=== PATIENT | male | born 1995 | race Caucasian/White ===

== ENCOUNTER 2019-03-11 14:54 | Inpatient (IN) ==
[2019-03-11] MEDS ORDERED: SODIUM CHLORIDE 0.9% 1000ML 1,000 ML IV ONE (15:30)
[2019-03-11] MEDS ORDERED: MoRPHine SULFATE 4 MG/ML 1 ML CARP\\VIAL IV STA (15:31)
[2019-03-11] MEDS ORDERED: VANCOMYCIN HCL 2,000 MG in SODIUM CHLORIDE 0.9% 500 ML IV ONE (15:57)
[2019-03-11] MEDS ORDERED: VANCOMYCIN CONSULT ACTIVE PRN ×2 (15:57→18:01)
--- NOTE | 2019-03-11 16:02 | XRay Report ---
LEFT HAND 3 VIEWS HISTORY: middle finger infection COMPARISON: None. FINDINGS: There is no fracture or dislocation. Soft tissue swelling at the PIP joint of the middle fi nger. No underlying bony destruction to suggest osteomyelitis. No radiopaque foreign bodies. IMPRESSION: Soft tissue swelling at the PIP joint of the middle finger. No underlying bony abnormality. Electronically signed by: Adam James M.D. 03/11/2019 4:01 PM
--- NOTE | 2019-03-11 16:08 | Emergency Department Note ---
ED Provider Note CHIEF COMPLAINT: Finger infection HISTORY OF PRESENTING ILLNESS: This is a 23-year-old male who presents the emergency department with complaint of left middle finger infection that has been ongoing for the past 2 weeks. Patient states that he initially injured the finger while doing cow, states he hit the knuckle and the skin split open. He states at the time he had washed it out and put liquid Band-Aid on the wound. He was seen here on 03/01 with concern for the finger becoming infected. He states that he is allergic to penicillins and sulfa drugs, he was subsequently treated with clindamycin and doxycycline at that time, he states he took his last dose today. He states since yesterday he has been having worsening swelling and pain spreading of the finger and has been having difficulty moving the finger because of this. He also has noted some pus draining from the wound, but denies any foul smell. He denies any streaking and he denies any fevers or chills. He did note that he put honey on the wound today to try to treat the infection. He is right-hand dominant. His tetanus is up-to-date. He denies any headaches, chest pain, shortness of breath, abdominal pain, nausea or vomiting, back pain, urinary complaints, or unusual rash. REVIEW OF SYSTEMS: A complete 10 point review of systems was reviewed with the patient with pertinent positives and negatives as per history of present illness. All else were negative. PAST MEDICAL HISTORY: No significant past medical or surgical history SOCIAL HISTORY: Lives at home, he is a current everyday smoker ALLERGIES: None PHYSICAL EXAM: CONSTITUTIONAL: Pleasant and cooperative. Nontoxic-appearing and in no acute distress. Well appearing and well nourished. HEENT: Normocephalic, atraumatic. PERRL, EOMI. TMs normal. Pharynx normal. NECK: Supple, full active range of motion without discomfort. RESPIRATORY: Clear to auscultation bilaterally with no wheezing, crackles, rhonchi or stridor. Equal expansion bilaterally. CARDIOVASCULAR: Regular rate and rhythm with no murmurs, rubs or gallops. Normal peripheral perfusion. No edema. GASTROINTESTINAL: Soft, nontender, nondistended. Bowel sounds present in all quadrants. MUSCULOSKELETAL: There is moderate swelling of the PIP joint on the proximal portion of the left middle finger. Quickly tender to palpation and with any attempts to flex or extend PIP joint. Erythema is most centralized overlying the PIP joint with a slight open wound and a small amount of purulent drainage from the wound. There is no notable erythema, swelling, or tenderness throughout the rest of the hand. INTEGUMENTARY: No rash or other significant dermatologic conditions noted. NEUROLOGIC: Alert and oriented X 4 with normal affect. ED COURSE AND MEDICAL DECISION MAKING: CC: Patient presenting with complaint of finger infection DIFFERENTIAL DIAGNOSIS: Includes, but not limited to cellulitis, abscess, failed outpatient treatment, tenosynovitis, osteomyelitis, among others. INTERPRETATION OF LABS: Mild leukocytosis, no anemia, normal platelets, no significant electrolyte abnormalities, normal renal function. Coagulation factors within normal limits. ESR normal. CRP mildly elevated. IMAGING: LEFT HAND 3 VIEWS HISTORY: middle finger infection COMPARISON: None. FINDINGS: There is no fracture or dislocation. Soft tissue swelling at the PIP joint of the middle finger. No underlying bony destruction to suggest osteomyelitis. No radiopaque foreign bodies. IMPRESSION: Soft tissue swelling at the PIP joint of the middle finger. No underlying bony abnormality. MEDICATION RECONCILIATION: I attest that I have personally reviewed the patient's current medication list. INITIAL VITAL SIGNS REVIEW: I reviewed the patient's initial vital signs and interpret them as follows: T: Afebrile; BP: Hypertensive; HR: Mildly tachycardic; RR: Within normal limit; Pulse Ox: Within normal limits on room a ir. Blood pressure screening: The patient was found to have an elevated blood pressure and was referred to the inpatient team for further management. MDM SUMMARY: Patient was evaluated at bedside, history and physical exam performed. Patient is alert and oriented, in no acute distress, but appears uncomfortable from pain, resting in the stretcher. The left middle finger is moderately swollen, most significant over the PIP joint and extending into the proximal aspect of the finger, erythematous, and warm to the touch. There is purulent drainage from the wound overlying the PIP joint. Significantly limited range of motion of the finger. Review of the patient's chart noting a wound culture from 10 days ago that showed resistance to clindamycin and doxycycline, the 2 antibiotics he was placed on for his infection. The patient is truly allergic to penicillin and sulfa drugs, his only options for treatment are IV at this point. Orders were placed at bedside for labs, IV placement, IV fluid bolus for hydration, IV morphine for pain, IV vancomycin to cover infection, x-ray of the hand to evaluate for osteomyelitis. Patient discussed with Dr. Cronin, who agrees with my assessment, plan, and disposition. Labs and imaging reviewed as above, mild leukocytosis, otherwise unremarkable labs. No evidence of osteomyelitis on x-ray. I do not feel the patient clinically has a tenosynovitis at this time, but I am concerned he may be developing this as he has had rapid worsening of his symptoms over the past 24 hours with decreased range of motion in the finger. I spoke with Dr. Carlson, orthopedic hand surgeon, who agrees that the patient should be admitted and he will evaluate him for possible surgery for washout tomorrow. I spoke with Patito Wen PA-C with the [facility] service, who agrees to evaluate the patient for admission. Patient reassessed multiple times throughout ED stay, he has remained hemodynamically stable and afebrile, and reports his pain is improved with the IV morphine. The patient was updated on all results and plan for admission, he verbalized understanding and was agreeable to this plan. The patient was stable at time of admission. The chart was completed utilizing [employer] Speech voice recognition software. Grammatical errors, random word insertions, pronoun errors, and incomplete sentences are an occasional consequence of this system due to software limitations, ambient noise, and hardware issues. Any formal questions or concerns about the content, text, or information contained within the body of this dictation should be directly addressed to the nurse practitioner for clarification. 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 Last Used Substance Other:: Last use of meth about 5 years ago Results & Data Vital Signs Vital Signs - 24 hr 03/11/19 14:58 Temperature 36.7 C Temperature Source Oral Sepsis Recent Fever Within 48 Hours No Sepsis New/Unexplained Change in Mental Status No Sepsis Action Taken by Nursing No Action Required Pulse Rate 100 H Respiratory Rate 16 Blood Pressure 142/76 H Blood Pressure Mean 98 Pulse Oximetry 97 Oxygen Delivery Method Room Air Laboratory Data Result diagrams: 03/12/19 07:11 03/12/19 07:11 Lab Results 03/11/19 03/11/19 03/11/19 Range/Units 15:40 15:40 15:44 WBC 11.50 H (4.8-10.8) K/uL RBC 5.39 (4.7-6.1) M/uL Hgb 16.1 (14.0-18.0) g/dL Hct 46.1 (42-52) % MCV 85.5 (80-100) fL MCH 29.9 (25-34) pg MCHC 34.9 (32-36) g/dL RDW Std Deviation 42.6 (36.4-46.3) fL RDW Coeff of Fernando 13.7 (11.5-14.5) % Plt Count 192 (130-400) K/uL MPV 11.1 H (7.4-10.4) fL Immature Gran % (Auto) 0.3 % Neut % (Auto) 69.6 % Lymph % (Auto) 18.9 % Atkinson % (Auto) 10.3 % Eos % (Auto) 0.8 % Baso % (Auto) 0.1 % Immature Gran # (Auto) 0.04 H (0.00-0.02) K/uL Neut # (Auto) 8.01 H (1.4-6.5) K/uL Lymph # (Auto) 2.17 (1.2-3.4) K/uL Atkinson # (Auto) 1.18 H (0.11-0.59) K/uL Eos # (Auto) 0.09 (0-0.5) K/uL Baso # (Auto) 0.01 (0-0.2) K/uL ESR 4 (0-14) mm/hr Sodium 138 (136-145) mmol/L Potassium 3.8 (3.5-5.1) mmol/L Chloride 105 (98-107) mmol/L Carbon Dioxide 30 (21-32) mmol/L Anion Gap 3.0 (3-11) BUN 13 (7-18) mg/dl Creatinine 0.77 (0.6-1.4) mg/dl Est Cr Clr Drug Dosing 161.0 ml/min Est GFR ( Amer) 146.2 Est GFR (Non-Af Amer) 126.1 BUN/Creatinine Ratio 17.4 (10-20) Glucose 87 (70-99) mg/dl Calcium 9.6 (8.5-10.1) mg/dl Total Bilirubin 3.4 H (0.2-1) mg/dl Direct Bilirubin 0.2 (0-0.2) mg/dl AST 28 (15-37) U/L ALT 27 (12-78) U/L Alkaline Phosphatase 82 (45-117) U/L C-Reactive Protein 0.30 H (0-0.29) mg/dl Total Protein 7.9 (6.4-8.2) gm/dl Albumin 4.6 (3.4-5.0) gm/dl Globulin 3.3 (2.5-4.0) gm/dl Albumin/Globulin Ratio 1.4 (0.9-2) Administered Medications Hydromorphone HCl (Dilaudid) 0.5 mg IV Q1H PRN PRN Reason: Pain Stop: 03/25/19 19:25 Last Admin: 03/12/19 08:19 Dose: 0.5 mg Documented by: [id number] Admin: 03/12/19 07:14 Dose: 0.5 mg Documented by: [id number] Admin: 03/12/19 06:15 Dose: 0.5 mg Documented by: [id number] Admin: 03/12/19 03:15 Dose: 0.5 mg Documented by: [id number] Admin: 03/12/19 01:05 Dose: 0.5 mg Documented by: [id number] Admin: 03/11/19 23:14 Dose: 0.5 mg Documented by: [id number] Admin: 03/11/19 22:35 Dose: 0.5 mg Documented by: [id number] Admin: 03/11/19 20:27 Dose: 0.5 mg Documented by: [id number] Vancomycin HCl 1,250 mg/ (Sodium Chloride) 275 mls @ 125 mls/hr IV Q8H CARIDAD Stop: 03/22/19 00:00 Last Infusion: 03/12/19 09:17 Dose: 0 mls/hr Documented by: [id number] Admin: 03/12/19 07:15 Dose: 125 mls/hr Documented by: [id number] Infusion: 03/12/19 01:57 Dose: 0 mls/hr Documented by: [id number] Admin: 03/11/19 23:18 Dose: 125 mls/hr Documented by: [id number] Miscellaneous (Remove Nicoderm Patch) 1 ea N/A [facility] Stop: 04/10/19 20:59 Last Admin: 03/12/19 01:43 Dose: 1 ea Documented by: [id number] Nicotine (Nicoderm Cq) 21 mg TD QAM [facility] Stop: 04/10/19 18:44 Last Admin: 03/12/19 07:15 Dose: 21 mg Documented by: [id number] Admin: 03/11/19 20:26 Dose: 21 mg Documented by: [id number] Oxycodone/Acetaminophen (Percocet 5mg/325mg) 1 tab PO Q4H PRN PRN Reason: Moderate Pain Stop: 03/25/19 18:00 Last Admin: 03/11/19 21:24 Dose: 1 tab Documented by: [id number] Discontinued Medications Hydromorphone HCl (Dilaudid) 0.5 mg IV NOW STA Stop: 03/11/19 18:46 Last Admin: 03/11/19 18:57 Dose: 0.5 mg Documented by: [id number] Hydromorphone HCl (Dilaudid) 0.5 mg IV NOW STA Stop: 03/12/19 01:33 Last Admin: 03/12/19 01:37 Dose: 0.5 mg Documented by: [id number] Sodium Chloride (Nss 1000ml) 1,000 mls @ 999 mls/hr IV .Q1H1M ONE Stop: 03/11/19 16:30 Last Infusion: 03/11/19 17:45 Dose: 0 mls/hr Documented by: [id number] Admin: 03/11/19 15:50 Dose: 999 mls/hr Documented by: [id number] Vancomycin HCl 2,000 mg/ (Sodium Chloride) 540 mls @ 200 mls/hr IV NOW ONE; Protocol Stop: 03/11/19 18:38 Last Infusion: 03/11/19 21:15 Dose: 0 mls/hr Documented by: [id number] Admin: 03/11/19 16:36 Dose: 200 mls/hr Documented by: [id number] Morphine Sulfate (Morphine Sulfate) 4 mg IV NOW STA Stop: 03/11/19 15:32 Last Admin: 03/11/19 15:50 Dose: 4 mg Documented by: [id number] Oxycodone/Acetaminophen (Percocet 5mg/325mg) 1 tab PO NOW STA Stop: 03/11/19 17:00 Last Admin: 03/11/19 17:23 Dose: 1 tab Documented by: [id number] Discharge Plan Visit Data *Final* Discharge Date/Time: 03/11/19 17:52 Chief Complaint: Infection, Wound Stated Complaint: FINGER INFECTION ED Provider: Cristian Cronin ED Midlevel Provider: Araceli Miller Discharge Problem: Cellulitis of left middle finger Patient Disposition: Admitted As Inpatient Discharge Instructions Interventions: ED Discharge Assessment Last Done: 03/11/19 17:52
[2019-03-11 16:12] LABS: Albumin Level 4.6 gm/dl (3.4-5.0); BUN Creatinine Ratio 17.4 (10-20); C Reactive Protein 0.3 mg/dl (0-0.29); Calcium 9.6 mg/dl (8.5-10.1); Est GFR (African American) 146.2; Est GFR (Non-African American) 126.1; Potassium 3.8 mmol/L (3.5-5.1)
[2019-03-11 16:16] LABS: Albumin Globulin Ratio 1.4 (0.9-2); Bilirubin,Total 3.4 mg/dl (0.2-1); Globulin 3.3 gm/dl (2.5-4.0); Total Protein 7.9 gm/dl (6.4-8.2)
[2019-03-11 16:19] LABS: Basophils # (auto) 0.01 K/uL (0-0.2); Basophils % (auto) 0.1 %; Eosinophils # (auto) 0.09 K/uL (0-0.5); Eosinophils % (auto) 0.8 %; Hematocrit (blood only) 46.1 % (42-52); Hemoglobin 16.1 g/dL (14.0-18.0); Immature Granulocytes # (auto) 0.04 K/uL (0.00-0.02); Immature Granulocytes % (auto) 0.3 %; Lymphocytes # (auto) 2.17 K/uL (1.2-3.4); Lymphocytes % (auto) 18.9 %; Mean Corpuscular Hgb Conc 34.9 g/dL (32-36); Mean Corpuscular Volume 85.5 fL (80-100); Mean Platelet Volume 11.1 fL (7.4-10.4); Monocytes # (auto) 1.18 K/uL (0.11-0.59); Monocytes % (auto) 10.3 %; Neutrophils # (auto) 8.01 K/uL (1.4-6.5); Neutrophils % (auto) 69.6 %; Platelet Count 192 K/uL (130-400); RDW Coefficient of Variation 13.7 % (11.5-14.5); RDW Standard Deviation 42.6 fL (36.4-46.3); Red Blood Count 5.39 M/uL (4.7-6.1)
[2019-03-11] MEDS ORDERED: OXYCODONE/ACETAMINOPHEN 5mg/325mg TAB PO STA (16:59)
--- NOTE | 2019-03-11 17:02 | History & Physical Report ---
Date of Service March 11, 2019 Assessment & Plan (1) Tenosynovitis of finger: (2) Cellulitis of left middle finger: This is an otherwise healthy 23-year-old male who presents to [facility] ED secondary to worsening left third finger pain x2 weeks. Patient failed outpatient course of antibiotics clindamycin and doxycycline. Wound culture on 03/01 grew Staphylococcus aureus and alpha strep unfortunately resistant to both clindamycin and doxycycline. Sensitive to vancomycin, daptomycin and Bactrim. Patient with severe allergic reaction to sulfa and penicillins. In ED patient does not appear septic and does not meet SIRS criteria. His white blood cell count was elevated to 11.5k. His ESR was normal and CRP mildly elevated at 0.30 Left hand x-ray not consistent with OM, but did reveal soft tissue swelling He received IV vancomycin loading dose. Per ED provider on-call orthopedic physician contact Dr. Carlson, who recommended admission for IV antibiotics, n.p.o. at midnight and possible washout in a.m. Admit to med/surg Continue IV vancomycin dose per pharmacy Follow-up CBC, BMP Obtain additional wound culture given continued purulence IV morphine 4 mg every 4 hours as needed for severe pain Percocet 5-325 p.o. every 4 hours as needed for moderate pain, first dose now Ice as needed N.p.o. at midnight (3) Tobacco abuse: encourage smoking cessation nicotine patch ordered, requested by patient (4) Elevated bilirubin: Bilirubin on admission 3.4 Prior bilirubin in 2015 rated at 1.9 Other LFTs unremarkable Obtain direct bili and repeat total bili in a.m. DVT prophylaxis: Not indicated at this time reevaluate on a daily basis Disposition: Discharge to home when able Follow-up PCP Dr. Cabrera on discharge along with appropriate orthopedic follow-up Patient was seen and examined in collaboration with Dr. Méndez, please see addendum History of Present Illness Chief Complaint: Left third finger pain x2 weeks. Primary Care Provider: Dr. Eh Cabrera This is an otherwise healthy 23-year-old male who presents to [facility] ED secondary to worsening left third finger pain x2 weeks. 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 He presented to [facility] ED on 03/01 secondary to swelling of the left finger and redness. It was felt at that time he likely had cellulitis. Culture was obtained. He has severe allergy to penicillin and Bactrim therefore clindamycin and Doxy were prescribed. Patient completed full course of antibiotic therapy; however, left third finger continued to worsen becoming more swollen, more painful and now this morning with inability to move left third digit. At home patient was trying liquid Band-Aid, Epson salts and smoking marijuana for pain relief. All of which were ineffective. He overall feels lightheaded secondary to pain. Pain upon arrival was 11 out of 10 and now is 8 out of 10 with morphine. He denies ollie fever but feels chilled. He denies sweats, dizziness, syncope, chest pain, shortness of breath, palpitations, nausea, vomiting, diarrhea, change in bowel or urinary habits. His appetite has been unchanged. He denies any medical problems and takes no medications. His surgical history is positive for right second finger surgery. Denies any significant family history as his parents and siblings are all alive and well. He is currently a half a pack a day day smoker for the past 8 years, denies alcohol use, admits to illicit drug use smoking marijuana last on this morning. Allergies Allergy/AdvReac Type Severity Reaction Status Date / Time Penicillins Allergy Anaphylaxis Verified 08/17/18 23:07 Sulfa (Sulfonamide Allergy Anaphylaxis Verified 08/17/18 23:07 Antibiotics) Home Medications Home Medications Medication Instructions Recorded Confirmed Type No Known Home Medications 03/11/19 03/11/19 History Past Med/Surg History Medical History No significant past medical history Ear infection (Resolved) Enteritis (Resolved) Surgical History History of hand surgery Right second finger Family History Other No significant family history Social History Preferred Language: Samoan Communication Ability: Effective Executive Vice President Required: No Beliefs That Will Affect Care: None Current Living Situation: Significant Other current occupational status: employed 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 Other Information That Helps Us Care for You: No Feels Safe at Home: Yes Safety Concerns: Feels Safe At This Time Smoking Status: Current every day smoker Tobacco Type: cigarettes Age Started Using Tobacco: 17 packs per day: 0.5 Years Smoked: 8 Do You Dip or Chew Tobacco: No Second Hand Exposure: No Tobacco Cessation Education Requested by Patient: No Hx Alcohol Use: Yes Hx Substance Use: Yes substance use type: marijuana Substance Use Type Other:: Former user of meth/crack/cocaine/fentanyl per EPIC records Last Used Substance Other:: yesterday Review of Systems Review of Systems: As noted per HPI, 10 systems reviewed and negative unless noted above. Physical Exam Physical Exam: Gen: WD/WN, M, NAD but appears to be in pain, sitting up in bed, pleasant, conversing easily Head: Normocephalic, Atraumatic Eyes: Sclera normal, no conjunctival injection, PERRLA, EOMI ENT: Gross hearing intact, normal pharynx, mucous membranes moist Neck: supple, no adenopathy, No JVD, no bruit, Resp: Clear to auscultation b/l, no wheeze, rales, rhonchi. 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 Significant swelling of all of left third finger with significant decreased range of motion. Patient unable to flex at left third digit PIP or DIP. Significant pain to light touch distally at pulp of finger and approximately to the middle aspect of left hand/base of left third MTP. Still has good cap refill. There is no proximal streaking or adenopathy Skin: warm, moist, no rash, negative turgor, cap refill < 2sec Neuro: Alert and oriented x 3, speech normal, good mood/affect, cran nerve 2-12 intact grossly : deferred Results & Data Vital Signs (Past 12 Hours) Vital Signs Temp Pulse Resp BP Pulse Ox 03/11/19 14:58 36.7 C 100 H 16 142/76 H 97 Laboratory Results Short CBC 03/11/19 Range/Units 15:40 WBC 11.50 H (4.8-10.8) K/uL Hgb 16.1 (14.0-18.0) g/dL Hct 46.1 (42-52) % Plt Count 192 (130-400) K/uL BMP 03/11/19 15:44 Sodium 138 Potassium 3.8 Chloride 105 Carbon Dioxide 30 BUN 13 Creatinine 0.77 Glucose 87 Calcium 9.6 Liver Function 03/11/19 Range/Units 15:44 Total Bilirubin 3.4 H (0.2-1) mg/dl AST 28 (15-37) U/L ALT 27 (12-78) U/L Alkaline Phosphatase 82 (45-117) U/L Albumin 4.6 (3.4-5.0) gm/dl Spec: [id number] Collected: 03/01/19 Received: 03/01/19 [facility] Dr: Spike Heart MD Copy To: Eh Cabrera MD Self, Referred Source: Finger,Left Middle OV Order: Ordered: Surf Wnd Cul/Sm Procedure Result Verified Site Gram Stain Final 03/02/19 Gram Stain Result Rare WBCs Seen Rare Gram Positive Cocci Surface Wound Culture Final 03/03/19-1512 Organism 1 Staphylococcus aureus Quantity Moderate Sens Sensitivities to Follow Organism 2 Alpha strep. not enterococcus Quantity Few Sens No Sensitivities to Follow S aureus RX M.I.C. --- --------- Clindamycin R <=0.5 Daptomycin S <=0.5 Erythromycin R >4 Oxacillin S <=0.25 Tetracycline R >8 Trimeth/Sulfa S <=0.5/9.5 Vancomycin S 1 S = SENSITIVE I = INTERMEDIATE R = RESISTANT Diagnostic Findings L hand xray: IMPRESSION: Soft tissue swelling at the PIP joint of the middle finger. No underlying bony abnormality. Medications Administered Vancomycin HCl 2,000 mg/ (Sodium Chloride) 540 mls @ 200 mls/hr IV NOW ONE; Protocol Stop: 03/11/19 18:38 Last Admin: 03/11/19 16:36 Dose: 200 mls/hr Documented by: [id number] Discontinued Medications Sodium Chloride (Nss 1000ml) 1,000 mls @ 999 mls/hr IV .Q1H1M ONE Stop: 03/11/19 16:30 Last Admin: 03/11/19 15:50 Dose: 999 mls/hr Documented by: [id number] Morphine Sulfate (Morphine Sulfate) 4 mg IV NOW STA Stop: 03/11/19 15:32 Last Admin: 03/11/19 15:50 Dose: 4 mg Documented by: [id number] Code Status & VTE Plan Code Status Full code VTE Prophylaxis Plan VTE Prophylaxis will be ordered: No Reason for no VTE drug order: Treatment not indicated Reason for no VTE mechanical prophylaxis: Treatment not indicated Supervising Physician Co-Signing Physician Notes I have seen and examined the patient and have discussed the case with the provider above. I agree with the assessment and plan as stated with the following exceptions. 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 He states that he is covered in this every day as part of his job and as a result of this his wound has not had a great chance to heal. He also covered his wound with liquid Band-Aid 2 to 3 weeks ago, stating that he had a "deep wound." He then failed antibiotics as above. He is currently afebrile and without chills he does not appear septic on examination. Agree with plan as stated above. Appreciate orthopedics involvement in the case. Other issues include unconjugated hyperbilirubinemia that appears benign and likely result of this infection. Right upper quadrant ultrasound is pending. Of note the patient does not demonstrate evidence of hemolysis. Physical exam reveals a hemodynamically stable patient who is in mild distress secondary to pain in his finger. He has a normal heart and lung exam and again is very dirty including dirty hands and nails. His wound appears somewhat clean and closed with swelling of the PIP joint and minimal ability to flex finger. Pain with palpation extends proximal to the MCP joint and into the hand. His wrist and proximal to this is unaffected. Continue aggressive pain control overnight and await definitive surgical management tomorrow. DO Dev
[2019-03-11 17:39] LABS: Bilirubin Direct 0.2 mg/dl (0-0.2)
[2019-03-11] MEDS ORDERED: ALUMINUM/MAGNESIUM SUSP 30 ML UDC PO PRN (18:01)
[2019-03-11] MEDS ORDERED: POLYETHYLENE (MIRALAX) 17 GM PACK PO PRN (18:01)
[2019-03-11] MEDS ORDERED: MAGNESIUM HYDROXIDE SUSP 30 ML UDC PO PRN (18:01)
[2019-03-11] MEDS ORDERED: OXYCODONE/ACETAMINOPHEN 5mg/325mg TAB PO PRN (18:01)
[2019-03-11] MEDS ORDERED: ACETAMINOPHEN 325 MG TAB PO PRN (18:01)
[2019-03-11] MEDS ORDERED: ONDANSETRON INJ 2 MG/ML 2 ML VIAL IV PRN (18:01)
[2019-03-11] MEDS ORDERED: MoRPHine SULFATE 4 MG/ML 1 ML CARP\\VIAL IV PRN (18:01)
[2019-03-11] MEDS ORDERED: HYDROmorphone INJ 0.5 MG/0.5 ML SYR IV STA (18:45)
[2019-03-11 19:24] LABS: INR 1.1 (0.9-1.1); Prothrombin Time 10.9 Seconds (9.0-12.0)
--- NOTE | 2019-03-11 19:25 | Pharmacy Report ---
Pharmacy Abx Initial Consult - Date of Service March 11, 2019 - Pharmacy Dosing Scope Date of Consult: 03/11/19 Consultation requested by: Dr. Méndez Pharmacy is consulted to initiate Vancomycin IV dosing therapy, order appropriate labs and adjust drug dose/frequency. - Subjective The patient is a 23 year old M admitted on 03/11/19 16:56. - Objective Height: 6 ft Weight: 78 kg Vital Signs (Past 12hrs): Vital Signs Temp Pulse Resp BP BP Pulse Ox 03/11/19 18:14 36.9 C 20 142/75 H 98 03/11/19 14:58 36.7 C 100 H 16 142/76 H 97 Lab Results (24hrs): Laboratory Tests (24 Hours) 03/11/19 03/11/19 03/11/19 15:44 15:40 15:40 WBC 11.50 H Neut # (Auto) 8.01 H ESR 4 Creatinine 0.77 Est Cr Clr Drug Dosing 161.0 C-Reactive Protein 0.30 H Micro Results: Microbiology 03/01/19 16:54 Finger,Left Middle Gram Stain - Final 03/01/19 16:54 Finger,Left Middle Wound Culture - Final Staphylococcus aureus Alpha strep. not enterococcus - Risk Factors for Resistance * Antimicrobial use within the last 90 days - Clindamycin 150mg PO QID x10 days, Doxycyline Hyclate 100mg PO BID x 10 days. Taken simultaneously, both courses completed 03/10. - Assessment & Plan Assessment 23 year old M presents to the ED with worsening infection to left 3rd finger. Mr. Crenshaw previously presented to the ED on 03/01 for a cut to his left middle finger. 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 The pt has a severe allergy to PCNs and sulfa drugs and was discharged with a 10-day course of both Clindamycin and Doxycycline, which he completed on 03/10. Pt now presents with worsening symptoms, including decreased range of motion in the finger, with pus drainage, but no foul odor. Hand Xray shows soft tissue swelling near the joint, with no evidence of osteo involvement. A culture of the finger taken on 03/01 shows MSSA resistant to Clindamycin and Doxycycline, sensitive to Vancomycin (MICHELLE =1). Pt is afebrile, WBC 11.5. Plan Vancomycin for treatment of skin and soft tissue infection of left third finger. Vancomycin IV * Estimated PK Parameters: Vd 0.7 L/kg, Eduardo 0.13 hr-1, t1/2 5 hr * Loading dose: 2000 mg (25 mg/kg) * Maintenance dose: 1250 mg IV (16 mg/kg) every 8 hours * Goal trough level : 15 to 20 mcg/mL * Typically 10-15 for SSTIs, but with positive MSSA culture, would aim for higher trough to avoid risk of advancing to MRSA. * Trough/Random level ordered for 03/12/19 before 4th maintenance dose. Pharmacy will continue to follow and will adjust dose/frequency as necessary. Thank you.
[2019-03-11] MEDS: NICOTINE 21 MG/24 HR TDSY TD SCH (20:26)
[2019-03-11] MEDS: HYDROmorphone INJ 0.5 MG/0.5 ML SYR IV PRN ×3 (20:27→23:14)
--- NOTE | 2019-03-11 20:38 | Ultrasound Report ---
US liver CLINICAL HISTORY: hyperbilirubinemia COMPARISON STUDY: CT of the abdomen and pelvis August 28, 2018. FINDINGS: Liver is sonographically normal. There is no biliary ductal dilatation. The common bile arlin t measures 3 mm in caliber. The gallbladder is partially contracted. This likely accounts for mild ga llbladder wall thickening. There are are no gallstones. There was no sonographic Jimenez sign. The londono creas was obscured by overlying bowel gas. There is no right hydronephrosis. IMPRESSION: 1. No gallstones or biliary ductal dilatation. 2. Obscured pancreas due to bowel gas. 3. Partially contracted gallbladder which likely accounts for mild gallbladder wall thickening. Electronically signed by: Rosalio Gallo M.D. 03/11/2019 8:37 PM
[2019-03-11] MEDS: VANCOMYCIN HCL 1,250 MG in SODIUM CHLORIDE 0.9% 250 ML IV SCH (23:18)
[2019-03-12] MEDS: HYDROmorphone INJ 0.5 MG/0.5 ML SYR IV PRN ×10 (01:05→20:49)
[2019-03-12] MEDS ORDERED: HYDROmorphone INJ 0.5 MG/0.5 ML SYR IV STA (01:32)
--- NOTE | 2019-03-12 03:01 | Consultation Report ---
DATE OF CONSULTATION: 03/11/2019 ORTHOPEDIC HAND SURGERY CONSULTATION Special attention to left middle finger infection. HISTORY OF PRESENT ILLNESS: This is a gentleman who sustained a laceration to the dorsal aspect of the left third digit about 1 month ago. He had increasing pain over the past several days. He went to the Emergency Department about 10 days ago for antibiotics. Cultures were taken which did show staph and strep both of which are resistant to clindamycin and doxycycline, which he was placed on. Notes increasing pain, swelling of the PIP joint and stiffness. He states the pain is severe. PAST MEDICAL HISTORY: Denies any systemic medical problems. SOCIAL HISTORY: Admits to smoking marijuana, but denies any illicit intravenous drug use now or in the past. PHYSICAL EXAMINATION: MUSCULOSKELETAL: Left middle finger examination does show laceration and open wound of the dorsal aspect of the PIP joint. There was a moderate amount of purulent drainage. Finger is warm and swollen and well localized to the PIP joint. He has significant pain with PIP range of motion. He has negative Kanavel signs. He has no swelling in the volar aspect of the finger. Negative Kanavel signs. ASSESSMENT: Left middle finger septic proximal interphalangeal joint with likely extensor tendon rupture. PLAN: I discussed findings and treatment with him. Exam was concerning for septic joint. Plan for irrigation and debridement in the Operating Room shortly. We will continue antibiotics as per hospitalist and Infectious Disease. I counseled him he may need additional washout and I counseled him it is likely that his extensor tendon laceration or rupture, which I would not repair immediately but may repair in delayed fashion and he understands the significant risk of stiffness in the finger. The risks and benefits have been discussed including, but not limited to, risk of infection, nerve injury, stiffness, loss of motion, failure to improve, etc. Reasonable outcomes and options of treatment were discussed. An explanation of appropriate alternatives to the procedure that may be advantageous were discussed and their risks and benefits, as well as the risks and benefits of not proceeding with treatment. I offered to answer any additional inquiries concerning the treatment involved. All the patient's questions were answered. The patient is agreeable, understanding of the treatment plan and alternatives, and wishes to proceed with the treatment plan. Plan for surgical intervention shortly. Three views of the left hand shows no evidence of acute fracture or dislocation and no arthritic changes are seen. No gas or foreign body in the soft tissue.
--- NOTE | 2019-03-12 06:50 | Anesthesiology Consultation ---
Date of Service March 12, 2019 Assessment & Plan Chart Review Chart Review: Acceptable Risk for Surgery and Patient NOT seen in Pre Admission Testing Consults Requested none ASA [id number] Proposed Anesthesia Anesthesia Type: MAC Risk / Benefits Reviewed With: PT / POA / Parent / Guardian, Accepts Plan and Informed Consent Obtained History Surgery Operation Date: 03/12/19 06:45 Proposed Procedures p Incision and Drainage Extremity - Neftali Carlson MD Height/Weight Height: 1.83 m Weight: 78 kg Allergies Allergy/AdvReac Type Severity Reaction Status Date / Time Penicillins Allergy Anaphylaxis Verified 08/17/18 23:07 Sulfa (Sulfonamide Allergy Anaphylaxis Verified 08/17/18 23:07 Antibiotics) Medications Home Medications Medication Instructions Recorded Confirmed Last Taken No Known Home Medications 03/11/19 03/11/19 Unknown Active Medications Generic Name Dose Route Start Last Admin Trade Name Freq PRN Reason Stop Dose Admin Hydromorphone HCl 0.5 mg 03/11/19 19:26 03/12/19 08:19 Dilaudid IV 03/25/19 19:25 0.5 mg Q1H PRN Administration Pain Vancomycin HCl 1,250 mg/ 275 mls @ 125 mls/hr 03/12/19 00:00 03/12/19 09:17 Sodium Chloride IV 03/22/19 00:00 Infused Q8H CARIDAD Infusion Miscellaneous 1 ea 03/11/19 21:00 03/12/19 01:43 Remove Nicoderm Patch N/A 04/10/19 20:59 1 ea HS CARIDAD Administration Nicotine 21 mg 03/11/19 18:45 03/12/19 07:15 Nicoderm Cq TD 04/10/19 18:44 21 mg QAM CARIDAD Administration Oxycodone/Acetaminophen 1 tab 03/11/19 18:01 03/11/19 21:24 Percocet 5mg/325mg PO 03/25/19 18:00 1 tab Q4H PRN Administration Moderate Pain NPO Date Last Intake of Fluids: 03/11/19 Time Last Intake of Fluids: 22:00 Date Last Intake of Solids: 03/11/19 Time Last Intake of Solids: 22:00 Past Medical History Medical History No significant past medical history Ear infection (Resolved) Enteritis (Inactive) Denies any major PMH Exercise / Class Metabolic Activity II 4-5 Yardwork/Stairs/Walk up hill Past Family History Family History Other No significant family history Past Surgical History Surgical History History of hand surgery Right second finger S/P wisdom tooth extraction Past Anesthesia History No Hx of Anesthesia Complications and No Family Hx of Anesthesia Complications History of PONV No Hx of PONV and No Hx of Motion Sickness Social History Smoking Status: Current every day smoker (1/2 ppd x 8 years) tobacco type: cigarettes Do You Dip or Chew Tobacco: No Hx Alcohol Use: Yes alcohol intake frequency: holidays/special occasions only Hx Substance Use: Yes substance use type: marijuana (Last use yesterday am) Substance Use Type Other:: 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 Last Used Substance Other:: Last use of meth about 5 years ago Review of Systems Respiratory: no cough and no dyspnea Cardiovascular: no chest pain and no dyspnea on exertion Gastrointestinal: no heartburn, no nausea and no vomiting Physical Exam Vital Signs Last Vital Signs Temp 36.5 C 03/12/19 07:57 Pulse 77 03/12/19 07:57 Resp 18 03/12/19 07:57 BP 132/69 03/12/19 07:57 Pulse Ox 100 03/12/19 07:57 ENMT Mouth: no TMJ abnormality and no TMJ clicking Thyromental Distance: > or= 3.5 Finger Breadths Mallampati Class: I Neck normal visual inspection and trachea midline; neck extension not limited Respiratory Auscultation: lungs clear to auscultation bilaterally Cardiovascular Rate/Rhythm: regular rate and regular rhythm Heart Sounds: no murmur Vessels: no carotid bruit Psychiatric Orientation: alert and oriented x 3 Testing Laboratory Results 03/11/19 15:40 03/11/19 15:44 03/11/19 19:01 PT 10.9 INR 1.1 Electrocardiogram Date: 03/11/19 Findings: + SB @ (57 bpm) Sinus bradycardia ST elevation, consider early repolarization Borderline ECG No previous ECGs available
[2019-03-12] MEDS: NICOTINE 21 MG/24 HR TDSY TD SCH (07:15)
[2019-03-12] MEDS: VANCOMYCIN HCL 1,250 MG in SODIUM CHLORIDE 0.9% 250 ML IV SCH ×3 (07:15→22:13)
[2019-03-12 07:25] LABS: Basophils # (auto) 0.02 K/uL (0-0.2); Basophils % (auto) 0.3 %; Eosinophils # (auto) 0.12 K/uL (0-0.5); Eosinophils % (auto) 1.5 %; Hematocrit (blood only) 42.8 % (42-52); Immature Granulocytes # (auto) 0.01 K/uL (0.00-0.02); Immature Granulocytes % (auto) 0.1 %; Lymphocytes # (auto) 1.99 K/uL (1.2-3.4); Lymphocytes % (auto) 25.6 %; Mean Corpuscular Volume 84.8 fL (80-100); Mean Platelet Volume 10.6 fL (7.4-10.4); Monocytes % (auto) 10.3 %; Neutrophils # (auto) 4.82 K/uL (1.4-6.5); Neutrophils % (auto) 62.2 %; Platelet Count 150 K/uL (130-400); Red Blood Count 5.05 M/uL (4.7-6.1); White Blood Count 7.76 K/uL (4.8-10.8)
[2019-03-12 08:04] LABS: Alanine Aminotransferase 21 U/L (12-78); Albumin Level 3.8 gm/dl (3.4-5.0); Aspartate Aminotransferase 17 U/L (15-37); BUN Creatinine Ratio 17.1 (10-20); Bilirubin Direct 0.2 mg/dl (0-0.2); Blood Urea Nitrogen 10 mg/dl (7-18); C Reactive Protein 1.81 mg/dl (0-0.29); Calcium 9.1 mg/dl (8.5-10.1); Carbon Dioxide 24 mmol/L (21-32); Chloride 110 mmol/L (98-107); Creatinine Clr Calc Pharmacy 206.6 ml/min; Est GFR (African American) > 150.0; Est GFR (Non-African American) 139.7; Glucose 86 mg/dl (70-99); Potassium 3.9 mmol/L (3.5-5.1); Sodium 140 mmol/L (136-145)
[2019-03-12] MEDS ORDERED: ATROPINE SULFATE 0.1 MG/ML 10ML SYR IV PRN (08:04)
[2019-03-12] MEDS ORDERED: PROMETHAZINE HCL 12.5 MG in SODIUM CHLORIDE 0.9% 50 ML IV PRN (08:04)
[2019-03-12] MEDS ORDERED: HYDROmorphone INJ 1 MG/ML SYRINGE IV PRN (08:04)
[2019-03-12] MEDS ORDERED: PHENYLEPHRINE 100MCG/ML 5ML SYR IV PRN (08:04)
[2019-03-12] MEDS ORDERED: ePHEDrine sulfate 50 MG/ML AMP IV PRN (08:04)
[2019-03-12] MEDS ORDERED: ONDANSETRON INJ 2 MG/ML 2 ML VIAL IV PRN (08:04)
[2019-03-12 08:21] LABS: Alkaline Phosphatase 72 U/L (45-117); Bilirubin,Total 3.1 mg/dl (0.2-1); Total Protein 6.7 gm/dl (6.4-8.2)
[2019-03-12] MEDS ORDERED: MIDAZOLAM HCL 1 MG/ML 2ML VIAL ONE ×2 (09:28→10:11)
[2019-03-12] MEDS ORDERED: fentaNYL citrate 100 MCG/2 ML VIAL ONE ×2 (09:28→10:54)
[2019-03-12] MEDS ORDERED: PROPOFOL IV EMULSION 10 MG/ML 20 ML VIAL IV ONE (09:28)
--- NOTE | 2019-03-12 09:52 | Orthopedic Progress Note ---
Date of Service March 12, 2019 Assessment & Plan (1) Finger infection: We will plan for irrigation and debridement of left middle finger PIP joint Present on Admission?: Yes Subjective Patient has continued pain in the finger. He states pain is gotten worse Review of Systems Review of Systems: Denies any complaints of fever chills or other problems Physical Exam Physical Exam: Exam shows swelling and tenderness of the PIP joint with significant pain with range of motion. Gross purulent drainage is seen Results & Data Vital Signs (Past 12 Hours) Vital Signs Temp Pulse Pulse Resp BP Pulse Ox 03/12/19 07:57 36.5 C 77 18 132/69 100 03/11/19 23:17 36.4 C L 74 14 142/75 H 100
[2019-03-12] MEDS ORDERED: LIDOCAINE HCL 1% 20 ML VIAL ONE (09:58)
[2019-03-12] MEDS ORDERED: BUPIVACAINE 0.5 % 5 MG/1 ML MPF 30ML VIAL ONE (09:58)
[2019-03-12] MEDS ORDERED: BACITRACIN INJ 50,000 UNIT VIAL ONE (09:59)
[2019-03-12] MEDS ORDERED: ONDANSETRON INJ 2 MG/ML 2 ML VIAL ONE (10:14)
--- NOTE | 2019-03-12 10:45 | Post Operative Brief Note ---
Immediate Post Op Note v1 Date of Surgery March 12, 2019 Pre & Post Diagnosis Operation Date: 03/12/19 06:45 Pre-Op Diagnosis: Left Middle Finger Septic Proximal Interphalangeal Joint Post-Op Diagnosis: Left Middle Finger Septic Proximal Interphalangeal Joint Procedure Operation Date: 03/12/19 06:45 Actual Procedures p Incision and Drainage Left Middle Finger Infection(Left) - Neftali Carlson MD Surgeon Neftali Carlson MD Residential Program Manager none Estimated Blood Loss 10 Findings Consistent with Post-Op Diagnosis
[2019-03-12] MEDS: fentaNYL citrate 100 MCG/2 ML VIAL IV PRN ×4 (10:55→11:10)
--- NOTE | 2019-03-12 11:35 | Anesthesiology Progress Note ---
Date of Service March 12, 2019 Anesthesia Post Procedure Vital Signs Vital Signs: Temp Pulse Pulse Pulse Pulse Resp BP 03/12/19 11:30 59 L 16 03/12/19 11:20 37.1 C 72 16 03/12/19 11:10 62 18 03/12/19 11:00 55 L 16 03/12/19 10:50 37 C 67 16 03/12/19 07:57 36.5 C 77 18 03/11/19 23:17 36.4 C L 74 14 03/11/19 18:14 36.9 C 20 03/11/19 14:58 36.7 C 100 H 16 142/76 H BP BP Pulse Ox 03/12/19 11:30 129/71 100 03/12/19 11:20 129/76 100 03/12/19 11:10 144/69 H 100 03/12/19 11:00 122/76 100 03/12/19 10:50 124/69 100 03/12/19 07:57 132/69 100 03/11/19 23:17 142/75 H 100 03/11/19 18:14 142/75 H 98 03/11/19 14:58 97 Pain Intensity Left Finger: Pain Intensity: 7 Transfer of Care Handoff Completed per policy Notes Mental Status: alert / awake / arousable Patient Amnestic to Procedure: Yes Nausea / Vomiting: adequately controlled Pain: adequately controlled Airway Patency, RR, SpO2: stable & adequate BP & HR: stable & adequate Hydration State: stable & adequate Anesthetic Complications: no major complications apparent
[2019-03-12] MEDS ORDERED: VANCOMYCIN TROUGH ONE (15:30)
--- NOTE | 2019-03-12 16:38 | Pharmacy Report ---
Pharmacy Abx Dose Short Note - Date of Service March 12, 2019 - Assessment & Plan Assessment 23 year old M receiving Vancomycin 1250mg Q8h for treatment of SSTI of left third finger. Day # 2 of antimicrobial therapy. Pt still afebrile, WBC dropped from 11.5 >> 7.8 today. I&D of wound today in OR. New cultures obtained from finger are pending. Laboratory Tests 03/12/19 15:27 Vancomycin Trough 6.4 Plan Vancomycin * Trough level of 6.4 mcg/mL is subtherapeutic. Please note this level is not quite reflective of steady state, however, the level is much lower than anticipated. Since the patient's dose is already 16mg/kg, will attempt to shorten interval first. * Change to 1250 mg IV every 6 hours * Goal trough level : 10 to 15 mcg/mL - but would try to aim for closer to 15. * Trough or random level ordered for: 03/13/19 before 1600 dose. Pharmacy will continue to follow and will adjust dose/frequency as necessary. Thank you.
[2019-03-12] MEDS ORDERED: HYDROmorphone INJ 1 MG/ML SYRINGE IV STA (16:49)
[2019-03-12] MEDS: ACETAMINOPHEN 500 MG TAB PO SCH (17:05)
[2019-03-12] MEDS: OXYCODONE HCL IR 5 MG TAB (IMMEDIATE RELEASE) PO SCH (17:06)
--- NOTE | 2019-03-12 18:52 | Hospitalist Progress Note ---
Date of Service March 12, 2019 Assessment & Plan (1) Post-operative state: Status post incision and drainage left middle finger infection with Dr. Carlson, postop day 0. Pain uncontrolled we will proceed with Toradol, Dilaudid, scheduled oxycodone and Tylenol. Adjust as necessary to achieve pain control. Continue vancomycin (2) Tenosynovitis of finger: As above (3) Cellulitis of left middle finger: As above (4) Tobacco abuse: NicoDerm patch (5) Elevated bilirubin: Unconjugated hyperbilirubinemia, improved to 3.1. Right upper quadrant ultrasound was negative. (6) DVT prophylaxis: Lovenox/SCDs Full Dispo-per Ortho Cely Méndez DO [facility] Hospitalist Subjective 23-year-old man status post incision and drainage by Ortho hand this morning. Finger is wrapped with some bloody drainage on the bandage. Patient reports pain is uncontrolled. He is only been using IV pain medications today. We discussed the importance of having oral medications behind this and decided on a regimen of oxycodone 5 mg every 8 hours +1000 mill grams of Tylenol every 8 hours scheduled for 6 doses. IV Dilaudid as needed and would reassess in approximately 6 to 8 hours. He is otherwise tolerating food without issue and ambulating without issue. No other symptoms are present. Patient denies fevers or chills. Review of Systems Review of Systems: All systems reviewed & are unremarkable except as noted in HPI & below Physical Exam Physical Exam: CONSTITUTIONAL: WNWD, vitals as above, generally well- appearing EYES: normal conjuctivae, no scleral icterus ENT: MMM RESPIRATORY: clear to auscultation bilaterally, no crackles, rales or wheezes, normal respiratory effort CARDIOVASCULAR: regular rate and rhythm, S1 and 2 heard without murmurs, gallops or rubs, no JVD, no peripheral edema GASTROINTESTINAL: normal bowel sounds, soft, nontender, nondistended MUSCULOSKELETAL: strength 5/5 throughout, head is normocephalic and atraumatic SKIN: warm and dry, multiple tattooes on arms and back and chest NEUROLOGIC: CN 2-12 grossly intact, no gross focal deficits. PSYCHIATRIC: alert cooperative and oriented to person, place and time. Results & Data Vital Signs (Past 12 Hours) Vital Signs Temp Pulse Pulse Resp BP Pulse Ox 03/12/19 15:00 37.1 C 61 20 128/68 97 03/12/19 14:32 36.7 C 62 18 144/78 H 100 03/12/19 12:51 59 L 17 139/86 100 03/12/19 12:09 36.7 C 59 L 19 122/67 03/12/19 11:49 37.1 C 63 15 149/81 H 100 03/12/19 11:30 59 L 16 129/71 100 03/12/19 11:20 37.1 C 72 16 129/76 100 03/12/19 11:10 62 18 144/69 H 100 03/12/19 11:00 55 L 16 122/76 100 03/12/19 10:50 37 C 67 16 124/69 100 03/12/19 07:57 36.5 C 77 18 132/69 100 Laboratory Results Short CBC 03/12/19 Range/Units 07:11 WBC 7.76 (4.8-10.8) K/uL Hgb 15.0 (14.0-18.0) g/dL Hct 42.8 (42-52) % Plt Count 150 (130-400) K/uL [facility] 03/12/19 07:11 Sodium 140 Potassium 3.9 Chloride 110 H Carbon Dioxide 24 BUN 10 Creatinine 0.60 Glucose 86 Calcium 9.1 Liver Function 03/12/19 Range/Units 07:11 Total Bilirubin 3.1 H (0.2-1) mg/dl Direct Bilirubin 0.2 (0-0.2) mg/dl AST 17 (15-37) U/L ALT 21 (12-78) U/L Alkaline Phosphatase 72 (45-117) U/L Albumin 3.8 (3.4-5.0) gm/dl Medications Administered Current Inpatient Medications Acetaminophen (Tylenol) 1,000 mg PO Q8H CARIDAD Stop: 04/11/19 15:59 Last Admin: 03/12/19 17:05 Dose: 1,000 mg Documented by: Al Hydrox/Mg Hydrox/Simethicone (Maalox) 30 ml PO Q6H PRN PRN Reason: Dyspepsia Stop: 04/10/19 18:00 Hydromorphone HCl (Dilaudid) 0.5 mg IV Q1H PRN PRN Reason: Pain Stop: 03/25/19 19:25 Last Admin: 03/12/19 15:40 Dose: 0.5 mg Documented by: Vancomycin HCl 1,250 mg/ (Sodium Chloride) 275 mls @ 125 mls/hr IV Q8H CARIDAD Stop: 03/12/19 19:00 Last Admin: 03/12/19 16:40 Dose: 125 mls/hr Documented by: Vancomycin HCl 1,250 mg/ (Sodium Chloride) 275 mls @ 125 mls/hr IV Q6H CARIDAD Stop: 03/21/19 21:59 Ketorolac Tromethamine (Toradol) 30 mg IV NOW ONE Stop: 03/12/19 18:53 Magnesium Hydroxide (Milk Of Magnesia) 30 ml PO Q6H PRN PRN Reason: Constipation Stop: 04/10/19 18:00 Miscellaneous (Remove Nicoderm Patch) 1 ea N/A HS [facility] Stop: 04/10/19 20:59 Last Admin: 03/12/19 01:43 Dose: 1 ea Documented by: Miscellaneous Information (Consult) 1 ea N/A UD PRN PRN Reason: Consult Stop: 04/10/19 18:00 Nicotine (Nicoderm Cq) [address] [facility] Stop: 04/10/19 18:44 Last Admin: 03/12/19 07:15 Dose: 21 mg Documented by: Ondansetron HCl (Zofran) 4 mg IV Q6H PRN PRN Reason: Nausea Stop: 04/10/19 18:00 Oxycodone HCl (Roxicodone Immediate Rel) 5 mg PO Q8H CARIDAD Stop: 03/14/19 09:01 Last Admin: 03/12/19 17:06 Dose: 5 mg Documented by: Polyethylene Glycol (Miralax Powder Packet) 17 gm PO DAILY PRN PRN Reason: Constipation Stop: 04/10/19 18:00
[2019-03-12] MEDS ORDERED: KETOROLAC 30 MG/ML VIAL IV ONE (19:05)
[2019-03-13] MEDS: OXYCODONE HCL IR 5 MG TAB (IMMEDIATE RELEASE) PO SCH ×2 (00:38→08:51)
[2019-03-13] MEDS: ACETAMINOPHEN 500 MG TAB PO SCH ×2 (00:38→08:51)
[2019-03-13] MEDS: VANCOMYCIN HCL 1,250 MG in SODIUM CHLORIDE 0.9% 250 ML IV SCH ×2 (03:58→11:29)
[2019-03-13 06:30] LABS: Hematocrit (blood only) 44.7 % (42-52); Mean Corpuscular Hgb Conc 35.8 g/dL (32-36); Mean Corpuscular Volume 84.3 fL (80-100); Mean Platelet Volume 10.2 fL (7.4-10.4); Platelet Count 159 K/uL (130-400); RDW Coefficient of Variation 13.8 % (11.5-14.5); RDW Standard Deviation 42.4 fL (36.4-46.3); White Blood Count 7.66 K/uL (4.8-10.8)
[2019-03-13 07:17] LABS: BUN Creatinine Ratio 15.1 (10-20); Blood Urea Nitrogen 10 mg/dl (7-18); Calcium 9.1 mg/dl (8.5-10.1); Carbon Dioxide 25 mmol/L (21-32); Chloride 111 mmol/L (98-107); Creatinine Clr Calc Pharmacy 182.3 ml/min; Est GFR (African American) > 150.0; Est GFR (Non-African American) 132.7; Glucose 88 mg/dl (70-99); Potassium 4.1 mmol/L (3.5-5.1); Sodium 141 mmol/L (136-145)
[2019-03-13 07:46] VITALS: BP 136/69; PULSE 61; TEMP 98.1; O2SAT 99
[2019-03-13] MEDS: NICOTINE 21 MG/24 HR TDSY TD SCH (08:52)
[2019-03-13] MEDS: ENOXAPARIN INJ 40 MG/0.4 ML SYR SQ SCH ×2 (08:53→08:56)
--- NOTE | 2019-03-13 10:51 | Progress Note ---
DATE: 03/13/2019 SUBJECTIVE: Postop day 1, I and D, left middle finger. He is doing well. Notes no new complaints. He states his finger feels significantly improved after surgery and he is currently having minimal pain. OBJECTIVE: Left middle finger Examination: I took his dressings down today. He has a scant amount of serous drainage. He has decrease erythema. He has decrease in purulent drainage. He has negative Kanavel's signs. He has supple motion of the DIP joint and mild stiffness at the PIP joint. ASSESSMENT: Postop day 1, left middle finger arthrotomy and drainage, septic proximal interphalangeal joint. At this point in time, he exhibits significant clinical improvements. I do not feel he will likely require any further surgical treatment. From my standpoint, he may be discharged to the hospital. I would see him as an outpatient on , should he be discharged. Pulmonary cultures do show staph aureus. I would defer to hospitalist service for definitive antibiotic treatment. He may do dry sterile dressing changes once a day. I removed his packing today. Prior cultures from 03/01/2019 did show oxacillin-sensitive Staph, resistant to erythromycin, tetracycline, and clindamycin.
--- NOTE | 2019-03-13 10:55 | Hospitalist Progress Note ---
Date of Service March 13, 2019 Assessment & Plan (1) Post-operative state: Status post incision and drainage left middle finger infection with Dr. Carlson, postop day 0. Pain uncontrolled we will proceed with Toradol, Dilaudid, scheduled oxycodone and Tylenol. Adjust as necessary to achieve pain control. Continue vancomycin (2) Tenosynovitis of finger: As above (3) Cellulitis of left middle finger: As above (4) Tobacco abuse: NicoDerm patch (5) Elevated bilirubin: Unconjugated hyperbilirubinemia, improved to 3.1. Right upper quadrant ultrasound was negative. (6) DVT prophylaxis: Lovenox/SCDs Full Dispo-per Ortho Cely Méndez DO [facility] Hospitalist Results & Data Vital Signs (Past 12 Hours) Vital Signs Temp Pulse Resp BP Pulse Ox 03/13/19 07:45 36.7 C 61 18 136/69 99 03/13/19 04:54 36.4 C L 48 L 16 112/74 97 03/12/19 23:21 36.4 C L 81 18 127/65 97 Laboratory Results Short CBC 03/13/19 Range/Units 06:15 WBC 7.66 (4.8-10.8) K/uL Hgb 16.0 (14.0-18.0) g/dL Hct 44.7 (42-52) % Plt Count 159 (130-400) K/uL BMP 03/13/19 06:15 Sodium 141 Potassium 4.1 Chloride 111 H Carbon Dioxide 25 BUN 10 Creatinine 0.68 Glucose 88 Calcium 9.1 Medications Administered Current Inpatient Medications Acetaminophen (Tylenol) 1,000 mg PO Q8H CARIDAD Stop: 04/11/19 15:59 Last Admin: 03/13/19 08:51 Dose: 1,000 mg Documented by: Al Hydrox/Mg Hydrox/Simethicone (Maalox) 30 ml PO Q6H PRN PRN Reason: Dyspepsia Stop: 04/10/19 18:00 Enoxaparin Sodium (Lovenox) 40 mg SQ QAM CARIDAD Stop: 04/12/19 08:59 Last Admin: 03/13/19 08:56 Dose: Not Given Documented by: Hydromorphone HCl (Dilaudid) 0.5 mg IV Q1H PRN PRN Reason: Pain Stop: 03/25/19 19:25 Last Admin: 03/12/19 20:49 Dose: 0.5 mg Documented by: Vancomycin HCl 1,250 mg/ (Sodium Chloride) 275 mls @ 125 mls/hr IV Q6H CARIDAD Stop: 03/21/19 21:59 Last Infusion: 03/13/19 06:10 Dose: Infused Documented by: Magnesium Hydroxide (Milk Of Magnesia) 30 ml PO Q6H PRN PRN Reason: Constipation Stop: 04/10/19 18:00 Miscellaneous (Remove Nicoderm Patch) 1 ea N/A HS CARIDAD Stop: 04/10/19 20:59 Last Admin: 03/12/19 22:13 Dose: 1 ea Documented by: Miscellaneous Information (Consult) 1 ea N/A UD PRN PRN Reason: Consult Stop: 04/10/19 18:00 Nicotine (Nicoderm Cq) 21 mg TD QAM CARIDAD Stop: 04/10/19 18:44 Last Admin: 03/13/19 08:52 Dose: 21 mg Documented by: Ondansetron HCl (Zofran) 4 mg IV Q6H PRN PRN Reason: Nausea Stop: 04/10/19 18:00 Oxycodone HCl (Roxicodone Immediate Rel) 5 mg PO Q8H CARIDAD Stop: 03/14/19 09:01 Last Admin: 03/13/19 08:51 Dose: 5 mg Documented by: Polyethylene Glycol (Miralax Powder Packet) 17 gm PO DAILY PRN PRN Reason: Constipation Stop: 04/10/19 18:00
--- NOTE | 2019-03-13 11:13 | Discharge Summary ---
Date of Service March 13, 2019 Admission HPI Per Admitting Provider This is an otherwise healthy 23-year-old male who presents to [facility] ED secondary to worsening left third finger pain x2 weeks. 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 He presented to [facility] ED on 03/01 secondary to swelling of the left finger and redness. It was felt at that time he likely had cellulitis. Culture was obtained. He has severe allergy to penicillin and Bactrim therefore clindamycin and Doxy were prescribed. Patient completed full course of antibiotic therapy; however, left third finger continued to worsen becoming more swollen, more painful and now this morning with inability to move left third digit. At home patient was trying liquid Band-Aid, Epson salts and smoking marijuana for pain relief. All of which were ineffective. He overall feels lightheaded secondary to pain. Pain upon arrival was 11 out of 10 and now is 8 out of 10 with morphine. He denies ollie fever but feels chilled. He denies sweats, dizziness, syncope, chest pain, shortness of breath, palpitations, nausea, vomiting, diarrhea, change in bowel or urinary habits. His appetite has been unchanged. He denies any medical problems and takes no medications. His surgical history is positive for right second finger surgery. Denies any significant family history as his parents and siblings are all alive and well. He is currently a half a pack a day day smoker for the past 8 years, denies alcohol use, admits to illicit drug use smoking marijuana last on this morning. Admission Exam Per Admitting Provider Gen: WD/WN, M, NAD but appears to be in pain, sitting up in bed, pleasant, conversing easily Head: Normocephalic, Atraumatic Eyes: Sclera normal, no conjunctival injection, PERRLA, EOMI ENT: Gross hearing intact, normal pharynx, mucous membranes moist Neck: supple, no adenopathy, No JVD, no bruit, Resp: Clear to auscultation b/l, no wheeze, rales, rhonchi. 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 Significant swelling of all of left third finger with significant decreased range of motion. Patient unable to flex at left third digit PIP or DIP. Significant pain to light touch distally at pulp of finger and approximately to the middle aspect of left hand/base of left third MTP. Still has good cap refill. There is no proximal streaking or adenopathy Skin: warm, moist, no rash, negative turgor, cap refill < 2sec Neuro: Alert and oriented x 3, speech normal, good mood/affect, cran nerve 2-12 intact grossly : deferred Principal Diagnosis tenosynovitis 2/2 digit infection s/p I&D with washout Discharge Data Allergies Allergy/AdvReac Type Severity Reaction Status Date / Time Penicillins Allergy Anaphylaxis Verified 08/17/18 23:07 Sulfa (Sulfonamide Allergy Anaphylaxis Verified 08/17/18 23:07 Antibiotics) Consultations 03/11/19 16:32 ED Decision to Admit Stat 03/11/19 16:56 Consult Orthopedic Surgery Routine Procedures Performed Operation Date: 03/12/19 06:45 Actual Procedures p Incision and Drainage Left Middle Finger Infection(Left) - Neftali Carlson MD Ordered Studies 03/11/19 18:32 liver Routine Hospital Course (1) Post-operative state: (2) Tenosynovitis of finger: (3) Cellulitis of left middle finger: (4) Tobacco abuse: (5) Elevated bilirubin: 23-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 He had used liquid Band-Aid and subsequently failed outpatient clindamycin and doxycycline. He had several allergies he had a history of type I allergy to certain antibiotics. He was admitted to the Hospitalist service and IV vancomycin was started. His white blood cell count was elevated to 11.5, his ESR was normal and CRP was mildly elevated at 0.30. He was not septic. Left hand x-ray was not consistent with osteomyelitis but did reveal soft tissue swelling. The orthopedic hand surgeon on-call was Dr. Carlson who performed a washout in the OR the following morning. The patient had no complications aside from pain which was well controlled with toradol and percocet. Based on prior wound cultures which revealed MSSA, he was switched to Zyvox to continue as outpatient. Bactrim was considered however could not be given secondary to allergies. Cost was confirmed with his pharmacist prior to discharge and was not const prohibitive. Smoking cessation was strongly advised. Physical exam on day of discharge was unremarkable aside from finger which was wrapped with a clean dry intact dressing. At time of discharge he was hemodynamically stable and afebrile, pain was controlled and he was otherwise asymptomatic. He was discharged in stable condition with close primary care and orthopedic follow-up. Total Time Total Time Spent Total Time Spent (In Minutes): 60 Total Time Includes: Examination of the Patient, Discharge Planning, Medication Reconciliation and Communication With Other Providers Discharge Plan Discharge Items Patient Disposition: Home - Self-Care Reason For Visit: L 3RD DIGIT TENOSYNOVITIS Discharge Diagnosis: tenosynovitis Discharge Goals: Therapeutic intervention Activity: Per 'Additional Instructions' section Activity Comment: per Orthopedics post operative instructions Non-emergency contact: Primary Care Provider Call non-emergency contact if: you have any medication questions, your symptoms worsen, your pain is not controlled and you have a fever Follow-up/Referrals: PCP,NO [Primary Care Provider] - Diet: Regular Addtl Provider Instructions: ACTIVITY RECOMMENDATIONS: * Avoid lifting anything heavier than a medium water glass until your first post operative visit. SPECIAL CARE INSTRUCTIONS: * Change your bandage daily * Some drainage onto the dressing may occur. This is normal. * If the bandage feels excessively tight, you may loosen the elastic bandage. Then call the physician's office for further instructions. * If possible, keep your hand elevated above the level of your heart for the first 2 post operative days. You may use a sling if necessary. * You should move your fingers regularly (50-100 motions per hour) unless otherwise instructed. SPECIAL PRECAUTIONS: * If you notice increased drainage, fever over 101 degrees F. or severe, unremitting pain, call your physician/office at . * You may have been prescribed pain medication. If you experience nausea and/or skin rash, discontinue this medication and contact our office for an alternative medication. FOLLOW UP VISIT: Please call [facility] to make a follow-up appointment after your surgery at . Please call the [place] [facility] to make an appointment. Please see Dr. Carlson's physician assistant corporation counsel, Carin Morris on for a wound check ADDITIONAL PROVIDER INSTRUCTIONS: Please take all medications as instructed on discharge list below. Please follow all surgical post-operative instructions as listed above. It is recommended that you see your primary care physician within one week of discharge from the hospital. Someone from our staff will contact you on Thursday regarding date and time for this appointment. No working until your first post-operative visit, as lifting is a part of your job. It was a pleasure taking care of you! Please call if you have any questions or problems. You can reach a [facility] hospitalist on duty at [facility] 24 hours a day by calling [phone]. Take care of yourself. Cely Méndez, [facility] Prescriptions: New acetaminophen [Tylenol Extra Strength] 500 mg Tablet 1,000 mg PO Q8H 7 Days Qty: 42 RF: 0 oxycodone 5 mg Tablet 5 mg PO Q8H PRN (Reason: severe pain) Qty: 10 RF: 0 ibuprofen 800 mg tablet 800 mg PO TID PRN (Reason: pain) Qty: 30 RF: 0 linezolid 600 mg tablet 600 mg PO BID 10 Days Qty: 20 RF: 0 No Action No Known Home Medications RF: 0 Stand-Alone Forms: My [facility], Opioid Pain Management Krames/Other Patient Handouts: Care Incision Discharge Orders: Discharge Order (Routine); Ordered 03/13/19 Ordered By: Cely Méndez Admission Data Admit Date/Time: 03/11/19 16:56 Attending Provider: Cely Méndez Admit Provider: Cely Méndez Primary Care Provider: PCP,NO Other Providers: Patito Wen ; Neftali Carlson Caroline V Service: Surgical Services Other Interventions: Discharge Summary Assessment (RN) Last Done: 03/13/19 12:41 DC Date/Time DO NOT enter until pt leaves facility: 03/13/19 14:45
[2019-03-13] MEDS ORDERED: VANCOMYCIN TROUGH ONE (15:30)
--- NOTE | 2019-03-14 07:08 | Operative Report ---
DATE OF OPERATION: 03/12/2019 PREOPERATIVE DIAGNOSIS: Left middle finger, septic proximal interphalangeal joint. POSTOPERATIVE DIAGNOSES: Left middle finger, septic proximal interphalangeal joint, left middle finger extensor tenosynovitis. PROCEDURES: 1. Left middle finger arthrotomy and drainage of PIP joint. 2. Left middle finger extensor tenosynovectomy. SURGEON: Peterson Carlson MD RV BODY MECHANIC: None. ANESTHESIA: Digital block with sedation. 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 He presents after failure of conservative treatment. The risks and benefits have been discussed including, but not limited to, risk of infection, nerve injury, stiffness, loss of motion, failure to improve, etc. Reasonable outcomes and options of treatment were discussed. An explanation of appropriate alternatives to the procedure that may be advantageous were discussed and their risks and benefits, as well as the risks and benefits of not proceeding with treatment. I offered to answer any additional inquiries concerning the treatment involved. All the patient's questions were answered. The patient is agreeable, understanding of the treatment plan and alternatives, and wishes to proceed with the treatment plan. DESCRIPTION OF PROCEDURE: I injected mixture of lidocaine and Marcaine as a digital block prior to prepping and draping. The patient had area of pointing over the dorsal aspect of the PIP joint. I extended this proximally and distally, making an incision over the PIP joint. Dissection was carried down to the skin and subcutaneous tissues. Dorsal veins were cauterized. There was evidence of gross infection and purulence and serous drainage from the PIP joint. I took cultures and there was a rent between the central slip and the lateral band. The central slip was intact. There is a moderate to significant amount of extensor tenosynovitis, localized over the central slip and extensor tendons. I debrided the extensor tenosynovitis, taking care to preserve the underlying central slip. I then performed arthrotomy and drainage of the PIP joint, washing the joint with 2 liters of normal saline with bacitracin. I placed a Wil finger tourniquet and this was removed prior to closure. Hemostasis was obtained with bipolar cautery. Skin was closed with 4-0 nylon and packing was applied in the mid aspect of the wound with iodoform gauze packing. The patient was placed in a soft dressing and sent to the PACU in stable condition. Postoperative plan will be range of motion as tolerated. We will continue antibiotics as per infectious disease. We will monitor for resolution of infection. I attest to the content of the Intraoperative Record and any orders documented therein. Any exception s are noted below.
== END 2019-03-13 14:45 | disposition home or self-care (01) | DRG 506 ==
LOC: ED 14:54 → 3W 16:56
DX: M65.142 Other infective (teno)synovitis, left hand; L03.012 Cellulitis of left finger; Z88.0 Allergy status to penicillin; Z16.24 Resistance to multiple antibiotics; M00.042 Staphylococcal arthritis, left hand; F12.90 Cannabis use, unspecified, uncomplicated; F17.210 Nicotine dependence, cigarettes, uncomplicated; Z88.2 Allergy status to sulfonamides; E80.6 Other disorders of bilirubin metabolism

== ENCOUNTER 2020-08-19 13:27 | Inpatient (IN) ==
[2020-08-19] MEDS ORDERED: DEXTROSE 5% IV ONE ×2 (13:42→14:07)
[2020-08-19] MEDS ORDERED: ACETYLCYSTEINE IV ONE ×2 (13:42→14:07)
[2020-08-19] MEDS ORDERED: SODIUM CHLORIDE 0.9% 1000ML 1,000 ML IV SCH (13:45)
--- NOTE | 2020-08-19 14:05 | Emergency Department Note ---
Impression & Plan Tylenol overdose, Suicide gesture, Nausea & vomiting, Elevated LFTs, Acute upper abdominal pain ED Provider Note Provider: Cristian Cronin MD DATE OF SERVICE:08/19/2020 CHIEF COMPLAINT: Nausea vomiting Tylenol overdose HISTORY OF PRESENT ILLNESS: Patient is a 25-year-old gentleman denies sig nificant past medical history presenting here today complaining of a possible Tylenol overdose and abdominal symptoms. Patient states that he got a fight with his yesterday and around 130 to 2 PM yesterday took a significant overdose of Tylenol. States he took between 47 and 48 tablets of 650 mg Tylenol in attempt to harm and kill himself. Patient states he chased this with 1 beer. Patient states it was quite hard to take this many pills and then over the course of the night developed significant nausea and vomiting. Patient still with some trace blood with one of the episodes of vomiting. He denies any other significant coingestions or toxic ingestions. History several years ago of attempted carbon monoxide suicide but states it was not effective and he did not seek medical treatment or psychiatric treatment at that time. Patient states he was very impulsive and is remorseful now. Patient states had some diarrhea this morning developed some significant upper abdominal pain without tenderness. States he still significantly nauseous and not been able to keep much down t maura. Patient denies any trauma. Patient states he became concerned after looking on things then to call poison control referred him here today. Patient denies that he wants to harm self or kill himself currently. Patient states he is unable to keep down his daily Suboxone is unable to smoke today. REVIEW OF SYSTEMS: A total of 10 review of systems was obtained and negative except as stated above in the HPI. 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 PHYSICAL EXAM: GENERAL: alert and oriented in no acute distress on stretcher Head: normocephalic and atraumatic EYES: No injection, discharge or icterus. NECK: Trachea midline. Supple. ENT: Mucous membranes pink and moist. LUNGS: Airway patent. No retractions. Breath sounds clear HEART: Regular bradycardic rate and rhythm. No chest wall tenderness ABDOMEN: Soft and non-tender, without guarding or rebound. No hepatosplenomegaly or masses SKIN: Acyanotic, warm, dry, without rashes EXTREMITIES: Without swelling, tenderness or deformity NEUROLOGICAL: No focal deficits. No aphasia. No facial droop or slurred speech. Normal strength and tone in the extremities. Sensation to gross touch normal. Ambulatory. Psych: Patient is remorseful and denies SI currently but states he did try to harm himself and overdose with Tylenol temp to kill himself yesterday. Denies homicidal ideation. Not responding to external stimuli. EK bpm sinus bradycardia without PVC or PAC. Some early repolarization changes without significant acute ST elevation consistent with ischemia. No ST depression. QTC within normal limits. CONTINUOUS CARDIAC MONITORING: was ordered and showed a heart rate of 55 bpm in sinus bradycardia Patient's laboratory studies and imaging reviewed. Differential includes Mood disorder, infection, hypoglycemia, electrolyte abnormalities, cardiac sources, intracerebral event, toxicologic, trauma, neurologic, as well as other pathologies. IMPRESSION/MEDICAL DECISION MAKING: Patient presents about 24 hours out from a significant Tylenol overdose. With symptoms consistent with Tylenol overdose. Empirically started on Acetadote in the emergency department and basic labs including INR and LFTs were sent. EKG without significant interval abnormality. In addition to Tylenol, aspirin and alcohol level were sent. UDS was ordered. Benign abdomen without significant tenderness I doubt acute intra-abdominal process such as obstruction or surgical process. Concerned this is related to a significant Tylenol overdose. Patient is remorseful at this time but will need psychiatric evaluation after medically stabilized from his Tylenol overdose. Chest x-ray is obtained given the trace amount of blood in the vomit although I doubt Boerhaave syndrome at this time. Given some IV fluid hydration. Discussed with poison control. LFTs mildly elevated. Bilirubin appears chronically elevated. INR just slightly elevated 1.2. Discussed with poison control. Lab had difficulty running a Tylenol and aspirin level in the patient. Does not appear salicylate toxic at this time. Nicotine patch was ordered per patient request for withdrawal symptoms. Given Acetadote for Tylenol overdose given his LFT abnormalities in the clinical history. Discussed with the hospitalist. Some of the diarrheal symptoms again may be related to the Subutex issue/unable to take today however he otherwise clinically appears consistent with a Tylenol overdose and was treated as such. DIAGNOSIS: Tylenol overdose, abdominal pain, nausea & vomiting, suicide attempt DISPOSITION: Hospitalist will evaluate Patient was agreeable with this plan. Critical Care I have personally spent 32 minutes of critical care time in the direct management of this patient. This includes bedside care, interpretation of diagnostic studies, and testing, discussion with consultants/portion control, patient, and family members, and other required patient management activities. These 32 minutes is in excess of all separately billable procedures. Past Med/Surg History Medical History (Updated 08/19/20 @ 15:03 by Cristian Cronin M.D.) Ear infection Enteritis No significant past medical history Surgical History History of hand surgery Right second finger S/P wisdom tooth extraction Family History Other No significant family history Social History Smoking Status: Current every day smoker Tobacco Type: Cigarettes Age Started Using Tobacco: 15; packs per day: 0.5; Second Hand Exposure: No; Hx Alcohol Use: Yes Hx Substance Use: Yes Last Used Substance Other:: Last use of meth about 5 years ago Substance Use Type Other:: 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 Feels Safe at Home: Yes Assistive Devices: None Allergies Allergies Allergy/AdvReac Type Severity Reaction Status Date / Time Penicillins Allergy Anaphylaxis Verified 08/19/20 14:15 Sulfa (Sulfonamide Allergy Anaphylaxis Verified 08/19/20 14:15 Antibiotics) Home Meds Home Medications Medication Instructions Recorded Confirmed buprenorphine-naloxone 1 tab SUBLINGUAL DAILY 08/19/20 08/19/20 Results & Data (ED) Vital Signs Vital Signs - 24 hr 08/19/20 13:33 08/19/20 13:55 08/19/20 14:03 Temperature 36.4 C L Temperature Source Oral Pulse Rate 63 67 Pulse Rate from SpO2 Sensor 70 Respiratory Rate 20 16 Respiratory Effort / Characteristics Non-Labored Spontaneous Respiratory Depth Normal Respiratory Pattern Regular Blood Pressure 148/75 H 135/59 L Blood Pressure Mean 99 83 Pulse Oximetry 100 98 99 Oxygen Delivery Method Room Air Sepsis Recent Fever Within 48 Hours No Sepsis New/Unexplained Change in Mental Status N/A Sepsis Action Taken by Nursing No Action Required 08/19/20 14:06 08/19/20 14:30 Temperature Temperature Source Pulse Rate 60 65 Pulse Rate from SpO2 Sensor 60 64 Respiratory Rate 14 21 Respiratory Effort / Characteristics Respiratory Depth Respiratory Pattern Blood Pressure 145/57 H Blood Pressure Mean 75 Pulse Oximetry 99 100 Oxygen Delivery Method Sepsis Recent Fever Within 48 Hours Sepsis New/Unexplained Change in Mental Status Sepsis Action Taken by Nursing Laboratory Data Result diagrams: 08/19/20 13:59 08/19/20 13:59 Lab Results 08/19/20 08/19/20 08/19/20 Range/Units 13:57 13:59 13:59 WBC 9.83 (4.8-10.8) K/uL RBC 5.39 (4.7-6.1) M/uL Hgb 16.2 (14.0-18.0) g/dL Hct 47.8 (42-52) % MCV 88.7 (80-100) fL MCH 30.1 (25-34) pg MCHC 33.9 (32-36) g/dL RDW Std Deviation 44.1 (36.4-46.3) fL RDW Coeff of Fernando 13.5 (11.5-14.5) % Plt Count 192 (130-400) K/uL MPV 11.1 H (7.4-10.4) fL Immature Gran % (Auto) 0.3 % Neut % (Auto) 79.9 % Lymph % (Auto) 14.0 % Mchenry % (Auto) 4.8 % Eos % (Auto) 0.8 % Baso % (Auto) 0.2 % Neut # (Auto) 7.85 H (1.4-6.5) K/uL Lymph # (Auto) 1.38 (1.2-3.4) K/uL Mchenry # (Auto) 0.47 (0.11-0.59) K/uL Eos # (Auto) 0.08 (0-0.5) K/uL Baso # (Auto) 0.02 (0-0.2) K/uL Immature Gran # (Auto) 0.03 H (0.00-0.02) K/uL PT 12.1 H (9.0-12.0) Seconds INR 1.2 H (0.9-1.1) APTT 27.1 (21.0-31.0) Seconds PTT Ratio 1.0 Sodium (136-145) mmol/L Potassium (3.5-5.1) mmol/L Chloride (98-107) mmol/L Carbon Dioxide (21-32) mmol/L Anion Gap (3-11) BUN (7-18) mg/dl Creatinine (0.6-1.4) mg/dl Est Cr Clr Drug Dosing ml/min Est GFR ( Amer) Est GFR (Non-Af Amer) BUN/Creatinine Ratio (10-20) Glucose (70-99) mg/dl Lactate (0.4-2.0) mmol/L Calcium (8.5-10.1) mg/dl Magnesium (1.8-2.4) mg/dl Total Bilirubin (0.2-1) mg/dl AST (15-37) U/L ALT (12-78) U/L Alkaline Phosphatase (45-117) U/L Total Creatine Kinase (39-308) U/L Troponin I (0-0.045) ng/ml Total Protein (6.4-8.2) gm/dl Albumin (3.4-5.0) gm/dl Globulin (2.5-4.0) gm/dl Albumin/Globulin Ratio (0.9-2) Lipase (73-393) U/L Salicylates Acetaminophen Ethyl Alcohol mg/dL < 3.0 (0-3) mg/dl 08/19/20 08/19/20 08/19/20 Range/Units 13:59 13:59 13:59 WBC (4.8-10.8) K/uL RBC (4.7-6.1) M/uL Hgb (14.0-18.0) g/dL Hct (42-52) % MCV (80-100) fL MCH (25-34) pg MCHC (32-36) g/dL RDW Std Deviation (36.4-46.3) fL RDW Coeff of Fernando (11.5-14.5) % Plt Count (130-400) K/uL MPV (7.4-10.4) fL Immature Gran % (Auto) % Neut % (Auto) % Lymph % (Auto) % Mchenry % (Auto) % Eos % (Auto) % Baso % (Auto) % Neut # (Auto) (1.4-6.5) K/uL Lymph # (Auto) (1.2-3.4) K/uL Mchenry # (Auto) (0.11-0.59) K/uL Eos # (Auto) (0-0.5) K/uL Baso # (Auto) (0-0.2) K/uL Immature Gran # (Auto) (0.00-0.02) K/uL PT (9.0-12.0) Seconds INR (0.9-1.1) APTT (21.0-31.0) Seconds PTT Ratio Sodium 140 (136-145) mmol/L Potassium 3.4 L (3.5-5.1) mmol/L Chloride 105 (98-107) mmol/L Carbon Dioxide 28 (21-32) mmol/L Anion Gap 6.0 (3-11) BUN 13 (7-18) mg/dl Creatinine 0.77 (0.6-1.4) mg/dl Est Cr Clr Drug Dosing 158.2 ml/min Est GFR ( Amer) 144.1 Est GFR (Non-Af Amer) 124.4 BUN/Creatinine Ratio 16.9 (10-20) Glucose 111 H (70-99) mg/dl Lactate 1.1 (0.4-2.0) mmol/L Calcium 9.1 (8.5-10.1) mg/dl Magnesium 2.2 (1.8-2.4) mg/dl Total Bilirubin 3.3 H (0.2-1) mg/dl AST 82 H (15-37) U/L ALT 118 H (12-78) U/L Alkaline Phosphatase 73 (45-117) U/L Total Creatine Kinase 299 (39-308) U/L Troponin I < 0.015 (0-0.045) ng/ml Total Protein 7.3 (6.4-8.2) gm/dl Albumin 4.1 (3.4-5.0) gm/dl Globulin 3.2 (2.5-4.0) gm/dl Albumin/Globulin Ratio 1.3 (0.9-2) Lipase 44 L (73-393) U/L Salicylates Cancelled Acetaminophen Cancelled Ethyl Alcohol mg/dL (0-3) mg/dl Administered Medications Discontinued Medications Sodium Chloride (Nss 1000ml) 1,000 mls @ 999 mls/hr IV .Q1H1M CARIDAD Stop: 08/19/20 14:45 Last Admin: 08/19/20 14:05 Dose: 999 mls/hr Documented by: [id number] Acetylcysteine 11,850 mg/ (Dextrose) 259.25 mls @ 200 mls/hr IV ONCE ONE; Protocol Stop: 08/19/20 14:59 Last Admin: 08/19/20 14:05 Dose: 200 mls/hr Documented by: [id number] Discharge Plan Visit Data Chief Complaint: Overdose (Intentional) Stated Complaint: TOOK TOO MUCH TYLENOL 4 PILLS/VOMITING/DIARRHEA ED Provider: Cristian Cronin Discharge Problem: Tylenol overdose, Suicide gesture, Nausea & vomiting, Elevated LFTs, Acute upper abdominal pain Forms Stand Alone Forms: [facility], Suicide Prevention Resources Prescriptions Prescriptions: No Action buprenorphine-naloxone 8-2 mg tablet, sublingual 1 tab SUBLINGUAL DAILY RF: 0 Discharge Problem: Tylenol overdose Qualifiers: Encounter type: initial encounter Injury intent: intentional self-harm Qualifie d Code(s): T39.1X2A - Poisoning by 4-Aminophenol derivatives, intentional self- harm, initial encounter Suicide gesture Qualifiers: Encounter type: initial encounter Qualified Code(s): X83.8XXA - Intentional self-harm by other specified means, initial encounter Nausea & vomiting Qualifiers: Vomiting type: unspecified Vomiting Intractability: intractable Qualified Code(s): R11.2 - Nausea with vomiting, unspecified
--- NOTE | 2020-08-19 14:05 | XRay Report ---
XR chest 1V portable HISTORY: vomiting, tylenol overdose COMPARISON: Chest 08/28/2018. FINDINGS: The lungs are clear. Cardiac silhouette is normal in size. No pleural effusions. No pneumot horax. Incidental note is made of a small right azygos lobe. IMPRESSION: No acute process. ACT 112: Negative or not required by law. Electronically signed by: Adam James M.D. 08/19/2020 2:03 PM
[2020-08-19 14:09] LABS: Basophils # (auto) 0.02 K/uL (0-0.2); Basophils % (auto) 0.2 %; Eosinophils # (auto) 0.08 K/uL (0-0.5); Eosinophils % (auto) 0.8 %; Hematocrit (blood only) 47.8 % (42-52); Hemoglobin 16.2 g/dL (14.0-18.0); Immature Granulocytes # (auto) 0.03 K/uL (0.00-0.02); Immature Granulocytes % (auto) 0.3 %; Lymphocytes # (auto) 1.38 K/uL (1.2-3.4); Mean Corpuscular Hemoglobin 30.1 pg (25-34); Mean Corpuscular Hgb Conc 33.9 g/dL (32-36); Mean Corpuscular Volume 88.7 fL (80-100); Mean Platelet Volume 11.1 fL (7.4-10.4); Monocytes # (auto) 0.47 K/uL (0.11-0.59); Monocytes % (auto) 4.8 %; Neutrophils # (auto) 7.85 K/uL (1.4-6.5); Neutrophils % (auto) 79.9 %; Platelet Count 192 K/uL (130-400); RDW Coefficient of Variation 13.5 % (11.5-14.5); RDW Standard Deviation 44.1 fL (36.4-46.3); Red Blood Count 5.39 M/uL (4.7-6.1); White Blood Count 9.83 K/uL (4.8-10.8)
[2020-08-19 14:22] LABS: INR 1.2 (0.9-1.1); Partial Thromboplastin Time 27.1 Seconds (21.0-31.0); Prothrombin Time 12.1 Seconds (9.0-12.0)
--- NOTE | 2020-08-19 14:28 | History & Physical Report ---
Date of Service August 19, 2020 Assessment & Plan (1) Tylenol overdose: original 16-hour infusion is completed the Patient is a history of taking approximately 47 650 mg Tylenol tablets on 08/18/2020 at approximately 1400 hrs. Patient was started on the acetylcysteine infusion protocol. Patient is unable have his Tylenol run due to elevation in bilirubin. After speaking with poison control personally at 1821 hrs. they recommended an additional 16-hour infusion of the 100 mg/kg to begin after 10:44 AM on 08/20/2020. I phoned pharmacy to be assured this would occur additionally they requested that liver function test be checked 4 hours prior to cessation of either 16-hour infusion such that the morning CMP for 08/20 should suffice for this original 16-hour infusion and then an additional CMP was ordered for 11 PM which would be preceding the cessation of the second 16-hour infusion. (2) Suicide gesture: Patient states he was try to kill himself after a fight with his on 08/18 but now feels regretful and remorseful he will have a psychiatric consultation once he is medically cleared (3) History of substance abuse: Patient typically takes Suboxone this will be held (4) DVT prophylaxis: Patient will be on SCDs until we are aware of the extent of his liver injury History of Present Illness Primary Care Provider: NO PCP 25-year-old gentleman denies significant past medical history presenting here today complaining of a possible Tylenol overdose and abdominal symptoms. Patient states that he got a fight with his yesterday and around 130 to 2 PM yesterday took a significant overdose of Tylenol. States he took between 47 and 48 tablets of 650 mg Tylenol in attempt to harm and kill himself. Patient states he chased this with 1 beer. Patient states it was quite hard to take this many pills and then over the course of the night developed significant nausea and vomiting. Patient still with some trace blood with one of the episodes of vomiting. He denies any other significant co ingestions or toxic ingestions. History several years ago of attempted carbon monoxide suicide but states it was not effective and he did not seek medical treatment or psychiatric treatment at that time. Patient states he was very impulsive and is remorseful now. Patient states had some diarrhea this morning developed some significant upper abdominal pain without tenderness. States he still significantly nauseous and not been able to keep much down today. Patient denies any trauma. Patient states he became concerned after looking on things then to call poison control referred him here today. Patient denies that he wants to harm self or kill himself currently. Patient states he is unable to keep down his daily Suboxone is unable to smoke today. Allergies Allergy/AdvReac Type Severity Reaction Status Date / Time Penicillins Allergy Anaphylaxis Verified 08/19/20 14:15 Sulfa (Sulfonamide Allergy Anaphylaxis Verified 08/19/20 14:15 Antibiotics) Home Medications Home Medications Medication Instructions Recorded Confirmed Type buprenorphine-naloxone 1 tab SUBLINGUAL DAILY 08/19/20 08/19/20 History Past Med/Surg History Medical History (Updated 08/19/20 @ 15:03 by Cristian Cronin M.D.) Ear infection Enteritis No significant past medical history Surgical History History of hand surgery Right second finger S/P wisdom tooth extraction Family History Other No significant family history Social History Smoking Status: Current every day smoker Tobacco Type: Cigarettes Age Started Using Tobacco: 15; packs per day: 0.5; Cigarettes Per Day: 10; Second Hand Exposure: No; Hx Alcohol Use: Yes Alcohol type: beer Hx Substance Use: Yes Last Used Substance: Hours (ago) Last Used Substance Other:: Smoked marijuana in AM on 08/19 Substance Use Type Other:: Former user of meth/crack/cocaine/fentanyl per [facility] records. 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 Feels Safe at Home: Yes Safety Concerns: Feels Safe At This Time Assistive Devices: None Review of Systems Review of Systems: Mild distress and fatigue no headache, blurry or double vision no speech or swallowing issues no chest pain, pressure or palpitations no shortness of breath, cough or wheezes no abdominal pain, nausea or vomiting, diarrhea or constipation no dysuria, hematuria or frequency no focal joint pain or swelling no back pain, CVA tenderness or radicular pain no bruising, bleeding or rashes no focal signs of weakness or numbness or altered sensation no complaints of anxiety or depression. Physical Exam Physical Exam: The patient appeared well nourished and normally developed. Vital signs as documented. Head exam is normocephalic atraumatic no scleral icterus Neck is without JVD, thyromegaly, or carotid bruits. Lungs are clear to auscultation, no focal loss of breath sounds Cardiac exam, Rhythm is regular.. No murmurs, rubs or gallops. Abdominal exam reveals normal bowel sounds, soft epigastic tenderness Extremities are nonedematous and both pedal pulses are present Neurologic exam is alert and oriented, no focal loss of strength or sensation Skin is without bruises or rashes Psychologically is without concerns for anxiety or depression. Results & Data Results & Data ([facility]) Vital Signs (Past 12 Hours) Vital Signs Temp Pulse Resp BP Pulse Ox 08/19/20 13:55 98 08/19/20 13:33 97.5 F L 63 20 148/75 H 100 PG Care Time/CCT Total # of Minutes Spent Total Time Spent with Patient: Total time spent is greater than 50% in coordination of care (as documented) at patient's floor/unit and/or counseling patient: Coding Level of Care Code 89068 Initial Inpt Care Lvl 3 Diagnoses Tylenol overdose T39.1X1A Suicide gesture X83.8XXA History of substance abuse F19.11 DVT prophylaxis Z29.9
[2020-08-19 14:31] LABS: Alanine Aminotransferase 118 U/L (12-78); Albumin Level 4.1 gm/dl (3.4-5.0); Aspartate Aminotransferase 82 U/L (15-37); BUN Creatinine Ratio 16.9 (10-20); Blood Urea Nitrogen 13 mg/dl (7-18); Calcium 9.1 mg/dl (8.5-10.1); Carbon Dioxide 28 mmol/L (21-32); Chloride 105 mmol/L (98-107); Creatinine Clr Calc Pharmacy 158.2 ml/min; Est GFR (African American) 144.1; Est GFR (Non-African American) 124.4; Glucose 111 mg/dl (70-99); Lipase 44 U/L (73-393); Magnesium 2.2 mg/dl (1.8-2.4); Potassium 3.4 mmol/L (3.5-5.1); Sodium 140 mmol/L (136-145)
[2020-08-19 14:36] LABS: Albumin Globulin Ratio 1.3 (0.9-2); Alkaline Phosphatase 73 U/L (45-117); Bilirubin,Total 3.3 mg/dl (0.2-1); Creatine Kinase 299 U/L (39-308); Globulin 3.2 gm/dl (2.5-4.0); Total Protein 7.3 gm/dl (6.4-8.2); Troponin I < 0.015 ng/ml (0-0.045)
[2020-08-19] MEDS ORDERED: AcetylCYSTEINE 7,900 MG in DEXTROSE 5% 1,000 ML IV ONE ×2 (14:49→18:45)
[2020-08-19] MEDS ORDERED: ONDANSETRON INJ 2 MG/ML 2 ML VIAL IV STA (15:14)
[2020-08-19] MEDS ORDERED: NICOTINE 21 MG/24 HR TDSY TD SCH (15:15)
[2020-08-19] MEDS ORDERED: ALUMINUM/MAGNESIUM SUSP 30 ML UDC PO PRN (16:52)
[2020-08-19 17:29] LABS: Alanine Aminotransferase 143 U/L (12-78); Albumin Level 3.7 gm/dl (3.4-5.0); Aspartate Aminotransferase 87 U/L (15-37); BUN Creatinine Ratio 17.8 (10-20); Blood Urea Nitrogen 11 mg/dl (7-18); Calcium 8.6 mg/dl (8.5-10.1); Carbon Dioxide 29 mmol/L (21-32); Chloride 106 mmol/L (98-107); Creatinine Clr Calc Pharmacy 196.4 ml/min; Est GFR (African American) > 150.0; Glucose 123 mg/dl (70-99); Potassium 3.7 mmol/L (3.5-5.1); Sodium 137 mmol/L (136-145)
[2020-08-19 17:36] LABS: Albumin Globulin Ratio 1.2 (0.9-2); Alkaline Phosphatase 64 U/L (45-117); Bilirubin,Total 3.8 mg/dl (0.2-1); Total Protein 6.7 gm/dl (6.4-8.2)
[2020-08-19] MEDS: ONDANSETRON INJ 2 MG/ML 2 ML VIAL IV PRN (17:58)
[2020-08-19 18:50] LABS: Base Excess VBG 0.2 mEq/L; pH VBG 7.47 (7.36-7.41)
[2020-08-19] MEDS ORDERED: PROMETHAZINE HCL 6.25 MG in SODIUM CHLORIDE 0.9% 50 ML IV ONE (20:00)
[2020-08-19 20:53] LABS: Amphetamines+Metham, Urine Neg (Neg); Barbiturates, Urine Neg (Neg); Benzodiazepine, Urine Neg (Neg); Cocaine, Urine Neg (Neg); MDMA (Ecstacy), Urine Neg (Neg); Methadone, Urine Neg (Neg); Opiate, Urine Neg (Neg); Phencyclidine, Urine Neg (Neg)
[2020-08-20] MEDS: ONDANSETRON INJ 2 MG/ML 2 ML VIAL IV PRN ×2 (01:10→07:26)
[2020-08-20] MEDS ORDERED: KETOROLAC TROMETHAMINE 15 MG/ML VIAL IV ONE (02:34)
--- NOTE | 2020-08-20 06:24 | Electrocardiogram Report ---
Test Reason : Blood Pressure : / mmHG Vent. Rate : 050 BPM Atrial Rate : 050 BPM P-R Int : 156 ms QRS Dur : 102 ms QT Int : 430 ms P-R-T Axes : 026 063 039 degrees QTc Int : [address] elevation, consider early repolarization Borderline ECG When compared with ECG of 11-MAR-2019 18:19, No significant change was found Confirmed by Sabino Canada ([id number]) on 08/20/2020 6:23:41 AM Referred By: REFERRED SELF Confirmed By:Sabino Canada
[2020-08-20 07:33] LABS: INR 1.3 (0.9-1.1); Prothrombin Time 13.4 Seconds (9.0-12.0)
--- NOTE | 2020-08-20 08:34 | Hospitalist Progress Note ---
Date of Service August 20, 2020 Assessment & Plan (1) Tylenol overdose: took approximately 47 tabs tylenol 650 mg Tylenol on 08/18 at approximately 1400 hrs. Patient was started on the acetylcysteine infusion protocol. original 16-hour infusion is completed will continue NAC 100mg/kg for 16 hours at 1044am on 08-20 poison control following (2) Elevated LFTs: 2' to tylenol hepatotoxicity trending AST/ALT CMP and INR tonight at 2300, per poison control recs I consulted GI who states that if patient develops encephalopathy or INR > 1.5 then transfer to medical center capable of transplant Present on Admission?: Yes (3) Suicide gesture: had an argument with 08/18 no previous suicide attempts endorses depression continue suicide sitter at bedside appreciate psych help (4) Abdominal pain: likely related to intractable vomiting/muscular strain vs liver inflammation ibuprofen prn (5) Major depression: (6) Arthralgia: (7) History of substance abuse: holding suboxone (8) DVT prophylaxis: SCDs Admission and Anticipated Discharge Date Admission Date: August 19, 2020 Subjective Patient complaining of pain all over. States he took the tylenol as suicide attempt on Thursday. He went on to have intractable nonbloody vomiting Thursday night and Thursday. He has no prior episodes of suicide attempts. He does not have diagnosed depression, but has family history of anxiety and depression. Review of Systems Constitutional: no fever, no chills, no fatigue, no weakness, no anorexia, no weight loss and no weight gain Ear, Nose, Mouth, Throat: no nasal congestion, no sore throat and no dysphagia Respiratory: no cough and no dyspnea Cardiovascular: no chest pain, no dyspnea on exertion, no orthopnea and no palpitations Gastrointestinal: + abdominal pain and + nausea; no hematemesis, no dysphagia, no constipation, no diarrhea/loose stools, no blood in stools and no melena Musculoskeletal: no back pain, no joint pain, no myalgia and no muscle weakness Integumentary: no rash, no lesions, no skin ulcer, no erythema, no dry skin and no pruritus Neurologic: no falls, no localized weakness, no generalized weakness, no numbness, no paresthesia, no tremor(s) and no headache(s) Psychiatric: + depression and + suicidal ideation; no homicidal ideation and no anxiety Endocrine: no cold intolerance and no heat intolerance Hematologic / Lymphatic: no easy bleeding and no easy bruising Physical Exam Constitutional: well developed and well nourished; no acute distress Eyes: PERRL, conjunctivae normal, anicteric sclerae ENMT: Mouth: oral mucous membranes not dry Respiratory: normal respiratory effort; no respiratory distress and no labored breathing Auscultation: lungs clear to auscultation bilaterally; no crackles, no rales, no rhonchi and no wheezes Cardiovascular: Rate/Rhythm: regular rate and regular rhythm Heart Sounds: no murmur and no cardiac rub Vessels: normal peripheral pulses and radial pulses present; no JVD Extremities: no edema Gastrointestinal (Abdomen): Inspection/Auscultation: abdomen normal to inspection and normal bowel sounds; abdomen not distended Percussion/Palp ation: + abdomen tender and + guarding; abdomen not rigid and no hepatosplenomegaly Musculoskeletal: Head/Neck/Chest: normocephalic and head atraumatic Spine: no cervical spinal tenderness, no cervical muscular tenderness, no thoracic spinal tenderness and no lumbar spinal tenderness Skin: no rashes, warm and dry multiple tattoos Neurologic: CN's II-XI intact bilaterally and moves all extremities Motor/S ensory: no tremor and no sensory deficit Psychiatric: Orientation: alert, oriented to person, oriented to place and oriented to time Apperance: appropriately groomed; not disheveled Affect: + flat affect; no anxious affect and no tearful affect Mood: + depressed mood Genitourinary: no Kitchen catheter Results & Data Results & Data ([facility] [place]) Vital Signs (Past 12 Hours) Vital Signs Temp Pulse Resp BP Pulse Ox 08/20/20 07:07 36.5 C 61 18 145/83 H 99 08/19/20 23:42 37 C 83 16 151/75 H 99 PG Care Time/CCT Total # of Minutes Spent Total Time Spent with Patient: Total time spent is greater than 50% in coordination of care (as documented) at patient's floor/unit and/or counseling patient: Coding Level of Care Code 56284 Subseq Hosp Care Lvl 3 Diagnoses Tylenol overdose T39.1X2A Encounter type: initial encounter Injury intent: intentional self-harm Elevated LFTs R79.89 Suicide gesture X83.8XXA Encounter type: initial encounter Abdominal pain R10.13 Abdominal location: epigastric Major depression F32.2 Active/Remission status: currently active Major depression episode severity: severe Major depression recurrence: unspecified whether recurrent Psychotic features: without psychotic features Arthralgia M25.541; M25.542 Joint pain location: hand Laterality: bilateral History of substance abuse F19.11 DVT prophylaxis Z29.9 (1) Major depression Active/Remission status: currently active Major depression episode severity: severe Major depression recurrence: unspecified whether recurrent Psychotic features: without psychotic features Qualified Code(s): F32.2 - Major depressive disorder, single episode, severe without psychotic features (2) Suicide gesture Encounter type: initial encounter Qualified Code(s): X83.8XXA - Intentional self-harm by other specified means, initial encounter (3) Arthralgia Joint pain location: hand Laterality: bilateral Qualified Code(s): M25.541 - Pain in joints of right hand; M25.542 - Pain in joints of left hand (4) Tylenol overdose Encounter type: initial encounter Injury intent: intentional self-harm Qualified Code(s): T39.1X2A - Poisoning by 4-Aminophenol derivatives, intentional self-harm, initial encounter (5) Abdominal pain Abdominal location: epigastric Qualified Code(s): R10.13 - Epigastric pain
[2020-08-20 09:19] LABS: Alanine Aminotransferase 882 U/L (12-78); Aspartate Aminotransferase 757 U/L (15-37)
[2020-08-20] MEDS ORDERED: MoRPHine SULFATE 4 MG/ML 1 ML CARP\\VIAL IV STA (10:03)
--- NOTE | 2020-08-20 10:38 | Gastrointestinal Consultation ---
Date of Consultation August 20, 2020 Assessment & Plan (1) Elevated LFTs: (2) Suicide gesture: (3) Tylenol overdose: 1. Continue NAC protocol as prescribed. 2. Trend liver/coag panel. 3. Await psych evaluation. 4. Continue supportive care. 5. If INR >/=1.5 or evidence of encephalopathy, recommend immediate transfer to transplant center due as Tylenol toxicity is the leading cause of acute liver failure. Thank you for allowing us to participate in the care of this patient. If you have any questions or concerns, please do not hesitate contact us. Supervising Physician Co-Signing Physician Notes I personally evaluated the patient and agree with the findings as documented by CHRISTIE Lu Exam: abd: soft, nt, nd continue NAC, monitor labs closely. symptomatically stable at this time. History of Present Illness Reason for Consultation: Tylenol overdose. Elevated liver panel Requesting Physician: Dr. Fischer Attending Physician: Carin Brady MD History of Present Illness Patient is a 25 year-old male with a history of multiple substance abuse on Suboxone therapy admitted to the hospital at the advisement of poison control after he contacted the hotline due to reported ingestion of 47 acetaminophen tablets. Reports this was ingested with 1 beer. Denies any excess alcohol use. States he took this medication in a suicide attempt after an argument with his spouse. He has apparently attempted suicide once in the past but not with toxic ingestion but with attempting carbon monoxide poisoning. On arrival, he was noted to have a slightly elevated INR of 1.2 and liver panel as follows: TB 3.8, AST 87, and ALT 143. Lipase was normal at 44. Repeat laboratory testing since admission demonstrated an INR of 1.3 and increased AST/ALT to 757 and 882 respectively. He has been appropriately initiated on NAC protocol IV. He is also on suicide watch 1:1 awaiting a psychiatric evaluation. Currently, he is complaining of RUQ radiating to the back pain that is throbbing in nature that is rated 9/10 in intensity. No alleviating or exacerbating factors. There is associated nausea without vomiting. He did just have a defecation. Denies any bloody or black stools. No hematemesis. No acholic stool or dark urine. Denies pruritus, confusion or gait disturbance. He is asking to have his Suboxone administered. No other complaints. Allergies Allergy/AdvReac Type Severity Reaction Status Date / Time Penicillins Allergy Anaphylaxis Verified 08/19/20 14:15 Sulfa (Sulfonamide Allergy Anaphylaxis Verified 08/19/20 14:15 Antibiotics) Home Medications Home Medications Medication Instructions Recorded Confirmed Type buprenorphine-naloxone 1 tab SUBLINGUAL DAILY 08/19/20 08/19/20 History Patient History Medical History Ear infection Enteritis No significant past medical history Surgical History History of hand surgery Right second finger S/P wisdom tooth extraction Family History Other No significant family history Social History Smoking Status: Current every day smoker Tobacco Type: Cigarettes Age Started Using Tobacco: 15; packs per day: 0.5; Cigarettes Per Day: 10; Second Hand Exposure: No; Hx Alcohol Use: Yes Alcohol type: beer Hx Substance Use: Yes Last Used Substance: Hours (ago) Last Used Substance Other:: Smoked marijuana in AM on 08/19 Substance Use Type Other:: 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 Feels Safe at Home: Yes Safety Concerns: Feels Safe At This Time Assistive Devices: None Review of Systems Review of Systems: All systems reviewed & are unremarkable except as noted in HPI & below Physical Exam Constitutional: WD/WN, vitals as above Eyes: EOM intact bilaterally Neck: normal visual inspection Respiratory: normal respiratory effort, lungs clear to auscultation Cardiovascular: Rate/Rhythm: regular rate and regular rhythm Heart Sounds: no murmur Gastrointestinal (Abdomen): normal bowel sounds, soft, nontender, no hepatosplenomegaly Musculoskeletal: Extremities: extremities normal to inspection Skin: no rashes, warm and dry Psychiatric: Orientation: alert and oriented x 3 Eye Contact: good eye contact Mood: + anxious mood Results & Data ([facility]) Vital Signs (Past 12 Hours) Vital Signs Temp Pulse Resp BP Pulse Ox 08/20/20 07:07 36.5 C 61 18 145/83 H 99 08/19/20 23:42 37 C 83 16 151/75 H 99 Laboratory Results Abnormal lab results 08/19/20 08/19/20 08/19/20 Range/Units 13:59 13:59 13:59 MPV 11.1 H (7.4-10.4) fL Neut # (Auto) 7.85 H (1.4-6.5) K/uL Immature Gran # (Auto) 0.03 H (0.00-0.02) K/uL PT 12.1 H (9.0-12.0) Seconds INR 1.2 H (0.9-1.1) VBG pH (7.36-7.41) VBG pCO2 (38-50) mmHg Potassium 3.4 L (3.5-5.1) mmol/L Anion Gap (3-11) Glucose 111 H (70-99) mg/dl Total Bilirubin 3.3 H (0.2-1) mg/dl AST 82 H (15-37) U/L ALT 118 H (12-78) U/L Lipase 44 L (73-393) U/L U Marijuana (THC) Screen (Neg) 08/19/20 08/19/20 08/19/20 Range/Units 16:55 18:23 20:20 MPV (7.4-10.4) fL Neut # (Auto) (1.4-6.5) K/uL Immature Gran # (Auto) (0.00-0.02) K/uL PT (9.0-12.0) Seconds INR (0.9-1.1) VBG pH 7.47 H (7.36-7.41) VBG pCO2 33 L (38-50) mmHg Potassium (3.5-5.1) mmol/L Anion Gap 2.0 L (3-11) Glucose 123 H (70-99) mg/dl Total Bilirubin 3.8 H (0.2-1) mg/dl AST 87 H (15-37) U/L ALT 143 H (12-78) U/L Lipase (73-393) U/L U Marijuana (THC) Screen Pos H (Neg) 08/20/20 08/20/20 Range/Units 07:10 08:36 MPV (7.4-10.4) fL Neut # (Auto) (1.4-6.5) K/uL Immature Gran # (Auto) (0.00-0.02) K/uL PT 13.4 H (9.0-12.0) Seconds INR 1.3 H (0.9-1.1) VBG pH (7.36-7.41) VBG pCO2 (38-50) mmHg Potassium (3.5-5.1) mmol/L Anion Gap (3-11) Glucose (70-99) mg/dl Total Bilirubin (0.2-1) mg/dl AST 757 H (15-37) U/L ALT 882 H (12-78) U/L Lipase (73-393) U/L U Marijuana (THC) Screen (Neg) PG Care Time/CCT Total # of Minutes Spent Total Time Spent with Patient: Total time spent is greater than 50% in coordination of care (as documented) at patient's floor/unit and/or counseling patient: Coding Level of Care Code 77184 Inpt Consult Level 4 Diagnoses Elevated LFTs R79.89 Suicide gesture X83.8XXA Encounter type: initial encounter Tylenol overdose T39.1X2A Encounter type: initial encounter Injury intent: intentional self-harm (1) Suicide gesture Encounter type: initial encounter Qualified Code(s): X83.8XXA - Intentional self-harm by other specified means, initial encounter (2) Tylenol overdose Encounter type: initial encounter Injury intent: intentional self-harm Qualified Code(s): T39.1X2A - Poisoning by 4-Aminophenol derivatives, intentional self-harm, initial encounter
[2020-08-20] MEDS ORDERED: AcetylCYSTEINE 7,900 MG in DEXTROSE 5% 1,000 ML IV ONE (10:45)
[2020-08-20] MEDS: IBUPROFEN 200 MG TAB PO PRN ×2 (11:56→19:34)
--- NOTE | 2020-08-20 13:11 | Psychiatric Consultation ---
Date of Consultation August 20, 2020 Impression / Recommendations Impression Dr. Akua Burden was directly involved in review and discussion of the patient's case and participated in medical decision making regarding treatment recommendations. RECOMMENDATIONS: 08/20 - Psychiatric consultation requested by hospitalist service to evaluate patient s/p intentional Tylenol overdose. Documentation from the ED and initial H&P suggests patient reported taking 47-48 tablets of 650mh Tylenol in an intentional overdose with intent to "harm or kill himself." - Medical treatment of patient per primary team, s/p intentional Tylenol overdose. Poison control has been providing recommendations and GI service has been consulted for recommendations as well. - Pt did admit to taking the Tylenol with the intent to end his life, specifically purchasing the bottle of medication to use for this purpose. He reports history of depression, but denied regularly experiencing SI. Pt's depressive symptoms reported seem subclinical, as he reports depressed mood that resolves after a few hours. No change in appetite, sleep, or concentration. This would certainly be worth further evaluation once patient is stabilized, and patient would likely benefit from individual therapy regardless - which he is agreeable for at this time. - Pt reports he does not feel inpatient psychiatric treatment would be beneficial. Brief overview of potential recommendations was provided. Pt is aware that inpatient psychiatric treatment may be recommended and will be determined based on collateral information received from patient's and continued observation and interaction with the patient regarding aftercare and safety planning. In the interim, patient should not be permitted to leave the hospital AMA. A 302 petitioning statement has been prepared based on events reported by patient, and can be utilized to hold patient on the medical floor until the time that he is medically cleared and psychiatric recommendations can be provided. - Pt is presently denying SI, is reporting remorse, and is agreeable with signing appropriate ROIs to gather collateral information. It is felt that risk of acute harm to self in the hospital setting is low. Could consideration discontinuation of 1:1 if clinically appropriate; however, would suggest routine checks to ensure safety. - Appreciate the opportunity to participate in the care of this patient. Please reach out to our service with any additional questions or updates. Psych History Identifying Data 25-year-old male admitted medically on 08/19/2020 after presenting to the ED s/p intentional Tylenol overdose. Documentation suggests the patient admitted to intentionally taking 47-48 tablets of 650mg Tylenol with intent to "harm or kill himself." Psychiatric consultation was ordered by hospitalist service to evaluate patient s/p intentional overdose. Chief Complaint "I took too much Tylenol and I almost ." History of Present Illness Francisco J Crenshaw is a 25-year-old male admitted medically on 08/19/2020 after pre senting to the ED s/p intentional Tylenol overdose. Documentation suggests the patient admitted to intentionally taking 47-48 tablets of 650mg Tylenol with intent to "harm or kill himself." ED documentation states the patient took the pills between 1330 and 1400 the day prior to admission, following a fight with his . Pt admitted to taking the medication in combination with 1 beer. Pt admitted to developing nausea/vomiting as well as diarrhea and abdominal pain, which led to his presentation. Pt did have a previous suicide attempt via carbon monoxide poisoning, but states it did not result in the expected outcome and patient did not receive any medical attention. Pt is cooperative with psychiatric assessment completed by this provider. He is observed to be sleeping, laying in bed with 1:1 at bedside. Pt reports willingness to engage in conversation and states "I took too much Tylenol and I almost ." Pt states that he had been watching his two young daughters on the day of the overdose, while his was picking up a prescription. He states that just prior to his returning home, the daughters left the room. Per patient's report, this led to his initiating an argument "saying I wasn't fit to be a dad" and "that I can't be trusted to watch the kids." Pt states that he left their home and began driving, developing thoughts of "I felt that if I'm not capable of being a good parent, what am I capable of?" Pt admits to driving his car to the [employer] and purchasing a bottle of Tylenol with the intent to overdose. Pt admitted to taking "the whole bottle except two pills." Pt does appear to be upset by his actions, and becomes tearful when discussing the fact that his actions have contributed to need for medical treatment. Pt denies present SI and states he is hopeful to get better soon. He reports "I don't want my girls to grow up without a dad. I grew up without a dad, and it was hard." Pt states he is interested in outpatient therapy and is considering antidepressants, as "I am depressed, it runs in my family." Pt is expressing remorse for his actions, but is also reporting ability to appreciate the seriousness of his suicide attempt. At this time, patient is declining to consider inpatient psychiatric treatment as he feels "all I need is to be able to talk to someone, and I'm motivated to make sure I follow-up." Pt was made aware of potential to work with patient on an appropriate safety plan, but that there is also potential that inpatient psychiatric treatment will be recommended - and can be completed on either a voluntary or involuntary basis based on patient's ability to appreciate the severity of the situation and need for treatment. Pt has been cooperative with recommendations thus far, and does seem to be forthcoming with information. Pt denied other needs or concerns at this time. Past Psychiatric History Current Psychiatric Diagnosis: pt reports history of "depression" - no formal diagnosis Outpatient Services: None; reports history of outpatient D&A counseling through [facility] Previous Psych Admissions: None History of Previous Suicide Attempt: Yes (attempt by carbon monoxide poisoning 7 years ago) Past Medication Trials: Denied Allergies Allergy/AdvReac Type Severity Reaction Status Date / Time Penicillins Allergy Anaphylaxis Verified 08/19/20 14:15 Sulfa (Sulfonamide Allergy Anaphylaxis Verified 08/19/20 14:15 Antibiotics) Home Medications Home Medications Medication Instructions Recorded Confirmed Type buprenorphine-naloxone 1 tab SUBLINGUAL DAILY 08/19/20 08/19/20 History Family History Pt reports depression in both parents. He reports mother has history of alcohol abuse. Denies family history of suicide attempt or completion. Substance Abuse History Admits to daily tobacco use, 0.5ppd. History of substance abuse, last used methamphetamine 5 years ago. Had also abused cocaine, heroin, and fentanyl. Pt admits to attending D&A rehab on 2 occasions, once in [place] and once in [place]. He is currently prescribed Suboxone. 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 Psychological Trauma History Comment: reports emotional trauma related to "several deaths." Patient History Medical History Ear infection Enteritis No significant past medical history Surgical History History of hand surgery Right second finger S/P wisdom tooth extraction Family History Other No significant family history Social History Smoking Status: Current every day smoker Tobacco Type: Cigarettes Age Started Using Tobacco: 15; packs per day: 0.5; Cigarettes Per Day: 10; Second Hand Exposure: No; Hx Alcohol Use: Yes Alcohol type: beer Hx Substance Use: Yes Last Used Substance: Hours (ago) Last Used Substance Other:: Smoked marijuana in AM on 08/19 Substance Use Type Other:: 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 Pt is appropriately dressed for setting, wearing hospital gown. Dark hair appears mildly unkempt, but not unruly. He has several tattoos covering his arms. Eye Contact: good eye contact Motor Behavior: no abnormal motor movements (observed while laying in bed ) Speech: normal rate/rhythm/volume of speech Affect: + depressed affect, + tearful affect and mood congruent with affect Mood: + depressed mood Thought Process: goal directed thought process and clear/coherent thought process Thought Content: reality based without delusions; no hopelessness and no worthlessness Admits to feeling worthless and hopeless prior to toxic Tylenol ingestion, denies those feelings now Suicidal Thoughts: denies suicidal thoughts and denies suicidal intent Denies present SI, but admits to taking excessive Tylenol with the intent to end his life. Homicidal Thoughts: denies homicidal thoughts Hallucinations: no auditory hallucinations and no visual hallucinations Cognition: attention grossly intact and language grossly intact Estimated Intelligence: consistent with education level Insight: + fair insight (at least as it relates to post- overdose status ) Judgement: + fair judgement Vital Signs (Past 24 Hours): Last Vital Signs Temp 36.5 C 08/20/20 07:07 Pulse 61 08/20/20 07:07 Resp 18 08/20/20 07:07 BP 145/83 H 08/20/20 07:07 Pulse Ox 99 08/20/20 07:07 Review of Systems Constitutional: reports poor appetite Cardiovascular: denied Respiratory: denied Gastrointestinal: reports persistent nausea, though able to tolerate lunch today Neurological: denied Psychiatric: denies symptoms other than stated above Total of at least 10 systems reviewed, pertinent positives as above and in HPI. Results & Data (PSY) Medications Administered Al Hydrox/Mg Hydrox/Simethicone (Aluminum/Magnesium Susp 30 Ml Udc) 30 ml PO Q6H PRN PRN Reason: Dyspepsia Stop: 09/18/20 16:51 Last Admin: 08/20/20 06:19 Dose: 30 ml Documented by: [id number] Acetylcysteine 7,900 mg/ (Dextrose) 1,039.5 mls @ 62.5 mls/hr IV 1045 ONE; Protocol Stop: 08/21/20 03:22 Last Admin: 08/20/20 11:43 Dose: 62.5 mls/hr Documented by: [id number] Ibuprofen (Ibuprofen 200 Mg Tab) 400 mg PO Q8H PRN PRN Reason: Mild Pain Stop: 09/19/20 11:50 Last Admin: 08/20/20 11:56 Dose: 400 mg Documented by: [id number] Ondansetron HCl (Ondansetron Inj 2 Mg/Ml 2 Ml Vial) 4 mg IV Q6H PRN PRN Reason: Nausea Stop: 09/18/20 16:51 Last Admin: 08/20/20 07:26 Dose: 4 mg Documented by: [id number] Admin: 08/20/20 01:10 Dose: 4 mg Documented by: [id number] Admin: 08/19/20 17:58 Dose: 4 mg Documented by: [id number] Coding Level of Care Code 65516 [facility] Intl Hosp Care Lvl 3
[2020-08-20] MEDS: NICOTINE 21 MG/24 HR TDSY TD SCH (18:14)
[2020-08-20] MEDS: LIDOCAINE 5% 1 PATCH TD SCH (21:04)
[2020-08-20] MEDS ORDERED: MoRPHine SULFATE 2 MG/ML CARP IV STA (23:39)
[2020-08-21] LABS: INR 1.2 (0.9-1.1); Prothrombin Time 12.4 Seconds (9.0-12.0)
[2020-08-21 00:17] LABS: Albumin Level 3.6 gm/dl (3.4-5.0); Aspartate Aminotransferase 749 U/L (15-37); BUN Creatinine Ratio 10.6 (10-20); Bilirubin Direct 0.3 mg/dl (0-0.2); Blood Urea Nitrogen 6 mg/dl (7-18); Calcium 8.7 mg/dl (8.5-10.1); Carbon Dioxide 29 mmol/L (21-32); Chloride 106 mmol/L (98-107); Est GFR (African American) > 150.0; Est GFR (Non-African American) 139.7; Glucose 107 mg/dl (70-99); Sodium 140 mmol/L (136-145)
[2020-08-21 00:26] LABS: Alanine Aminotransferase 1264 U/L (12-78); Albumin Globulin Ratio 1.1 (0.9-2); Alkaline Phosphatase 69 U/L (45-117); Bilirubin,Total 1.4 mg/dl (0.2-1); Globulin 3.3 gm/dl (2.5-4.0); Total Protein 6.9 gm/dl (6.4-8.2)
[2020-08-21] MEDS ORDERED: diphenhydrAMINE Capsule 25 MG CAP PO ONE (01:45)
[2020-08-21] MEDS ORDERED: MELATONIN 3 MG TAB PO PRN (01:45)
[2020-08-21] MEDS: IBUPROFEN 200 MG TAB PO PRN ×3 (04:21→23:22)
[2020-08-21] MEDS ORDERED: AcetylCYSTEINE 7,900 MG in DEXTROSE 5% 1,000 ML IV ONE (04:30)
[2020-08-21 08:15] LABS: INR 1.2 (0.9-1.1); Prothrombin Time 12.1 Seconds (9.0-12.0)
[2020-08-21 08:52] LABS: Alanine Aminotransferase 1439 U/L (12-78); Albumin Globulin Ratio 1.1 (0.9-2); Albumin Level 3.7 gm/dl (3.4-5.0); Alkaline Phosphatase 70 U/L (45-117); Aspartate Aminotransferase 723 U/L (15-37); BUN Creatinine Ratio 8.2 (10-20); Bilirubin,Total 1.5 mg/dl (0.2-1); Blood Urea Nitrogen 5 mg/dl (7-18); Calcium 9.2 mg/dl (8.5-10.1); Carbon Dioxide 28 mmol/L (21-32); Chloride 106 mmol/L (98-107); Creatinine Clr Calc Pharmacy 213.7 ml/min; Est GFR (African American) > 150.0; Est GFR (Non-African American) 140.7; Globulin 3.3 gm/dl (2.5-4.0); Glucose 109 mg/dl (70-99); Potassium 3.9 mmol/L (3.5-5.1); Sodium 140 mmol/L (136-145)
[2020-08-21] MEDS: NICOTINE 21 MG/24 HR TDSY TD SCH (08:58)
[2020-08-21] MEDS ORDERED: LIDOCAINE 5% 1 PATCH TD SCH (09:00)
--- NOTE | 2020-08-21 09:15 | Hospitalist Progress Note ---
Date of Service August 21, 2020 Assessment & Plan (1) Suicide gesture: had an argument with 08/18 no previous suicide attempts endorses depression psych recommending inpatient psychiatric care when ready for discharge (2) Opiate dependence: resumed suboxone 4mg daily will start suboxone 8mg daily tomorrow (3) Tylenol overdose: took approximately 47 tabs tylenol 650 mg Tylenol on 08/18 at approxim ately 1400 hrs. Patient was started on the acetylcysteine infusion protocol. completed N-acetylcysteine drip per poison control recommendations (4) Elevated LFTs: 2' to tylenol hepatotoxicity AST/ALT trending down INR trending downs does not need transfer to transplant center (5) Abdominal pain: likely related to intractable vomiting/muscular strain vs liver inflammation ibuprofen prn (6) Major depression: (7) Arthralgia: (8) DVT prophylaxis: [facility] Admission and Anticipated Discharge Date Admission Date: August 19, 2020 Subjective Patient complaining of 4 watery BM's overnight. Uncontrollable pain in hands, shoulders and low back. Hasn't taken suboxone in several days. States he is withdrawaling. No other complaints. Denies suicidal ideation. States his mood is good. Review of Systems Constitutional: no fever, no chills, no fatigue, no weakness, no anorexia, no weight loss and no weight gain Ear, Nose, Mouth, Throat: no nasal congestion, no sore throat and no dysphagia Respiratory: no cough and no dyspnea Cardiovascular: no chest pain, no dyspnea on exertion, no orthopnea and no palpitations Gastrointestinal: + abdominal pain; no nausea, no vomiting, no hematemesis, no dysphagia, no constipation, no diarrhea/loose stools, no blood in stools and no melena Musculoskeletal: + back pain and + stiffness; no joint pain, no myalgia and no muscle weakness Integumentary: no rash, no lesions, no skin ulcer, no erythema, no dry skin and no pruritus Neurologic: no falls, no localized weakness, no generalized weakness, no numbness, no paresthesia, no tremor(s) and no headache(s) Psychiatric: no depression, no suicidal ideation, no homicidal ideation and no anxiety Endocrine: no cold intolerance and no heat intolerance Hematologic / Lymphatic: no easy bleeding and no easy bruising Physical Exam Constitutional: well developed and well nourished; no acute distress Eyes: PERRL, conjunctivae normal, anicteric sclerae ENMT: Mouth: oral mucous membranes not dry Respiratory: normal respiratory effort; no respiratory distress and no labored breathing Auscultation: lungs clear to auscultation bilaterally; no crackles, no rales, no rhonchi and no wheezes Cardiovascular: Rate/Rhythm: regular rate and regular rhythm Heart Sounds: no murmur and no cardiac rub Vessels: normal peripheral pulses and radial pulses present; no JVD Extremities: no edema Gastrointestinal (Abdomen): Inspection/Auscultation: abdomen normal to inspection and normal bowel sounds; abdomen not distended Percussion/Palpation: abdomen soft; abdomen nontender, no guarding, abdomen not rigid and no hepatosplenomegaly Musculoskeletal: Head/Neck/Chest: normocephalic and head atraumatic Spine: no cervical spinal tenderness, no cervical muscular tenderness, no thoracic spinal tenderness and no lumbar spinal tenderness Skin: no rashes, warm and dry Neurologic: CN's II-XI intact bilaterally and moves all extremities Motor/Sensory: no tremor and no sensory deficit Psychiatric: Orientation: alert, oriented to person, oriented to place and oriented to time Apperance: appropriately groomed; not disheveled Affect: + flat affect; no anxious affect and no tearful affect Mood: + depressed mood Genitourinary: no Kitchen catheter Results & Data Results & Data ([facility]) Vital Signs (Past 12 Hours) Vital Signs Temp Pulse Resp BP BP Pulse Ox 08/21/20 07:09 36.8 C 68 16 126/66 99 08/21/20 05:26 36.8 C 70 16 134/67 100 08/20/20 23:49 36.6 C 58 L 18 126/66 100 Laboratory Results INR 1.1 Bili 1.1 AST 522 ALT 1399 ammonia < 10 tylenol < 2 PG Care Time/CCT Total # of Minutes Spent Total Time Spent with Patient: Total time spent is greater than 50% in coordination of care (as documented) at patient's floor/unit and/or counseling patient: Coding Level of Care Code 97486 Subseq Hosp Care Lvl 3 Diagnoses Suicide gesture X83.8XXA Encounter type: initial encounter Opiate dependence F11.23 Substance use status: in withdrawal Tylenol overdose T39.1X2A Encounter type: initial encounter Injury intent: intentional self-harm Elevated LFTs R79.89 Abdominal pain R10.13 Abdominal location: epigastric Major depression F32.2 Active/Remission status: currently active Major depression episode severity: severe Major depression recurrence: unspecified whether recurrent Psychotic features: without psychotic features Arthralgia M25.541; M25.542 Joint pain location: hand Laterality: bilateral DVT prophylaxis Z29.9 (1) Major depression Active/Remission status: currently active Major depression episode severity: severe Major depression recurrence: unspecified whether recurrent Psychotic features: without psychotic features Qualified Code(s): F32.2 - Major depressive disorder, single episode, severe without psychotic features (2) Suicide gesture Encounter type: initial encounter Qualified Code(s): X83.8XXA - Intentional self-harm by other specified means, initial encounter (3) Arthralgia Joint pain location: hand Laterality: bilateral Qualified Code(s): M25.541 - Pain in joints of right hand; M25.542 - Pain in joints of left hand (4) Tylenol overdose Encounter type: initial encounter Injury intent: intentional self-harm Qualified Code(s): T39.1X2A - Poisoning by 4-Aminophenol derivatives, intentional self-harm, initial encounter (5) Abdominal pain Abdominal location: epigastric Qualified Code(s): R10.13 - Epigastric pain (6) Opiate dependence Substance use status: in withdrawal Qualified Code(s): F11.23 - Opioid dependence with withdrawal
--- NOTE | 2020-08-21 10:34 | Gastroenterology Progress Note ---
Date of Service August 21, 2020 Assessment & Plan (1) Elevated LFTs: (2) Suicide gesture: (3) Tylenol overdose: 1. Complete NAC protocol as prescribed. 2. Trend liver/coag panel. 3. Ongoing psychiatric care. 4. Continue supportive care. 5. If INR >/=1.5 or evidence of encephalopathy, recommend immediate transfer to transplant center due as Tylenol toxicity is the leading cause of acute liver failure. Suspect, however, from INR/TB that liver panel will trend down over the next few weeks. Admission and Anticipated Discharge Date Admission Date: August 19, 2020 Supervising Physician Co-Signing Physician Notes I personally evaluated the patient and agree with the findings as documented by CHRISTIE Lu Exam: abd: soft, nt, nd LFTs stable, VSS, continue to complete NAC protocol, good likelihood for full liver recovery. Subjective Patient anxious today reporting ongoing abdominal pain and stating "I hurt all over". Denies any n/v, pruritus, dark urine, acholic stools or fatigue. INR is stable at 1.2. Ammonia level was drawn and normal at <10. AST 723 and ALT 1439 but ALP is normal. TB 1.5. Was seen by psych yesterday and is awaiting further evaluation in this regard today. Review of Systems Review of Systems: All systems reviewed & are unremarkable except as noted in HPI & below Physical Exam Constitutional: WD/WN, vitals as above Eyes: EOM intact bilaterally Neck: normal visual inspection Respiratory: normal respiratory effort, lungs clear to auscultation Cardiovascular: Rate/Rhythm: regular rate and regular rhythm Gastrointestinal (Abdomen): normal bowel sounds, soft, nontender, no hepatosplenomegaly Musculoskeletal: Extremities: extremities normal to inspection Skin: no rashes, warm and dry Psychiatric: Orientation: alert and oriented x 3 Affect: + anxious affect Results & Data Results & Data ([facility]) Vital Signs (Past 12 Hours) Vital Signs Temp Pulse Resp BP BP Pulse Ox 08/21/20 07:09 36.8 C 68 16 126/66 99 08/21/20 05:26 36.8 C 70 16 134/67 100 08/20/20 23:49 36.6 C 58 L 18 126/66 100 Laboratory Results Abnormal lab results 08/20/20 08/20/20 08/20/20 Range/Units 23:04 23:04 23:04 PT 12.4 H (9.0-12.0) Seconds INR 1.2 H (0.9-1.1) Potassium 3.0 L D (3.5-5.1) mmol/L BUN 6 L D (7-18) mg/dl Creatinine 0.58 L (0.6-1.4) mg/dl BUN/Creatinine Ratio (10-20) Glucose 107 H (70-99) mg/dl Total Bilirubin 1.4 H D (0.2-1) mg/dl Direct Bilirubin 0.3 H (0-0.2) mg/dl AST 749 H (15-37) U/L ALT 1264 H (12-78) U/L Ammonia (11-32) umol/L Acetaminophen < 2 L (10-30) ug/ml 08/21/20 08/21/20 08/21/20 Range/Units 07:49 07:49 07:49 PT 12.1 H (9.0-12.0) Seconds INR 1.2 H (0.9-1.1) Potassium (3.5-5.1) mmol/L BUN 5 L (7-18) mg/dl Creatinine 0.57 L (0.6-1.4) mg/dl BUN/Creatinine Ratio 8.2 L (10-20) Glucose 109 H (70-99) mg/dl Total Bilirubin 1.5 H (0.2-1) mg/dl Direct Bilirubin (0-0.2) mg/dl AST 723 H (15-37) U/L ALT 1439 H (12-78) U/L Ammonia (11-32) umol/L Acetaminophen < 2 L (10-30) ug/ml 08/21/20 Range/Units 07:49 PT (9.0-12.0) Seconds INR (0.9-1.1) Potassium (3.5-5.1) mmol/L BUN (7-18) mg/dl Creatinine (0.6-1.4) mg/dl BUN/Creatinine Ratio (10-20) Glucose (70-99) mg/dl Total Bilirubin (0.2-1) mg/dl Direct Bilirubin (0-0.2) mg/dl AST (15-37) U/L ALT (12-78) U/L Ammonia < 10.0 L (11-32) umol/L Acetaminophen (10-30) ug/ml PG Care Time/CCT Total # of Minutes Spent Total Time Spent with Patient: Total time spent is greater than 50% in coordination of care (as documented) at patient's floor/unit and/or counseling patient: Coding Level of Care Code 29713 Subseq Hosp Care Lvl 3 Diagnoses Elevated LFTs R79.89 Suicide gesture X83.8XXA Encounter type: initial encounter Tylenol overdose T39.1X2A Encounter type: initial encounter Injury intent: intentional self-harm (1) Suicide gesture Encounter type: initial encounter Qualified Code(s): X83.8XXA - Intentional self-harm by other specified means, initial encounter (2) Tylenol overdose Encounter type: initial encounter Injury intent: intentional self-harm Qualified Code(s): T39.1X2A - Poisoning by 4-Aminophenol derivatives, intentional self-harm, initial encounter
[2020-08-21] MEDS ORDERED: BUPRENORPHINE/NALOXONE 2/0.5MG 1 TAB PO ONE ×2 (12:16→13:00)
--- NOTE | 2020-08-21 12:24 | Psychiatric Progress Note ---
Date of Service August 21, 2020 Impression / Recommendations (1) Suicide attempt by acetaminophen overdose: 08/21 -patient overdosed on almost a whole bottle of acetaminophen in a suicide attempt. He actually went to the store and bought the Tylenol with intent to take it to end his life, in the context of an argument with his . He has numerous risk factors for suicide, including sex, race, substance abuse, untreated depression, relationship discord, lack of outpatient mental health treatment, and history of multiple high lethality suicide attempts, including an attempt to end his life with carbon monoxide poisoning. Although he initially minimized depressive symptoms, today he is stating he does feel he is depressed and needs treatment, but is unwilling to consider inpatient psychiatric treatment. There is a 302 petition on his chart. -Recommend inpatient psychiatric treatment once medically stable for transfer to behavioral health unit. Typically, this means patient is off IVs, tolerating p.o. medications and food/drink, independent with ambulation/toileting/self- care. I reviewed these recommendations with the patient at length, and he indicated he was not willing for inpatient treatment and wanted to be discharged home. Reviewed voluntary versus involuntary treatment, and recommend that he be placed on an involuntary commitment if he remains unwilling for inpatient treatment. There is a 302 petition on his chart, and if he requests or attempts to leave the hospital, please contact the mental health delegate to issue a warrant. -Recommendations relayed to Dr. Brady. Interval History Identifying Information 25-year-old male admitted medically on 08/19/2020 after presenting to the ED s/p suicide attempt by Tylenol overdose. He reported taking 47-48 tablets of 650mg Tylenol with intent to kill himself. Initial psychiatric consultation performed yesterday, and seen in follow-up today. Chief Complaint "I wanna see about getting on some kind of depression meds". Review of Systems Notes "I'm in so much pain I can't barely move." Subjective Subjective Patient was seen & assessed and interval progress reviewed with psychiatric liaison nurse. Per nursing notes, he is reporting back, abdominal, and joint pain, diarrhea, cramping, chills, poor sleep, nausea, and continues to receive IVF and NAC. AST peaked yesterday at 757, and today has come down to 723; ALT has continued to increase and this morning was 1439. PT is elevated and INR was 1.3 yesterday, 1.2 this morning. He received multiple doses of morphine yesterday. On my assessment today, he states he knows he needs help, but really want outpatient treatment, and doesn't want to be "institutionalized," as he wants to be with his family. 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 Reports he is depressed and "needs to see someone," but is argumentative regarding recommendations inpatient treatment, insisting he does not need it because his family and oriental orthodox believes are protective. Reflected that these things did not stop him from overdosing and causing severe liver damage. He states he "just wants a pill" and wants to be discharged. Reviewed that it is not how antidepressants work, but they take 4 to 6 weeks to take effect, and that we need to address his other stressors and contributing factors, as well as involve his supports, make outpatient referrals, and develop a safety plan, that for all these reasons, I am recommending inpatient psychiatric treatment. Encouraged him to think about it, discussed with his family, and explained that we would need to wait for him to be medically stable enough for transfer to a psychiatric unit before we can address this further. Physical Exam Psychiatric Orientation: alert and cooperative Apperance: + disheveled and appeared stated age Dressed in hospital gown, multiple tattoos UE, lying in bed in NAD, eating. Eye Contact: + fair eye contact Motor Behavior: no abnormal motor movements Very soft speech Affect: + depressed affect and + anxious affect Mood: + depressed mood and + anxious mood Thought Process: goal directed thought process Thought Content: + cognitive distortions and + guilt Suicidal Thoughts: denies suicidal thoughts But admits Tylenol overdose was a suicide attempt Homicidal Thoughts: denies homicidal thoughts Hallucinations: no auditory hallucinations Cognition: recent memory grossly intact, attention grossly intact and language grossly intact Insight: + poor insight Judgement: + poor judgement Vital Signs (Past 24 Hours) Last Vital Signs Temp 36.8 C 08/21/20 07:09 Pulse 68 08/21/20 07:09 Resp 16 08/21/20 07:09 BP 126/66 08/21/20 07:09 Pulse Ox 99 08/21/20 07:09 Results & Data ([facility]) Laboratory Results Laboratory Results - last 24 hr 08/20/20 08/20/20 08/20/20 23:04 23:04 23:04 PT 12.4 H INR 1.2 H Sodium 140 Potassium 3.0 L D Chloride 106 Carbon Dioxide 29 Anion Gap 5.0 BUN 6 L D Creatinine 0.58 L Est Cr Clr Drug Dosing 210.0 Est GFR ( Amer) > 150.0 Est GFR (Non-Af Amer) 139.7 BUN/Creatinine Ratio 10.6 Glucose 107 H Calcium 8.7 Total Bilirubin 1.4 H D Direct Bilirubin 0.3 H AST 749 H ALT 1264 H Alkaline Phosphatase 69 Ammonia Total Protein 6.9 Albumin 3.6 Globulin 3.3 Albumin/Globulin Ratio 1.1 Acetaminophen < 2 L 08/21/20 08/21/20 08/21/20 07:49 07:49 07:49 PT 12.1 H INR 1.2 H Sodium 140 Potassium 3.9 D Chloride 106 Carbon Dioxide 28 Anion Gap 5.0 BUN 5 L Creatinine 0.57 L Est Cr Clr Drug Dosing 213.7 Est GFR ( Amer) > 150.0 Est GFR (Non-Af Amer) 140.7 BUN/Creatinine Ratio 8.2 L Glucose 109 H Calcium 9.2 Total Bilirubin 1.5 H Direct Bilirubin AST 723 H ALT 1439 H Alkaline Phosphatase 70 Ammonia Total Protein 7.0 Albumin 3.7 Globulin 3.3 Albumin/Globulin Ratio 1.1 Acetaminophen < 2 L 08/21/20 07:49 PT INR Sodium Potassium Chloride Carbon Dioxide Anion Gap BUN Creatinine Est Cr Clr Drug Dosing Est GFR ( Amer) Est GFR (Non-Af Amer) BUN/Creatinine Ratio Glucose Calcium Total Bilirubin Direct Bilirubin AST ALT Alkaline Phosphatase Ammonia < 10.0 L Total Protein Albumin Globulin Albumin/Globulin Ratio Acetaminophen Current Inpatient Medications Current Inpatient Medications: Current Inpatient Medications Al Hydrox/Mg Hydrox/Simethicone (Aluminum/Magnesium Susp 30 Ml Udc) 30 ml PO Q6H PRN PRN Reason: Dyspepsia Stop: 09/18/20 16:51 Last Admin: 08/20/20 06:19 Dose: 30 ml Documented by: Buprenorphine/Naloxone (Buprenorphine/Naloxone 2/0.5mg 1 Tab) 2 tab PO QAM [facility] Stop: 09/20/20 12:29 Acetylcysteine 7,900 mg/ (Dextrose) 1,039.5 mls @ 62.5 mls/hr IV TODAY@0430 ONE; Protocol Stop: 08/21/20 21:07 Last Admin: 08/21/20 04:19 Dose: 62.5 mls/hr Documented by: Ibuprofen (Ibuprofen 200 Mg Tab) 400 mg PO Q8H PRN PRN Reason: Mild Pain Stop: 09/19/20 11:50 Last Admin: 08/21/20 12:13 Dose: 400 mg Documented by: Lidocaine (Lidocaine 5% 1 Patch) 1 patch TD HS [facility] Stop: 09/19/20 20:59 Last Admin: 08/20/20 21:04 Dose: 1 patch Documented by: Melatonin (Melatonin 3 Mg Tab) 6 mg PO HS PRN PRN Reason: Sleep Stop: 09/20/20 01:44 Miscellaneous (Remove Nicoderm Patch) 1 ea N/A DAILY@0859 [facility] Stop: 09/20/20 08:58 Last Admin: 08/21/20 08:58 Dose: 1 ea Documented by: Miscellaneous (Remove Lidoderm Patch) 1 ea N/A QAM [facility] Stop: 09/20/20 08:59 Last Admin: 08/21/20 08:58 Dose: 1 ea Documented by: Nicotine (Nicotine 21 Mg/24 Hr Tdsy) 21 mg TD QAM [facility] Stop: 09/19/20 17:44 Last Admin: 08/21/20 08:58 Dose: 21 mg Documented by: Ondansetron HCl (Ondansetron Inj 2 Mg/Ml 2 Ml Vial) 4 mg IV Q6H PRN PRN Reason: Nausea Stop: 09/18/20 16:51 Last Admin: 08/20/20 07:26 Dose: 4 mg Documented by:
[2020-08-21] MEDS ORDERED: BUPRENORPHINE/NALOXONE 2/0.5MG 1 TAB PO SCH (12:30)
--- NOTE | 2020-08-21 14:08 | Communication Note ---
Date of Service: August 21, 2020 Most recent progress note from [facility] Received; Summarized Below: Diagnoses: opioid dependence, uncomplicated; chronic pain syndrome; nicotine dependence cigarettes, uncomplicated Date of Visit: 07/27/2020 - Documentation indicates the patient began using substances at age 13, beginning with marijuana and progressing over the course of 8 months - eventually using intranasal heroin, up to 7 bags daily. He had used heroin up until 2019. Pt has denied IV drug use. Pt was prescribed pain medications in 2019 following a finger joint surgery, and the relapsed by using pain pills when his prescription ran out. Pt was started on Suboxone after this. Pt did admit to obtaining Suboxone illegally for 14 months prior to presentation to "help control his cravings and also provides good pain relief of his chronic back, bilateral shoulder and hand pain." UDS was positive for Suboxone. Continued on Suboxone 8/2mg one tablet daily. Pt encouraged to follow-up with PCP for treatment of depression.
[2020-08-21 17:09] LABS: INR 1.1 (0.9-1.1); Prothrombin Time 11.7 Seconds (9.0-12.0)
[2020-08-21 17:22] LABS: Albumin Level 3.8 gm/dl (3.4-5.0); Bilirubin Direct 0.3 mg/dl (0-0.2); Bilirubin,Total 1.1 mg/dl (0.2-1); Total Protein 7.5 gm/dl (6.4-8.2)
[2020-08-21] MEDS: LIDOCAINE 5% 1 PATCH TD SCH (20:59)
[2020-08-21 23:01] LABS: Marijuana Quant, GCMS Urine 317 ng/mL (<5)
[2020-08-22 07:17] VITALS: BP 108/56; TEMP 98.1; O2SAT 100
[2020-08-22] MEDS ORDERED: BUPRENORPHINE/NALOXONE 8/2 MG TAB SL ONE (07:36)
[2020-08-22] MEDS: NICOTINE 21 MG/24 HR TDSY TD SCH (07:39)
[2020-08-22] MEDS ORDERED: BUPRENORPHINE/NALOXONE 8/2 MG TAB SL SCH (09:00)
[2020-08-22 09:03] LABS: INR 1.1 (0.9-1.1); Prothrombin Time 11.2 Seconds (9.0-12.0)
[2020-08-22 09:16] LABS: Albumin Level 3.6 gm/dl (3.4-5.0); BUN Creatinine Ratio 13.6 (10-20); Calcium 9.2 mg/dl (8.5-10.1); Creatinine Clr Calc Pharmacy 171.5 ml/min; Est GFR (Non-African American) 128.6; Potassium 3.8 mmol/L (3.5-5.1)
[2020-08-22 09:23] LABS: Bilirubin,Total 1.2 mg/dl (0.2-1); Globulin 3.5 gm/dl (2.5-4.0); Total Protein 7.1 gm/dl (6.4-8.2)
--- NOTE | 2020-08-22 10:33 | Gastroenterology Progress Note ---
Date of Service August 22, 2020 Assessment & Plan (1) Elevated LFTs: (2) Suicide gesture: (3) Tylenol overdose: 1. Stable for discharge when cleared by primary team. 2. Will need close outpatient GI follow up to continue to trend liver panel. Patient is aware that this process may take several weeks. 3. Abstain from all liver toxins such as alcohol and acetaminophen. 4. Recommend ongoing outpatient psychiatric care. Admission and Anticipated Discharge Date Admission Date: August 19, 2020 Subjective Patient states he is feeling well today. He has had resolution of the abdominal pain and he reports improved mood. He is eager to go home. Liver panel and INR are trending down. No complaints at present. Review of Systems Review of Systems: All systems reviewed & are unremarkable except as noted in HPI & below Physical Exam Constitutional: WD/WN, vitals as above Respiratory: normal respiratory effort, lungs clear to auscultation Cardiovascular: RRR, no murmur, no edema Gastrointestinal (Abdomen): normal bowel sounds, soft, nontender, no hepatosplenomegaly Psychiatric: A+Ox3, euthymic affect Results & Data Results & Data ([facility]) Vital Signs (Past 12 Hours) Vital Signs Temp Pulse Resp BP Pulse Ox 08/22/20 07:15 36.7 C 56 L 18 108/56 L 100 08/21/20 23:25 36.5 C 69 20 159/80 H 98 Laboratory Results Abnormal lab results 08/19/20 08/21/20 08/22/20 Range/Units 20:20 16:36 08:25 Glucose 123 H (70-99) mg/dl Total Bilirubin 1.1 H 1.2 H (0.2-1) mg/dl Direct Bilirubin 0.3 H (0-0.2) mg/dl AST 522 H 266 H (15-37) U/L ALT 1399 H 1071 H (12-78) U/L Acetaminophen (10-30) ug/ml U Marijuana THC Carboxy 317 H (<5) ng/mL 08/22/20 Range/Units 08:25 Glucose (70-99) mg/dl Total Bilirubin (0.2-1) mg/dl Direct Bilirubin (0-0.2) mg/dl AST (15-37) U/L ALT (12-78) U/L Acetaminophen < 2 L (10-30) ug/ml U Marijuana THC Carboxy (<5) ng/mL PG Care Time/CCT Total # of Minutes Spent Total Time Spent with Patient: Total time spent is greater than 50% in coordination of care (as documented) at patient's floor/unit and/or counseling patient: Coding Level of Care Code 20969 Subseq Hosp Care Lvl 3 Diagnoses Elevated LFTs R79.89 Suicide gesture X83.8XXA Encounter type: initial encounter Tylenol overdose T39.1X2A Encounter type: initial encounter Injury intent: intentional self-harm (1) Suicide gesture Encounter type: initial encounter Qualified Code(s): X83.8XXA - Intentional self-harm by other specified means, initial encounter (2) Tylenol overdose Encounter type: initial encounter Injury intent: intentional self-harm Qualified Code(s): T39.1X2A - Poisoning by 4-Aminophenol derivatives, intentional self-harm, initial encounter
--- NOTE | 2020-08-22 11:17 | Hospitalist Progress Note ---
Date of Service August 22, 2020 Assessment & Plan (1) Opiate dependence: resumed suboxone 4mg yesterday and suboxone 8mg daily today withdrawal symptoms of pain and diarrhea have resolved (2) Elevated LFTs: 2' to tylenol hepatotoxicity AST/ALT trending down INR stable at 1.1 does not need transfer to transplant center (3) Tylenol overdose: took approximately 47 tabs tylenol 650 mg Tylenol on 08/18 at approximately 1400 hrs. Patient was treated with the N-acetylcysteine infusion protocol and poison control monitored his progress. He was safe to stop the N-acetylcysteine on 08-21 evening (4) Suicide gesture: had an argument with 08/18 no previous suicide attempts endorses depression psych recommending inpatient psychiatric care patient agreeable to go voluntarily (5) Major depression: awaiting transfer to psychiatric facility Present on Admission?: Yes (6) Abdominal pain: resolved likely related to intractable vomiting/muscular strain vs liver inflammation ibuprofen prn (7) Arthralgia: related to overuse at work involves his hands, back and shoulders well controlled on suboxone regimen Present on Admission?: Yes (8) DVT prophylaxis: SCDs Admission and Anticipated Discharge Date Admission Date: August 19, 2020 Subjective Patient doing great this morning. No pain after starting back on suboxone. No diarrhea, no nausea, no vomiting. No abd pain, no arthralgias or myalgias. Feels back to normal. Denies anxiety, depression. Eager to sign himself into a psych rehab facility. Review of Systems Constitutional: no fever, no chills, no fatigue, no weakness, no anorexia, no weight loss and no weight gain Ear, Nose, Mouth, Throat: no nasal congestion, no sore throat and no dysphagia Respiratory: no cough and no dyspnea Cardiovascular: no chest pain, no dyspnea on exertion, no orthopnea and no palpitations Gastrointestinal: no abdominal pain, no nausea, no vomiting, no hematemesis, no dysphagia, no constipation, no diarrhea/loose stools, no blood in stools and no melena Musculoskeletal: no back pain, no joint pain, no stiffness, no myalgia and no muscle weakness Integumentary: no rash, no lesions, no skin ulcer, no erythema, no dry skin and no pruritus Neurologic: no falls, no localized weakness, no generalized weakness, no numbness, no paresthesia, no tremor(s) and no headache(s) Psychiatric: no depression, no suicidal ideation, no homicidal ideation and no anxiety Endocrine: no cold intolerance and no heat intolerance Hematologic / Lymphatic: no easy bleeding and no easy bruising Physical Exam Constitutional: well developed and well nourished; no acute distress Eyes: PERRL, conjunctivae normal, anicteric sclerae ENMT: Mouth: oral mucous membranes not dry Respiratory: normal respiratory effort; no respiratory distress and no labored breathing Auscultation: lungs clear to auscultation bilaterally; no crackles, no rales, no rhonchi and no wheezes Cardiovascular: Rate/Rhythm: regular rate and regular rhythm Heart Sounds: no murmur and no cardiac rub Vessels: normal peripheral pulses and radial pulses present; no JVD Extremities: no edema Gastrointestinal (Abdomen): Inspection/Auscultation: abdomen normal to inspection and normal bowel sounds; abdomen not distended Percussion/Palpation: abdomen soft; abdomen nontender, no guarding, abdomen not rigid and no hepatosplenomegaly Musculoskeletal: Head/Neck/Chest: normocephalic and head atraumatic Spine: no cervical spinal tenderness, no cervical muscular tenderness, no thoracic spinal tenderness and no lumbar spinal tenderness Skin: no rashes, warm and dry multiple tattoos Neurologic: CN's II-XI intact bilaterally and moves all extremities Motor/Sensory: no tremor and no sensory deficit Psychiatric: Orientation: alert, oriented to person, oriented to place and oriented to time Apperance: appropriately groomed; not disheveled Affect: no anxious affect, no flat affect and no tearful affect Mood: no depressed mood Results & Data Results & Data ([facility]) Vital Signs (Past 12 Hours) Vital Signs Temp Pulse Resp BP Pulse Ox 08/22/20 07:15 36.7 C 56 L 18 108/56 L 100 08/21/20 23:25 36.5 C 69 20 159/80 H 98 Laboratory Results bilirubin 1.2 AST 522 --> 266 08/21/20 08/21/20 08/22/20 07:49 16:36 08:25 ALT 1439 H 1399 H 1071 H 08/20/20 08/21/20 08/22/20 07:10 07:49 08:25 INR 1.3 H 1.2 H 1.1 Medications Administered Current Inpatient Medications Al Hydrox/Mg Hydrox/Simethicone (Aluminum/Magnesium Susp 30 Ml Udc) 30 ml PO Q6H PRN PRN Reason: Dyspepsia Stop: 09/18/20 16:51 Last Admin: 08/20/20 06:19 Dose: 30 ml Documented by: Buprenorphine/Naloxone (Buprenorphine/Naloxone 8/2 Mg Tab) 1 tab SL QAM [facility] Stop: 09/21/20 08:59 Last Admin: 08/22/20 08:33 Dose: Not Given Documented by: Ibuprofen (Ibuprofen 200 Mg Tab) 400 mg PO Q8H PRN PRN Reason: Mild Pain Stop: 09/19/20 11:50 Last Admin: 08/21/20 23:22 Dose: 400 mg Documented by: Lidocaine (Lidocaine 5% 1 Patch) 1 patch TD HS [facility] Stop: 09/19/20 20:59 Last Admin: 08/21/20 20:59 Dose: 1 patch Documented by: Melatonin (Melatonin 3 Mg Tab) 6 mg PO HS PRN PRN Reason: Sleep Stop: 09/20/20 01:44 Miscellaneous (Remove Nicoderm Patch) 1 ea N/A DAILY@0859 [facility] Stop: 09/20/20 08:58 Last Admin: 08/22/20 07:39 Dose: 1 ea Documented by: Miscellaneous (Remove Lidoderm Patch) 1 ea N/A QAM [facility] Stop: 09/20/20 08:59 Last Admin: 08/22/20 07:39 Dose: 1 ea Documented by: Nicotine (Nicotine 21 Mg/24 Hr Tdsy) 21 mg TD QAM [facility] Stop: 09/19/20 17:44 Last Admin: 08/22/20 07:39 Dose: 21 mg Documented by: Ondansetron HCl (Ondansetron Inj 2 Mg/Ml 2 Ml Vial) 4 mg IV Q6H PRN PRN Reason: Nausea Stop: 09/18/20 16:51 Last Admin: 08/20/20 07:26 Dose: 4 mg Documented by: PG Care Time/CCT Total # of Minutes Spent Total Time Spent with Patient: Total time spent is greater than 50% in coordination of care (as documented) at patient's floor/unit and/or counseling patient: Coding Level of Care Code 97138 Subseq Hosp Care Lvl 3 Diagnoses Opiate dependence F11.23 Substance use status: in withdrawal Elevated LFTs R79.89 Tylenol overdose T39.1X2A Encounter type: initial encounter Injury intent: intentional self-harm Suicide gesture X83.8XXA Encounter type: initial encounter Major depression F32.2 Major depression recurrence: unspecified whether recurrent Active/Remission status: currently active Major depression episode severity: severe Psychotic features: without psychotic features Abdominal pain R10.13 Abdominal location: epigastric Arthralgia M25.541; M25.542 Joint pain location: hand Laterality: bilateral DVT prophylaxis Z29.9 (1) Suicide gesture Encounter type: initial encounter Qualified Code(s): X83.8XXA - Intentional self-harm by other specified means, initial encounter (2) Opiate dependence Substance use status: in withdrawal Qualified Code(s): F11.23 - Opioid dependence with withdrawal (3) Tylenol overdose Encounter type: initial encounter Injury intent: intentional self-harm Qualified Code(s): T39.1X2A - Poisoning by 4-Aminophenol derivatives, intentional self-harm, initial encounter (4) Abdominal pain Abdominal location: epigastric Qualified Code(s): R10.13 - Epigastric pain (5) Major depression Major depression recurrence: unspecified whether recurrent Active/Remission status: currently active Major depression episode severity: severe Psychotic features: without psychotic features Qualified Code(s): F32.2 - Major depressive disorder, single episode, severe without psychotic features (6) Arthralgia Joint pain location: hand Laterality: bilateral Qualified Code(s): M25.541 - Pain in joints of right hand; M25.542 - Pain in joints of left hand
--- NOTE | 2020-08-22 12:49 | Discharge Summary ---
Date of Service August 22, 2020 Admission HPI Per Admitting Provider 25-year-old gentleman denies significant past medical history presenting here today complaining of a possible Tylenol overdose and abdominal symptoms. Patient states that he got a fight with his yesterday and around 130 to 2 PM yesterday took a significant overdose of Tylenol. States he took between 47 and 48 tablets of 650 mg Tylenol in attempt to harm and kill himself. Patient states he chased this with 1 beer. Patient states it was quite hard to take this many pills and then over the course of the night developed significant nausea and vomiting. Patient still with some trace blood with one of the episodes of vomiting. He denies any other significant co ingestions or toxic ingestions. History several years ago of attempted carbon monoxide suicide but states it was not effective and he did not seek medical treatment or psychiatric treatment at that time. Patient states he was very impulsive and is remorseful now. Patient states had some diarrhea this morning developed some significant u pper abdominal pain without tenderness. States he still significantly nauseous and not been able to keep much down today. Patient denies any trauma. Patient states he became concerned after looking on things then to call poison control referred him here today. Patient denies that he wants to harm self or kill himself currently. Patient states he is unable to keep down his daily Suboxone is unable to smoke today. Principal Diagnosis acute hepatocellular injury due to tylenol overdose Discharge Exam Constitutional well developed and well nourished; no acute distress Eyes PERRL, conjunctivae normal, anicteric sclerae ENMT Mouth: oral mucous membranes not dry Respiratory normal respiratory effort; no respiratory distress and no labored breathing Auscultation: lungs clear to auscultation bilaterally; no crackles, no rales, no rhonchi and no wheezes Cardiovascular Rate/Rhythm: regular rate and regular rhythm Heart Sounds: no murmur and no cardiac rub Vessels: normal peripheral pulses and radial pulses present; no JVD Extremities: no edema Gastrointestinal (Abdomen) Inspection/Auscultation: abdomen normal to inspection and normal bowel sounds; abdomen not distended Percussion/Palpation: abdomen soft; abdomen nontender, no guarding, abdomen not rigid and no hepatosplenomegaly Musculoskeletal Head/Neck/Chest: normocephalic and head atraumatic Spine: no cervical spinal tenderness, no cervical muscular tenderness, no thoracic spinal tenderness and no lumbar spinal tenderness Skin no rashes, warm and dry Neurologic CN's II-XI intact bilaterally and moves all extremities Motor/Sensory: no tremor and no sensory deficit Psychiatric Orientation: alert, oriented to person, oriented to place and oriented to time Apperance: appropriately groomed; not disheveled Affect: no anxious affect, no flat affect and no tearful affect Mood: no depressed mood Discharge Data Allergies Allergy/AdvReac Type Severity Reaction Status Date / Time Penicillins Allergy Anaphylaxis Verified 08/19/20 14:15 Sulfa (Sulfonamide Allergy Anaphylaxis Verified 08/19/20 14:15 Antibiotics) Consultations 08/19/20 14:51 ED Decision to Admit Stat 08/19/20 16:52 Consult Psychiatry Routine 08/19/20 17:08 Consult Behavioral Health Liaison Routine 08/20/20 09:12 Consult Gastroenterology Routine Hospital Course (1) Opiate dependence: resumed suboxone 4mg yesterday and suboxone 8mg daily today withdrawal symptoms of pain and diarrhea have resolved (2) Elevated LFTs: 2' to tylenol hepatotoxicity AST/ALT trending down INR stable at 1.1 does not need transfer to transplant center (3) Hepatocellular injury: (4) Tylenol overdose: took approximately 47 tabs tylenol 650 mg Tylenol on 08/18 at approximate ly 1400 hrs. Patient was treated with the N-acetylcysteine infusion protocol and poison control monitored his progress. He was safe to stop the N-acetylcysteine on 08-21 evening (5) Suicide gesture: had an argument with 08/18 no previous suicide attempts endorses depression psych recommending inpatient psychiatric care patient agreeable to go voluntarily (6) Major depression: awaiting transfer to psychiatric facility (7) Abdominal pain: resolved likely related to intractable vomiting/muscular strain vs liver inflammation ibuprofen prn (8) Arthralgia: related to overuse at work involves his hands, back and shoulders well controlled on suboxone regimen (9) DVT prophylaxis: SCDs Total Time Total Time Spent Total Time Spent (In Minutes): 60 minutes Total Time Includes: Examination of the Patient, Discharge Planning, Medication Reconciliation and Communication With Other Providers Discharge Plan Discharge Items Patient Disposition: Transfer Behavioral Health Fac Reason For Visit: SUICIDE OVERDOSE WITH TYLENOL Discharge Diagnosis: 1. suicide attempt 2. tylenol overdose 3. acute liver injury 4. major depression 5. opiate dependency Activity: Resume your previous activity Non-emergency contact: Primary Care Provider Call non-emergency contact if: you have any medication questions Follow-up/Referrals: Lit Howard, [Physician] - (after discharge from psych facility) PCP,NO [Primary Care Provider] - (within one week of discharge from psychiatric facility for repeat CMP) Diet: Regular Addtl Attending Provider Instructions: 1. See primary care provider for repeat comprehensive metabolic panel within 1 week of discharge from psychiatric facility 2. No tylenol for 3 months 3. No alcohol for 3 months 4. Other resources for major depression and suicide prevention will be provided for you at psychiatric facility Pending Studies at Discharge: No Stand-Alone Forms: My [facility] [employer] Medications and DC Order Prescriptions: New nicotine [Nicoderm CQ] 21 mg/24 hr Patch 24 Hour 21 mg transdermal QAM 30 Days Qty: 30 RF: 0 Continued buprenorphine-naloxone 8-2 mg tablet, sublingual 1 tab SUBLINGUAL DAILY RF: 0 Discharge Orders: Discharge Order (Routine); Ordered 08/22/20 Ordered By: Carin Jaffe/Other Patient Handouts: Know the Symptoms of Depression, Recognizing Suicide Warning Signs ..., Depression and Suicide in Older Adults, Kicking the Smoking Habit Admission Data Admit Date/Time: 08/19/20 14:33 Attending Provider: Carin Brady Admit Provider: Abrahan Perez Primary Care Provider: PCP,NO Other Providers: Abrahan Perez ; Akua Burden ; Lit Howard Coding Level of Care Code D/C Day Management >30 mins Diagnoses Opiate dependence F11.23 Substance use status: in withdrawal Elevated LFTs R79.89 Hepatocellular injury K76.9 Tylenol overdose T39.1X2A Encounter type: initial encounter Injury intent: intentional self-harm Suicide gesture [id number] Encounter type: initial encounter Major depression F32.2 Major depression recurrence: unspecified whether recurrent Active/Remission status: currently active Major depression episode severity: severe Psychotic features: without psychotic features Abdominal pain R10.13 Abdominal location: epigastric Arthralgia M25.541; M25.542 Joint pain location: hand Laterality: bilateral DVT prophylaxis Z29.9
[2020-08-22 19:24] VITALS: PULSE 59
== END 2020-08-22 14:55 | DRG 918 ==
LOC: ED 13:27 → SUATTDRO 14:33 → 2W 14:33

== ENCOUNTER 2020-08-22 13:29 | Inpatient (IN) ==
[~2020-08-22 13:29] MED LIST: ALUMINUM/MAGNESIUM SUSP 30 ML UDC PO PRN; BISMUTH SUBSALICYLATE LIQD 236 ML PO PRN; MAGNESIUM HYDROXIDE SUSP 30 ML UDC PO PRN; SODIUM CHLORIDE 0.65% NA SOLN 45 ML (OCEAN) PRN; hydrOXYzine HCl 25 MG TAB PO PRN
[2020-08-22] MEDS ORDERED: IBUPROFEN 200 MG TAB PO PRN (15:24)
[2020-08-22] MEDS ORDERED: NICOTINE POLACRILEX 2 MG GUM MT PRN (15:47)
[2020-08-22] MEDS ORDERED: NICOTINE 14 MG/24 HR PATCH TD SCH (16:00)
--- NOTE | 2020-08-22 17:40 | History & Physical ---
Date of Service August 22, 2020 Impression / Recommendations Impression 25-year-old male admitted voluntarily for inpatient psychiatric treatment on 08/22/2020 after a ~3 day medical hospitalization s/p very serious intentional Tylenol overdose. Pt initially presented to the ED on 08/19/2020, roughly 24 hours after ingesting ~48 tablets of 650mg Tylenol with the intent to end his life. Pt reported that the suicide attempt was "impulsive" and resulted after an argument with his ; however, patient did drive to a local convenience store with sole intent to purchase the medications on which he overdosed. Pt was initially seen on our psychiatric consult service, with recommendation rendered for inpatient psychiatric treatment after medical clearance. Pt was initially uninterested in continued hospitalization; however, at time of medical clearance he did ultimately sign in voluntarily. Pt did submit a 72-hour notice shortly after admission, but also verbalized that he planned to take treatment seriously and was very interested in obtaining outpatient psychiatric appo intments. Pt identifies very strongly with a self-diagnosis of "depression", but has difficulty clearly articulating criteria that satisfy a formal major depressive disorder at this time. It does seem that patient is forthcoming with information, cooperative with conversation, and wanting to be truthful - but may also be minimizing his symptoms. It will be helpful to gather collateral information from the patient's to better clarify diagnosis. Although liver enzymes have been trending downward, they remain significantly elevated and it is not recommended that any antidepressant medications be initiated at this point regardless of indication for their use. Pt is most focused on referrals for outpatient therapy, which certainly seems appropriate. Pt will also be encouraged to participate in group and recreational programming. We will encourage a family meeting with his to discuss stressors and review discharge and safety planning. Although patient is presently denying SI, he has had only limited therapeutic interventions following a very significant overdose. He has no aftercare in place and he has numerous significant risk factors for suicide. Inpatient psychiatric hospitalization is medically necessary given acute risk for suicide if discharged prematurely. Dr. Akua Burden was directly involved in review and discussion of the patient's case and participated in medical decision making regarding treatment recommendations. (1) Suicide attempt by acetaminophen overdose: 08/22 - Pt denies suicidality at time of admission; however, had a very serious, life-threatening suicide attempt with several significant risk factors for suicide - Admitted to a locked inpatient behavioral health unit, on q15 minute safety checks - Encourage participation in group and recreational therapies - Gather collateral information from outpatient providers - Suggest family meeting to involve outpatient supports in safety planning - Arrange appropriate aftercare (2) Depression: 08/22 - Preliminary diagnosis of depression NOS - Pt strongly self-identifies with a diagnosis of depression, but self-report of symptoms strongly consistent with this clinical diagnosis are somewhat limited. Obviously, patient was experiencing significant enough emotional distress that he resorted to serious, life-threatening actions. It will be helpful to build a therapeutic rapport with the patient as well as gather collateral information from outpatient supports in order to more clearly solidify diagnosis. - Differential includes: major depressive disorder, cyclothymic disorder, and substance-induced mood disorder. There are also some aspects of PTSD and AUBREY reported as well. - At this time, there is not sufficient evidence to suggest initiation of an SSRI is acutely indicated - of course, this would not be initiated in the hospital setting given that his liver enzymes continue to be significantly elevated. - Pt is at least interested in therapy - requesting referral be made to [facility] initially. - Pt aware of recommendation that an outpatient support participate in a family meeting - Pt will be encouraged to attend group and recreational programming - Pt will be assisted in completing a safety plan prior to discharge Depression Type: unspecified Qualified Code(s): F32.9 - Major depressive disorder, single episode, unspecified (3) Hepatocellular injury: 08/22 - Serial CMPs from patient's medical admission had been reviewed. LFTs remain significantly elevated, however, are trending downward. No physical complaints from patient. - Reviewed discharge summary per hospitalist team. Recommending repeat CMP within 1 week of discharge, NO Tylenol for 3 months, and NO alcohol for 3 months. - Pt will need to be referred to a PCP for follow-up appointments (4) Opiate dependence: 08/22 - Pt does admit to current outpatient MAT with Dr. Lopez through [facility]. Pt was cooperative with signing АННА and we have been able to confirm his dosage of Suboxone 8mg/2mg one tablet daily. This medication was held for a period of time on the medical floor due to his liver dysfunction, but had since been resumed with reports patient had been tolerating well. - Pt states he has been utilizing the Suboxone as prescribed - stating only additional substance use is daily marijuana - Will order recovery protocol to reinforce patient's commitment to behavioral changes and focus on reducing risk of relapse. Substance use status: in withdrawal Qualified Code(s): F11.23 - Opioid dependence with withdrawal Inventory Assets Strengths: family support, children and are reported protective factors, employed Needs: appropriate aftercare, development of healthy and effective coping strategies Risk Factors Assessment Male: Yes : Yes Do You Have Access To A Gun?: No Mental Health Diagnoses: No Substance Use Disorders: Yes Family History of Suicide: No Previous Psychiatric Hospitalization: No Hopelessness: No Smoker: Yes Protective Factors Assessment Gnosticist Beliefs: No : Yes Responsible for Young Children: Yes Employed: Yes Stable Relationships: Yes Supportive Family: Yes Psychiatric History Identifying Data VIVIAN WATSON is a 25-year-old M who currently lives in [place], [place] with his and young daughters. Pt denies psychiatric history, but reports struggling with "depression." He was admitted on 08/22/20 14:56 on a 201 voluntary commitment after a 3 day medical admission as patient had ingested a large amount of Tylenol in a very serious suicide attempt. Chief Complaint "Well first off, I wanted to ask about that 72-hour thing." History of Present Illness Vivian Watson is a 25-year-old male admitted voluntarily for inpatient psychiatric treatment on 08/22/2020 upon transfer from the medical floor. Pt initially presented to the ED on 08/19/2020 nearly 24-hours after ingesting ~48 tablets of 650mg Tylenol in a suicide attempt. Pt reported the overdose was "impulsive"; however, he also mentioned that he drove his car to a convenience store with the sole intent to purchase the medications after a verbal altercation with his . Pt was initially evaluated by our service on 08/20/2020 as a medical floor consultation. At that time, his liver enzymes and associated lab workup were escalating to the territory of potential need for transfer to a facility that could accommodate a liver transplant if necessary. AST reached a recorded maximum of 757, while ALT escalated to a recorded maximum of 1439. Gastroenterology was also consulted during his medical admission for recommendations. On psychiatric evaluation, the patient admitted to becoming acutely upset when he and his had engaged in an argument in which he felt his capabilities as a father and "provider" were being questioned. Pt admitted to regretting his decision once he began experiencing symptoms of nausea/vomi ting, diarrhea, and abdominal pain - the same symptoms that triggered his presentation to the ED. Pt was initially uninterested in the idea of psychiatric hospitalization, but at the time of medical clearance was agreeable to voluntary admission. On psychiatric evaluation, he does begin by inquiring "well first off, I wanted to ask about that 72-hour thing." Pt began the session by verbalizing his personal goals of treatment, with motivation to be referred for outpatient therapy and "get medications for my depression, but I know that won't happen here because of my liver." Pt reports no significant changes or additional information to report when compared to his reports obtained during his medical admission. He states "I just never really had someone to talk to. I always just dealt with it, but I guess it was too much." Pt states that at one point he was told "women respond to love, and men respond to respect and that's really true for me. When I feel disrespected as a father or or provider, that's really triggering for me. My family means the literal world to me." Pt frequently reports feeling depressed, but has difficulty clearly articulating how depression may present for him. At this time, he is denying issues with sleep, appetite, motivation, energy, anhedonia, hopelessness, helplessness, or regular SI. 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 Pt does state "my depression is like, it comes and goes. When I'm sad I'm sad." He reports depression generally lasts for a few hour. Pt is denying history of previous suicide attempt but was questioned about reported history that he had a suicide attempt 7 years ago by carbon monoxide poisoning. Pt states that he felt his exhaust was blocked with something, so found a trick on the internet in which you connect a hose to your car window, "keep the other windows open" and rev the gas pedal to contain the item in your car. Pt states "It didn't work, but I really wasn't trying to kill myself." Pt does indicate a significant history of substance abuse as well. He began following with an MAT provider ~1 month ago and states he has been utilizing his Suboxone as prescribed since that time. Pt denies SI presently. He does admit to occasional nightmares related to friends who have by overdose, and describes consistent history of hypervigilance. He denies criteria for a bipolar mood presentation or any history of psychosis. Pt states he is aware of his need for treatment and is planning to take this hospitalization "and the outpatient stuff too" seriously. He denied any physical concerns presently. Past Psychiatric History Current Psychiatric Diagnosis: reports "depression", but no history of formal diagnosis Outpatient Services: None presently Pt was court-mandated to participate in D&A counseling through [facility] several years ago. Previous Psych Admissions: Denies Do You Have Access To A Gun?: No History of Previous Suicide Attempt: No Describe Attempts in the Past: questionable attempt of CO poisoning, though patient denies Past Medication Trials: Denied Past Head Trauma/Neuro History History of Concussion/Seizure: No Allergies Allergy/AdvReac Type Severity Reaction Status Date / Time Penicillins Allergy Anaphylaxis Verified 08/19/20 14:15 Sulfa (Sulfonamide Allergy Anaphylaxis Verified 08/19/20 14:15 Antibiotics) Home Medications Home Medications Medication Instructions Recorded Confirmed Type buprenorphine-naloxone 1 tab SUBLINGUAL DAILY 08/19/20 08/22/20 History Family History Family History of: Depression (mother and father), Anxiety and Alcoholism/Drug Abuse (mother) Family Mental Health History Comment: Pt states his father suffers from PTSD related to history of service, history of mental health hospitalization. Alcohol History Hx of Alcohol Use Over the Past 12 Months: Yes (1-2 drinks per week) AUDIT Total Score: 3 Smoking Use Have You Smoked or Used Tobacco Products in the Last 30 Days: Yes tobacco type: cigarettes and e-cigarettes Smoking Status: Current every day smoker Smoking packs per day: 1 Substance History Hx of Prescription Med Misuse Over the Past 12 Months: No Hx of Over the Counter Med Misuse Over the Past 12 Months: Yes (Overdose on 48 Tylenol FIELD HAND) Hx of Inhalent Misuse Over the Past 12 Months: No Hx of Organic Substance Use Over the Past 12 Months: Yes (MJ, a few hits 3- 4x/wk) Hx of Illegal Substances/Street Drug Use Over Past 12 Months: No Problems as a Result of Past Substance Use: Job Loss, Relationships Ended, Arrested, Life out of Control and 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 Admits to initially consuming marijuana at age 13y/o. Pt states his use progressed after that time as he was seeking substances that would reach undetectable levels sooner, as he was on probation and having regular drug screens. Pt denies significant alcohol use - stating he consumes ~1 beer a week. Pt also consumes ~4 caffeinated beverages daily (coffee or energy drinks). Personal History Living Arrangements: Home (lives with and two young daughters) Highest Grade Completed: Some College (some classes at 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 Hx Legal Problems: Yes Hx Traumatic Life Events: Yes Psychological Trauma History Comment: Admits to a history of emotional trauma related to several friends dying of substance abuse/overdose. Patient History Medical History Ear infection Enteritis No significant past medical history Suicide attempt by acetaminophen overdose Surgical History History of hand surgery Right second finger S/P wisdom tooth extraction Family History Other No significant family history Social History Smoking Status: Current every day smoker Tobacco Type: Cigarettes Age Started Using Tobacco: 15; packs per day: 0.5; Cigarettes Per Day: 10; Second Hand Exposure: No; Hx Alcohol Use: Yes Alcohol type: beer Hx Substance Use: Yes Last Used Substance: Hours (ago) Last Used Substance Other:: Smoked marijuana in AM on 08/19 Substance Use Type Other:: 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 Physical Exam Psychiatric: Orientation: alert, oriented x 3 and cooperative Apperance: appropriately dressed, appropriately groomed and appeared stated age Thin, but fit appearing male, seated in chair. Appears anxious based on fidgeting behavior and frequently shifting positions, but does not appear to be in acute distress. Pt is casually dressed, wearing a t-shirt and gym pants. He appears mildly unkempt, admitting he has not been able to shower since his initial presentation. Otherwise, it seems he attends appropriate to grooming and hygiene. Eye Contact: good eye contact Motor Behavior: steady gait and station and + psychomotor agitation (fidgety, frequently shifting positions in chair) Speech: normal rate/rhythm/volume of speech Affect: + anxious affect, + tearful affect and mood congruent with affect Mood: + depressed mood and + anxious mood Thought Process: goal directed thought process, clear/coherent thought process and thought association intact Thought Content: reality based without delusions; no hopelessness and no worthlessness Suicidal Thoughts: denies suicidal thoughts and denies suicidal intent Homicidal Thoughts: denies homicidal thoughts Hallucinations: no auditory hallucinations and no visual hallucinations Cognition: recent memory grossly intact, attention grossly intact and language grossly intact Estimated Intelligence: consistent with education level Insight: + fair insight Judgement: + fair judgement Vital Signs (Past 24 Hours): Last Vital Signs Temp 36.7 C 08/22/20 15:26 Pulse 68 08/22/20 15:26 Resp 16 08/22/20 15:26 BP 157/88 H 08/22/20 15:26 Pulse Ox 100 08/22/20 15:26 Exam Statement: A physical exam was performed on the medical floor prior to admission to the unit by Dr. Carin Brady MD. I accept that physical as correct/medical clearance for the inpatient physical exam. Results & Data ([facility]) Current Inpatient Medications Current Inpatient Medications: Current Inpatient Medications Al Hydrox/Mg Hydrox/Simethicone (Aluminum/Magnesium Susp 30 Ml Udc) 30 ml PO Q4H PRN PRN Reason: GI Upset Stop: 09/21/20 13:24 Bismuth Subsalicylate (Bismuth Subsalicylate Liqd 236 Ml) 15 ml PO PRN PRN PRN Reason: Loose Stool Stop: 09/21/20 13:24 Buprenorphine/Naloxone (Buprenorphine/Naloxone 8/2 Mg Tab) 1 [facility] Stop: 09/22/20 08:59 Hydroxyzine HCl (Hydroxyzine Hcl 25 Mg Tab) 50 mg PO HSZ PRN PRN Reason: Insomnia Stop: 09/21/20 13:24 Hydroxyzine HCl (Hydroxyzine Hcl 25 Mg Tab) 25 mg PO Q4H PRN PRN Reason: Anxiety Stop: 09/21/20 13:24 Ibuprofen (Ibuprofen 200 Mg Tab) 400 mg PO QID PRN PRN Reason: Pain Stop: 09/21/20 15:23 Magnesium Hydroxide (Magnesium Hydroxide Susp 30 Ml Udc) 30 ml PO DAILY PRN PRN Reason: Constipation Stop: 09/21/20 13:24 Miscellaneous (Remove Nicoderm Patch) 1 ea N/A DAILY@[id number] [facility] Stop: 09/22/20 08:58 Nicotine (Nicotine 14 Mg/24 Hr Patch) 14 mg TD [facility] Stop: 09/21/20 15:59 Nicotine Polacrilex (Nicotine Polacrilex 2 Mg Gum) 1 piece MT Q2H PRN PRN Reason: Nicotine Withdrawal Stop: 09/21/20 15:46 Sodium Chloride (Sodium Chloride 0.65% Na Soln 45 Ml ([place])) 1 - 2 sprays NA PRN PRN PRN Reason: Nasal Dryness/Congestion Stop: 09/21/20 13:24
--- NOTE | 2020-08-23 07:50 | Psychiatric Progress Note ---
Date of Service August 23, 2020 Impression / Recommendations Impression 25-year-old male admitted voluntarily for inpatient psychiatric treatment on 08/22/2020 after a ~3 day medical hospitalization with hepatic injury s/p intentional Tylenol overdose. He initially presented to the ED on 08/19/2020, roughly 24 hours after ingesting ~48 tablets of 650mg Tylenol with the intent to end his life. Pt reported that the suicide attempt was "impulsive" and resulted after an argument with his ; however, patient did drive to a local convenience store with sole intent to purchase the medication on which he overdosed. He initially declined recommendations for inpatient psychiatric t reatment, and although he ultimately signed in voluntarily, he submitted a 72- hour notice shortly after admission. He is engaging with treatment here, and is willing for referral for outpatient therapy. Although he refers to "depression", he does not endorse symptoms consistent with depression; he describes a suicide attempt as "I snapped," denies prolonged mood symptoms. He is, however, not overly psychologically minded and has some difficulty identifying his emotions, so definitive diagnosis will require further education and exploration and therapy. Collateral information from the patient's may also be helpful to better clarify diagnosis. Although liver enzymes have been trending downward, they remain significantly elevated and he was just resumed on Suboxone which is hepatically metabolized, so we have not started any medications to target mood at this point. He is denying all depressive symptoms and suicidal thoughts here, and we are working on his coping skills and dis charge plans. Although patient is presently denying SI, he has had only limited therapeutic interventions following a very significant overdose. He has no aftercare in place and he has numerous significant risk factors for suicide. Inpatient psychiatric hospitalization is medically necessary given acute risk for suicide if discharged prematurely. (1) Suicide attempt by acetaminophen overdose: 08/22 - Pt denies suicidality at time of admission; however, had a very serious, life-threatening suicide attempt with several significant risk factors for suicide - Admitted to a locked inpatient behavioral health unit, on q15 minute safety checks - Encourage participation in group and recreational therapies - Gather collateral information from outpatient providers - Suggest family meeting to involve outpatient supports in safety planning - Arrange appropriate aftercare 08/23 -Continue with groups and therapy, work on discharge safety plan, schedule meeting with , refer for outpatient treatment. (2) Depression: 08/22 - Preliminary diagnosis of depression NOS - Pt strongly self-identifies with a diagnosis of depression, but self-report of symptoms strongly consistent with this clinical diagnosis are somewhat limited. Obviously, patient was experiencing significant enough emotional distress that he resorted to serious, life-threatening actions. It will be helpful to build a therapeutic rapport with the patient as well as gather collateral information from outpatient supports in order to more clearly solidify diagnosis. - Differential includes: major depressive disorder, cyclothymic disorder, and substance-induced mood disorder. There are also some aspects of PTSD and AUBREY reported as well. - At this time, there is not sufficient evidence to suggest initiation of an SSRI is acutely indicated - of course, this would not be initiated in the hospital setting given that his liver enzymes continue to be significantly elevated. - Pt is at least interested in therapy - requesting referral be made to [facility] initially. - Pt aware of recommendation that an outpatient support participate in a family meeting - Pt will be encouraged to attend group and recreational programming - Pt will be assisted in completing a safety plan prior to discharge 08/23 -Collateral information from may be helpful to clarify if there is an underlying mood disorder. Cannot rule out impact of surreptitious substance use. (3) Hepatocellular injury: 08/22 - Serial CMPs from patient's medical admission had been reviewed. LFTs remain significantly elevated, however, are trending downward. No physical complaints from patient. - Reviewed discharge summary per hospitalist team. Recommending repeat CMP within 1 week of discharge, NO Tylenol for 3 months, and NO alcohol for 3 months. - Pt will need to be referred to a PCP for follow-up appointments 08/23 -LFTs continue to trend downward; AST 101, ALT 781, INR 1.0. (4) Opiate dependence: 08/22 - Pt does admit to current outpatient MAT with Dr. Lopez through [facility]. Pt was cooperative with signing АННА and we have been able to confirm his dosage of Suboxone 8mg/2mg one tablet daily. This medication was held for a period of time on the medical floor due to his liver dysfunction, but had since been resumed with reports patient had been tolerating well. - Pt states he has been utilizing the Suboxone as prescribed - stating only additional substance use is daily marijuana - Will order recovery protocol to reinforce patient's commitment to behavioral changes and focus on reducing risk of relapse. Inventory Assets Strengths: family support, children and are reported protective factors, employed Needs: appropriate aftercare, development of healthy and effective coping strategies Risk Factors Assessment Male: Yes : Yes Do You Have Access To A Gun?: No Mental Health Diagnoses: No Substance Use Disorders: Yes Family History of Suicide: No Previous Psychiatric Hospitalization: No Hopelessness: No Smoker: Yes Protective Factors Assessment Zoroastrian Beliefs: No : Yes Responsible for Young Children: Yes Employed: Yes Stable Relationships: Yes Supportive Family: Yes Interval History Identifying Information VIVIAN WATSON is a 25-year-old M who currently lives in [place], [place] with his and young daughters, has a history of substance abuse, and was admitted on 08/22/20 14:56 on a 201 voluntary commitment after a 3 day medical admission for treatment of acetaminophen overdose after ho took #48 tabs of 650mg Tylenol in a suicide attempt. Chief Complaint "All right, I still have my plan". Review of Systems Sleep Information Total Hours of Sleep: 6 Meal Information Percent Meal Consumed - Dinner: 100 Subjective Subjective Patient was seen & assessed and interval progress reviewed with nursing and social work. Staff report that soon after admission, he submitted a 72-hour notice. He said he was concerned about his being home with their 2 children without childcare. He declined the recovery protocol workbook when it was offered to him, stating he had been to rehab before. He did attend self awareness group last evening. On my assessment, he states that although he did not really want to be admitted to the [facility], treatment has been helpful and it is helping to "take a step back from things." He denies all symptoms of depression, and states that he tried to end his life because "I just snapped." He states that he does not talk about his emotions, and struggles to even identify his emotions, but just "pushes them down." He sees his overdose as "everything just built up and came out." He denies suicidal thoughts currently, and is focused on discharge. He wants to follow-up with therapy and recognizes that he needs to do some work on identifying his own emotions, and is considering the need for family/couples therapy as well. He denies GI symptoms and pain, and describes his mood as "determined." Physical Exam Psychiatric Orientation: alert and cooperative Apperance: appropriately dressed, appropriately groomed and appeared stated age Wearing shorts, a T-shirt, socks, and sandals. Multiple tattoos bilateral upper extremities. Adequate hygiene and grooming Eye Contact: + fair eye contact Motor Behavior: steady gait and station and + psychomotor agitation Speech: normal rate/rhythm/volume of speech Irritable edge. "All right." Thought Process: goal directed thought process Thought Content: reality based without delusions Suicidal Thoughts: denies suicidal thoughts Homicidal Thoughts: denies homicidal thoughts Cognition: recent memory grossly intact, attention grossly intact and language grossly intact Insight: + fair insight Judgement: + fair judgement Vital Signs (Past 24 Hours) Last Vital Signs Temp 36.6 C 08/23/20 06:40 Pulse 80 08/23/20 06:40 Resp 16 08/23/20 06:40 BP 126/73 08/23/20 06:40 Pulse Ox 100 08/22/20 15:26 Results & Data ([facility]) Current Inpatient Medications Current Inpatient Medications: Current Inpatient Medications Al Hydrox/Mg Hydrox/Simethicone (Aluminum/Magnesium Susp 30 Ml Udc) 30 ml PO Q4H PRN PRN Reason: GI Upset Stop: 09/21/20 13:24 Bismuth Subsalicylate (Bismuth Subsalicylate Liqd 236 Ml) 15 ml PO PRN PRN PRN Reason: Loose Stool Stop: 09/21/20 13:24 Buprenorphine/Naloxone (Buprenorphine/Naloxone 8/2 Mg Tab) 1 tab SL QAM [facility] Stop: 09/22/20 08:59 Hydroxyzine HCl (Hydroxyzine Hcl 25 Mg Tab) 50 mg PO HSZ PRN PRN Reason: Insomnia Stop: 09/21/20 13:24 Hydroxyzine HCl (Hydroxyzine Hcl 25 Mg Tab) 25 mg PO Q4H PRN PRN Reason: Anxiety Stop: 09/21/20 13:24 Ibuprofen (Ibuprofen 200 Mg Tab) 400 mg PO QID PRN PRN Reason: Pain Stop: 09/21/20 15:23 Magnesium Hydroxide (Magnesium Hydroxide Susp 30 Ml Udc) 30 ml PO DAILY PRN PRN Reason: Constipation Stop: 09/21/20 13:24 Miscellaneous (Remove Nicoderm Patch) 1 ea N/A DAILY@[id number] [facility] Stop: 09/22/20 08:58 Nicotine (Nicotine 21 Mg/24 Hr Tdsy) 21 mg TD QAM CARIDAD Stop: 09/22/20 08:59 Nicotine Polacrilex (Nicotine Polacrilex 2 Mg Gum) 1 piece MT Q2H PRN PRN Reason: Nicotine Withdrawal Stop: 09/21/20 15:46 Sodium Chloride (Sodium Chloride 0.65% Na Soln 45 Ml ([place])) 1 - 2 sprays NA PRN PRN PRN Reason: Nasal Dryness/Congestion Stop: 09/21/20 13:24 Mental Health & Subst Abuse Tx Therapist Name of Therapist: None Metal Container Maker Name of Metal Container Maker: None Post Discharge Appointments Primary Care Physician Name Of Family Doctor: None Specialist Name of Specialist: [facility] Phone Number for Specialist: [phone] Date of Appointment with Specialist: 08/31/20 Time of Appointment with Specialist: 10:30am Contact Information Discharge Discharge Address: [address] [place] [id number] (1) Opiate dependence Substance use status: in withdrawal Qualified Code(s): F11.23 - Opioid dependence with withdrawal (2) Depression Depression Type: unspecified Qualified Code(s): F32.9 - Major depressive d isorder, single episode, unspecified
[2020-08-23] MEDS: NICOTINE 21 MG/24 HR TDSY TD SCH (08:25)
[2020-08-23] MEDS: BUPRENORPHINE/NALOXONE 8/2 MG TAB SL SCH (08:28)
[2020-08-23 09:27] LABS: Prothrombin Time 10.5 Seconds (9.0-12.0)
[2020-08-23 09:30] LABS: BUN Creatinine Ratio 17.9 (10-20); Calcium 9.4 mg/dl (8.5-10.1); Est GFR (African American) 149.9; Est GFR (Non-African American) 129.3; Potassium 4.2 mmol/L (3.5-5.1)
[2020-08-23 09:33] LABS: Albumin Globulin Ratio 1.1 (0.9-2); Bilirubin,Total 1.1 mg/dl (0.2-1); Globulin 3.5 gm/dl (2.5-4.0); Total Protein 7.5 gm/dl (6.4-8.2)
[2020-08-24] MEDS: NICOTINE 21 MG/24 HR TDSY TD SCH (08:35)
[2020-08-24] MEDS: BUPRENORPHINE/NALOXONE 8/2 MG TAB SL SCH (08:35)
--- NOTE | 2020-08-24 12:16 | Discharge Summary ---
Date of Service August 24, 2020 History of Present Illness Francisco J Crenshaw is a 25-year-old male admitted voluntarily for inpatient psychiatric treatment on 08/22/2020 upon transfer from the medical floor. Pt initially presented to the ED on 08/19/2020 nearly 24-hours after ingesting ~48 tablets of 650mg Tylenol in a suicide attempt. Pt reported the overdose was "impulsive"; however, he also mentioned that he drove his car to a convenience store with the sole intent to purchase the medications after a verbal altercation with his . Pt was initially evaluated by our service on 08/20/2020 as a medical floor consultation. At that time, his liver enzymes and associated lab workup were escalating to the territory of potential need for transfer to a facility that could accommodate a liver transplant if necessary. AST reached a recorded maximum of 757, while ALT escalated to a recorded maximum of 1439. Gastroenterology was also consulted during his medical admission for recommendations. On psychiatric evaluation, the patient admitted to becoming acutely upset when he and his had engaged in an argument in which he felt his capabilities as a father and "provider" were being questioned. Pt admitted to regretting his decision once he began experiencing symptoms of nausea/vomiting, diarrhea, and abdominal pain - the same symptoms that triggered his presentation to the ED. Pt was initially uninterested in the idea of psychiatric hospitalization, but at the time of medical clearance was agreeable to voluntary admission. On psychiatric evaluation, he does begin by inquiring "well first off, I wanted to ask about that 72-hour thing." Pt began the session by verbalizing his personal goals of treatment, with motivation to be referred for outpatient therapy and "get medications for my depression, but I know that won't happen here because of my liver." Pt reports no significant changes or additional information to report when compared to his reports obtained during his medical admission. He states "I just never really had someone to talk to. I always just dealt with it, but I guess it was too much." Pt states that at one point he was told "women respond to love, and men respond to respect and that's really true for me. When I feel disrespected as a father or or provider, that's really triggering for me. My family means the literal world to me." Pt frequently reports feeling depressed, but has difficulty clearly articulating how depression may present for him. At this time, he is denying issues with sleep, appetite, motivation, energy, anhedonia, hopelessness, helplessness, or regular SI. 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 Pt does state "my depression is like, it comes and goes. When I'm sad I'm sad." He reports depression generally lasts for a few hour. Pt is denying history of previous suicide attempt but was questioned about reported history that he had a suicide attempt 7 years ago by carbon monoxide poisoning. Pt states that he felt his exhaust was blocked with something, so found a trick on the internet in which you connect a hose to your car window, "keep the other windows open" and rev the gas pedal to contain the item in your car. Pt states "It didn't work, but I really wasn't trying to kill myself." Pt does indicate a significant history of substance abuse as well. He began following with an MAT provider ~1 month ago and states he has been utilizing his Suboxone as prescribed since that time. Pt denies SI presently. He does admit to occasional nightmares related to friends who have by overdose, and describes consistent history of hypervigilance. He denies criteria for a bipolar mood presentation or any history of psychosis. Pt states he is aware of his need for treatment and is planning to take this hospitalization "and the outpatient stuff too" seriously. He denied any physical concerns presently. Physical Exam Psychiatric Orientation: alert, oriented x 3 and cooperative Apperance: appropriately dressed, appropriately groomed and appeared stated age Eye Contact: + fair eye contact Motor Behavior: steady gait and station Speech: normal rate/rhythm/volume of speech Affect: euthymic affect The patient became tearful when describing his feelings regarding the preadmission episode that involved his reportedly telling him that he was not a good father to their 2 young children "My mood is good now. I am hopeful." Thought Process: goal directed thought process Thought Content: reality based without delusions Suicidal Thoughts: denies suicidal thoughts Homicidal Thoughts: denies homicidal thoughts Hallucinations: no auditory hallucinations and no visual hallucinations Cognition: recent memory grossly intact, remote memory grossly intact, attention grossly intact and language grossly intact Estimated Intelligence: + above average estimated intelligence Insight: + fair insight Judgement: good judgement Vital Signs (Past 24 Hours) Last Vital Signs Temp 36.7 C 08/24/20 10:49 Pulse 68 08/24/20 10:49 Resp 16 08/24/20 10:49 BP 157/88 H 08/24/20 10:49 Pulse Ox 100 08/24/20 10:49 Principal Diagnosis Unspecified depression Psychiatric Data During the course of hospitalization the patient was offered various modalities of psychiatric treatment and education. These included individual, group, activity, and family interventions. The option of antidepressant medications were discussed with the patient at some length, but he said that he would prefer not to take any medications currently, and among other explanations was the fact that he is aware that his liver enzymes remain elevated. He was continued on Suboxone for opioid habituation. The patient notes that although he is only been part of a formal Suboxone program for about a month, he had been purchasing Suboxone "on the street" for some time now and estimates that he has been clean of all chemical substances, including his drug of choice, cocaine, as well as opioids for approximately 3 years. He worked actively in group therapy as well as and recreational therapy ("activity") and processed the fact that, as he put it, he "overreacted" when his accused him of being a bad father. 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 He explains that he has struggled very hard over the past several years to "get [his] life together." A contributing factor in this decision was the of his older daughter, his marriage, and a strong sense of obligation to be a reliable and father. 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 He also noted that he is buddhism, and it is his belief that the Bible tells "men to love their wives, and wives to respect their husbands." Within this context, on the day of the patient's overdose, his had left him temporarily to run an errand, and he was supposed to be watching his 2 young children. The younger of the 2 children, a 2-year-old, left the room and the patient was located and went to her room, and shut the door. The patient's returned home, found one of the children missingalthough the patient had not fallen asleep and knew where "missing" child was. According the patient, his immediately became very upset and come among other things, told the patient that he was a bad father. (Her exact words are uncertain.) Given the patient's dedicated struggle to become a reliable, dependable, adult man who takes care of of his responsibilities it was extremely hard for the patient to hear what he experienced as words of disrespect from his . The patient stated, "basically, what I heard was that she was saying you're still just a fuck-up," and it really hurt. The focus of treatment involved helping the patient recognize his 's depreciating comment does not make him a failure, and that he needs to focus on the substantial and even remarkable improvements that he has made in the past several yearsand not allow anyone, including his , to define him. The patient also said that he had always been the kind of person that thought it was weak to talk about feelings, and in family interventions he was able to effectively communicate to his what he was hoping she would be able to provide for him in terms of reflective listening and understanding. During a family meeting with the patient's on the day of discharge the patient's stated clearly that she is eager for the patient to come home, and that she feels that he has improved to the degree that she feels fully comfortable in providing the support that the patient has requested. The pa zaria also emphasizes that he plans to enter individual psychotherapy, and we discussed the concept of "client focused treatment" in which he will take responsibility for telling the therapist what he wants to accomplish, and also he will tell the therapist if he feels that he or she is missing the connor." The patient notes that in the past he has been in therapy where the therapist seems to simply mild certain platitudes or clichs, and he says that right now he feels that he mostly wants to be listened to and understood. The patient's affect is currently bright. He reports that his mood is "good" and "a lot better," and he convincingly reports that he regrets his suicide attempt and was truly frightened when he learned that he might have had severe even fatal complications from the overdose. He strongly and convincingly denies any current thoughts of suicide. He also enumerates his safety plan for community reentry, and talks about his long-term career plansas well as his strong commitment to his family. The patient was also able to hear us when we suggested that he may be "burning out" by working so much," and that since his is a 2 income family, he needs to be very careful to work reasonable hours, recognize that he is already proving himself by being a good father and holding a steady job, and set limits on the amount of time. The patient says that one of his plans is to speak further with his pressure supervisor, and he notes that he is already spoken with the personnel office, so that he can make arrangements to reduce his hours in order to spend more time with his family and to have more time for decompression and participation in treatment. Day of Discharge Assessment On the day of discharge, the patient was found to be appropriately dressed and groomed. He was pleasant and cooperative. His speech was delivered at a normal rate and rhythm, and his normal volume. He was fairly animated in his body language. The patient reports that his mood is "much better," although he says that he still feels a certain amount of emotional pain when he thinks about his 's depreciating comments. The patient's affect is generally bright, although he did tear up several times while discussing how hard he has tried to get his life in order, to earn respect, particular from his , and how hard it was for him to have his suggest that she sees him as a failure. The patient's thought processes demonstrated tight associations. His thought content is devoid of any psychotic features, and he is capable of operational thinking and insight into what he now recognizes was an overreaction or distortion. There is no evidence of perceptual disturbances. The patient's insight is at least fair and his judgment at this point is good. He is committed to outpatient treatment. I would assess the patient's intelligence is being above average. Although he does have a past history of antisocial behavior, he is clearly quickwitted and resourceful. Transition of Care Transition Of Care Record: was reviewed with the patient Advance Directives Advance Directives Information Provided: Yes Advance Directives: No Mental Health Advance Directive: No Advance Directives on File: No Living Will: No Power of Flight Communications Officer: No Advance Directives Reason:: Declines as Mental Health Visit. Risk Factors Assessment Male: Yes : Yes Do You Have Access To A Gun?: No Mental Health Diagnoses: No Substance Use Disorders: Yes Previous Attempt: No Family History of Suicide: No Previous Psychiatric Hospitalization: No Hopelessness: No Smoker: Yes Protective Factors Assessment Anabaptist Beliefs: No : Yes Responsible for Young Children: Yes Employed: Yes Stable Relationships: Yes Supportive Family: Yes Good Rapport with Provider: No Absence of Any Risk Factors Above: No Tobacco Cessation at Discharge Tobacco Cessation Medication Prescribed at Discharge: Offered & Prescribed Practical counseling provided including: recognizing danger situations, developing coping skills and providing basic information about quitting Tobacco Cessation Outpatient Followup: Referral for outpatient treatment offered and refused (The patient will be receiving treatment of dual diagnosis program.) Total Time Total Time Spent: Greater Than 30 Minutes Total Time Includes: Examination of the patient, Discharge Planning, Medication Reconciliation and Communication with other providers Discharge Data Lab Results 08/23/20 08/23/20 08:42 09:01 PT 10.5 INR 1.0 Sodium 141 Potassium 4.2 Chloride 109 H Carbon Dioxide 29 Anion Gap 3.0 BUN 13 Creatinine 0.70 Est Cr Clr Drug Dosing 170.0 Est GFR ( Amer) 149.9 Est GFR (Non-Af Amer) 129.3 BUN/Creatinine Ratio 17.9 Glucose 96 Calcium 9.4 Total Bilirubin 1.1 H AST 101 H ALT 781 H Alkaline Phosphatase 71 Total Protein 7.5 Albumin 4.0 Globulin 3.5 Albumin/Globulin Ratio 1.1 Hospital Course (1) Suicide attempt by acetaminophen overdose: 08/22 - Pt denies suicidality at time of admission; however, had a very serious, life-threatening suicide attempt with several significant risk factors for suicide - Admitted to a locked inpatient behavioral health unit, on q15 minute safety checks - Encourage participation in group and recreational therapies - Gather collateral information from outpatient providers - Suggest family meeting to involve outpatient supports in safety planning - Arrange appropriate aftercare 08/23 -Continue with groups and therapy, work on discharge safety plan, schedule meeting with , refer for outpatient treatment. 08/24 -Patient continues to deny suicidality. He is found to have received maximum benefit from hospitalization and is now deemed to be able to safely and effectively continue treatment on an outpatient basis. (2) Depression: 08/22 - Preliminary diagnosis of depression NOS - Pt strongly self-identifies with a diagnosis of depression, but self-report of symptoms strongly consistent with this clinical diagnosis are somewhat limited. Obviously, patient was experiencing significant enough emotional distress that he resorted to serious, life-threatening actions. It will be helpful to build a therapeutic rapport with the patient as well as gather collateral information from outpatient supports in order to more clearly solidify diagnosis. - Differential includes: major depressive disorder, cyclothymic disorder, and substance-induced mood disorder. There are also some aspects of PTSD and AUBREY reported as well. - At this time, there is not sufficient evidence to suggest initiation of an SSRI is acutely indicated - of course, this would not be initiated in the hospital setting given that his liver enzymes continue to be significantly elevated. - Pt is at least interested in therapy - requesting referral be made to [facility] initially. - Pt aware of recommendation that an outpatient support participate in a family meeting - Pt will be encouraged to attend group and recreational programming - Pt will be assisted in completing a safety plan prior to discharge 08/23 -Collateral information from may be helpful to clarify if there is an underlying mood disorder. Cannot rule out impact of surreptitious substance use. 08/24 -The patient strongly denies surreptitious use of substances, although this cannot be ruled out. -Is significant contributing factor to the patient's emotional distress seems to be the fact that he is driven to, essentially, make up for a responsible behaviors in the past by overworking and overcompensating. He is also, as he points out, highly emotionally susceptible to feedback that suggests that he has not made great strides to improve and recover. The patient is now fully aware of this and understands that his self-worth needs to come primarily from within. His plan is to continue to work on this issue on an outpatient basis. (3) Hepatocellular injury: 08/22 - Serial CMPs from patient's medical admission had been reviewed. LFTs remain significantly elevated, however, are trending downward. No physical complaints from patient. - Reviewed discharge summary per hospitalist team. Recommending repeat CMP within 1 week of discharge, NO Tylenol for 3 months, and NO alcohol for 3 months. - Pt will need to be referred to a PCP for follow-up appointments 08/23 -LFTs continue to trend downward; AST 101, ALT 781, INR 1.0. (4) Opiate dependence: 08/22 - Pt does admit to current outpatient MAT with Dr. Lopez through [email or web address]. Pt was cooperative with signing АННА and we have been able to confirm his dosage of Suboxone 8mg/2mg one tablet daily. This medication was held for a period of time on the medical floor due to his liver dysfunction, but had since been resumed with reports patient had been tolerating well. - Pt states he has been utilizing the Suboxone as prescribed - stating only additional substance use is daily marijuana - Will order recovery protocol to reinforce patient's commitment to behavioral changes and focus on reducing risk of relapse. Mental Health & Subst Abuse Tx Therapist [facility] Date of Therapist Appointment: 08/27/20 Time of Therapist Appointment: 9:00am Therapy Appointment Comment: [address], [address], [place], [place] Therapist Release of Information: Obtained, Reviewed and Signed Assessment Nurse Practitioner Name of Assessment Nurse Practitioner: None Post Discharge Appointments Primary Care Physician Name Of Family Doctor: Dr. Valdez [facility] Date of Appointment with PCP: 08/28/20 Time of Appointment with PCP: 11:30am Provider Appointment Comment: [address], [place] Primary Care Release of Information: Obtained, Reviewed and Signed Specialist Name of Specialist: [email or web address] Phone Number for Specialist: [phone] Date of Appointment with Specialist: 08/31/20 Time of Appointment with Specialist: 10:30am Specialist Release of Information: Obtained, Reviewed and Signed Smoking Cessation Counseling Tobacco Cessation Medication Prescribed at Discharge: Offered & Prescribed Contact Information Discharge Discharge Address: [address] [place] [id number] Discharge Plan Discharge Items Patient Disposition: Home - Self-Care Reason For Visit: DEPRESSION NOS Discharge Diagnosis: Unspecified Depression Activity: Per Instructions section Non-emergency contact: Psychiatrist and Therapist Call non-emergency contact if: you have any medication questions and your symptoms worsen Follow-up/Referrals: PCP,NO [Primary Care Provider] - Diet: Regular Addtl Attending Provider Instructions: SPECIAL CARE INSTRUCTIONS: 1. Follow through with your scheduled aftercare appointments. If unable to keep an appointment, please call to reschedule. 2. Take your medication only as prescribed. Medication should not be changed or stopped without the approval of your doctor. In the event of worsening symptoms or concerns about side effects, contact your doctor immediately. 3. Utilize new healthy coping skills, anger management skills, and stress management skills learned during your hospitalization. Journal feelings and process them with a support person. Identify stressors or situations that may result in relapse, deterioration or inappropriate behaviors and develop a plan to deal with those issues. 4. If your coping skills are ineffective and you are in crisis, contact your outpatient providers for direction. If unable to reach your providers, please call the [facility] CRISIS LINE AT , go to the [facility] walk-in center at [address], [place], or go to the closest Emergency Room. 5. Avoid alcohol and un-prescribed drugs. 6. You have been provided with the Mental Health Advance Directives Pamphlet for your review. AFTERCARE APPOINTMENTS: * Please call your insurance company prior to your scheduled appointment to confirm your aftercare providers are covered. Take your insurance information to your appointments. WHO TO CALL AND WHEN: Medical Emergencies: For questions or emergencies related to your hospital stay, please contact the Inpatient Behavioral Health Unit at [phone]. A wraparound facilitator is on-call 18/05 for the Behavioral Health Unit for emergencies At any time you feel your situation is an emergency, you may also call 911 immediately. Pending Studies at Discharge: No Stand-Alone Forms: My [facility], Smoking Cessation Medications and DC Order Prescriptions: New nicotine (polacrilex) [Nicorelief] 2 mg Gum 1 piece of gum MT Q2H PRN (Reason: Nicotine Cravings) Qty: 110 RF: 0 nicotine [Nicoderm CQ] 21 mg/24 hr Patch 24 Hour 21 mg transdermal QAM Qty: 14 RF: 0 hydroxyzine HCl 25 mg Tablet 50 mg PO HSZ PRN (Reason: Sleep) Qty: 15 RF: 1 Continued buprenorphine-naloxone 8-2 mg tablet, sublingual 1 tab SUBLINGUAL DAILY RF: 0 Discharge Orders: Discharge Order (Routine); Ordered 08/24/20 Ordered By: Francisco J Jaffe/Other Patient Handouts: Counseling for Depression, ED How to Quit Smoking Admission Data Admit Date/Time: 08/22/20 14:56 Attending Provider: Akua Burden Admit Provider: Akua Burden Primary Care Provider: PCP,NO Other Interventions: Discharge Summary Assessment (RN) Last Done: 08/24/20 10:49 PSY Interdisciplinary Discharge Planning Last Done: 08/24/20 11:10 [place] [address] D/C day mgmt > 30 min Patient Type Established History Expanded Problem Focused Exam Expanded Problem Focused Medical Decision Making Moderate Complexity Diagnoses Suicide attempt by acetaminophen overdose T39.1X2A Depression F32.9 Depression Type: unspecified Hepatocellular injury K76.9 Opiate dependence F11.23 Substance use status: in withdrawal Time Spent (min) 60
== END 2020-08-24 11:15 | disposition home or self-care (01) | DRG 881 ==
LOC: 3S 14:56